=== PATIENT | male | born 1995 | race Two or more races ===

== ENCOUNTER 2019-09-25 21:40 | Emergency (ER) | payer OTHER ==
[~2019-09-25] VITALS: Ht 180.3 cm; Wt 70.3 kg
--- OUTSIDE RECORDS SUMMARY | ~2019-09-25 | XMS | Encounter Summary ---
Demographics + + + | Address | [address] | | | [place] [address] | + + + | Home Phone | | + + + | Preferred Language | Unknown | + + + | Marital Status | Single | + + + | Sikhism Affiliation | NRP | + + + | Race | Black or | + + + | Ethnic Group | Not or | + + + Author + + + | Organization | Unknown | + + + | Address | Unknown | + + + | Phone | Unavailable | + + + Support + + +---------+ + | Name | Relationship | Address | Phone | + + +---------+ + | Shyam Mcdonald | ECON | Unknown | | + + +---------+ + Care Team Providers + +------+ + | Care Reading Coach Name | Role | Phone | + +------+ + | No Pcp Per Patient | PCP | Unavailable | + +------+ + Encounter Details +--------+--------+ + + + | Date | Type | Department | Care Team | Description | +--------+--------+ + + + | 02/21/ | Travel | | | | | 2019 | | | | | +--------+--------+ + + + Social History + +-------+ +--------+------+ | Tobacco Use | Types | Packs/Day | Years | Date | | | | | Used | | + +-------+ +--------+------+ | Never Smoker | | | | | + +-------+ +--------+------+ + +------+---+---+ | Smokeless Tobacco: | Chew | | | | Never Used | | | | + +------+---+---+ + + + | Sex Assigned at | Date Recorded | | | | + + + | Not on file | | + + + + + + + | Job Start Date | Occupation | Industry | + + + + | Not on file | Not on file | Not on file | + + + + + + + + | Travel History | Travel Start | Travel End | + + + + + + | No recent travel history available. | + + documented as of this encounter Plan of Treatment Not on filedocumented as of this encounter Visit Diagnoses Not on filedocumented in this encounter"
--- OUTSIDE RECORDS SUMMARY | ~2019-09-25 | XMS | Clinical Summary ---
Demographics + + + | Address | [address] | | | [place] [address] | + + + | Home Phone | | + + + | Preferred Language | Unknown | + + + | Marital Status | Single | + + + | Taoist Affiliation | NRP | + + + | Race | Black or | + + + | Ethnic Group | Not or | + + + Author + + + | Author | NON REVENUE LOCATIONS | + + + | Organization | NON REVENUE LOCATIONS | + + + | Address | Unknown | + + + | Phone | Unavailable | + + + Support + + +---------+ + | Name | Relationship | Address | Phone | + + +---------+ + | Shyam Mcdonald | ECON | Unknown | | + + +---------+ + Care Team Providers + +------+ + | Care Property Accountant Name | Role | Phone | + +------+ + | No Pcp Per Patient | PCP | Unavailable | + +------+ + Source Comments JT is fully live on both [facility] Allergies No Known Allergies Medications + + + +---------+------+------+-------+ | Medication | Sig | Dispensed | Refills | Star | End | Statu | | | | | | t | Date | s | | | | | | Date | | | + + + +---------+------+------+-------+ | rivaroxaban 20 mg | Take 1 tablet by | 69 | 0 | 11/ | | Activ | | oral tablet | mouth once daily | tablet | | 09/09 | | e | | | with breakfast. To | | | 19 | | | | | be started once done | | | | | | | | with 15 mg dose | | | | | | | | 2x/day | | | | | | + + + +---------+------+------+-------+ Active Problems Not on file Encounters +--------+ + + + + | Date | Type | Specialty | Care Team | Description | +--------+ + + + + | 08/27/ | Telephone-S | Physical Therapy | Monae Goel, | | | 2020 | cheduled | | PT | | +--------+ + + + + | 08/27/ | MyChart | Physical Therapy | Monae Goel, | Plan | | 2020 | Encounter | | PT | | +--------+ + + + + | 03/18/ | MyChart | Physical Therapy | Monae Goel, | Coronavirus | | 2019 | Encounter | | PT | | +--------+ + + + + | 08/01/ | Office | Physical Therapy | Monae Goel, | Rupture of anterior | | 2019 | Visit | | PT | cruciate ligament of | | | | | | right knee, | | | | | | subsequent encounter | | | | | | (Primary Dx) | +--------+ + + + + | 08/01/ | Travel | | | | | 2020 | | | | | +--------+ + + + + | 07/17/ | Office | Physical Therapy | Monae Goel, | Rupture of anterior | | 2019 | Visit | | PT | cruciate ligament of | | | | | | right knee, | | | | | | subsequent encounter | | | | | | (Primary Dx) | +--------+ + + + + | 07/17/ | Travel | | | | | 2020 | | | | | +--------+ + + + + from Last 3 Months Social History + +-------+ +--------+------+ | Tobacco Use | Types | Packs/Day | Years | Date | | | | | Used | | + +-------+ +--------+------+ | Never Smoker | | | | | + +-------+ +--------+------+ + +------+---+---+ | Smokeless Tobacco: | Chew | | | | Never Used | | | | + +------+---+---+ + + +---------+ + | Alcohol Use | Drinks/Week | oz/Week | Comments | + + +---------+ + | Yes | | | Rare | + + +---------+ + + + + | Sex Assigned at [...] recent travel history available. | + + Last Filed Vital Signs + + + + + | Vital Sign | Reading | Time Taken | Comments | + + + + + | Blood Pressure | 136/78 | 05/28/2019 2:12 PM | | | | | PST | | + + + + + | Pulse | 54 | 05/28/2019 2:12 PM | | | | | PST | | + + + + + | Temperature | 37.1 C (98.7 F) | 05/28/2019 2:12 PM | | | | | PST | | + + + + + | Respiratory Rate | 18 | 05/28/2019 2:12 PM | | | | | PST | | + + + + + | Oxygen Saturation | 98% | 05/28/2019 2:12 PM | | | | | PST | | + + + + + | Inhaled Oxygen | - | - | | | Concentration | | | | + + + + + | Weight | 68.9 kg (152 lb) | 05/28/2019 2:12 PM | | | | | PST | | + + + + + | Height | 180.3 cm (5' 11") | 03/21/2019 2:12 PM | | | | | PDT | | + + + + + | Body Mass Index | 21.2 | 03/21/2019 2:12 PM | | | | | PDT | | + + + + + Plan of Treatment + + + + + | Health Maintenance | Due Date | Last Done | Comments | + + + + + | Influenza (Flu) | | 06/26/2017, 01/08/2013, | | | vaccination (#1) | 9 | 2010 | | + + + + + | Pneumococcal | Aged Out | | No longer eligible | | vaccination | | | based on patient's | | | | | age to complete this | | | | | topic | + + + + + Implants + +------+--------+ +--------+--------+--------+ | Implanted | Type | Area | Manufacture | Device | Shelf | Model | | | | | r | | Expira | / | | | | | | Identi | tion | Serial | | | | | | fier | Date | / Lot | + +------+--------+ +--------+--------+--------+ | Screw Interference Titanium | | Right: | ARTHREX | | 11/19/ | AR-137 | | 20mm 7mm Acl Pcl Cannulated | | Knee | | | 2023 | 0E / | | Sheath Sterile Accepts 2mm | | | | | | /[id number] | | Nitinol Guidepin - | | | | | | 587 | | [id number]: Qty: 1 on | | | | | | | | 03/06/2019 by Carlitos | | | | | | | | Miroslava Chaudhary MD at [facility] | | | | | | | | INPATIENT REV LOC | | | | | | | + +------+--------+ +--------+--------+--------+ | Screw, Cannulated | | Right: | ARTHREX | | 10/20/ | AR-139 | | Interference Full Thread 9 X | | Knee | | | 2023 | 0T / | | 20mmImplanted: Qty: 1 on | | | | | | /[id number] | | 03/06/2019 by Carlitos, | | | | | | 195 | | Miroslava Chaudhary MD at [facility] | | | | | | | | INPATIENT REV LOC | | | | | | | + +------+--------+ +--------+--------+--------+ Procedures + +--------+ + + + | Procedure Name | Priori | Date/Time | Associated Diagnosis | Comments | | | ty | | | | + +--------+ + + + | [place] THERAPEUTIC | Routin | 08/03/2019 | Rupture of | | | EXERCISES | e | 7:13 AM | anterior cruciate | | | | | PDT | ligament of right | | | | | | knee, subsequent | | | | | | encounter | | + +--------+ + + + | [place] THERAPEUTIC | Routin | 07/17/2019 | Rupture of | | | EXERCISES | e | 7:01 PM | anterior cruciate | | | | | PST | ligament of right | | | | | | knee, subsequent | | | | | | encounter | | + +--------+ + + + from Last 3 Months Results Not on filefrom Last 3 Months Insurance + +--------+ +--------+ + +------+ | Payer | Benefi | Subscriber | Effect | Phone | Address | Type | | | t Plan | ID | ortiz | | | | | | / | | Dates | | | | | | Group | | | | | | + +--------+ +--------+ + +------+ | PACIFICSOURCE | PACIFI | [phone] | 05/23/19 | [phone] | [address] | PPO | | | [facility] | | 19-Pre | [address] | [phone] | | | | E | | sent | | [place] | | | | | | | | , [place] | | | | | | | | [phone] | | + +--------+ +--------+ + +------+ | COVENTRY FIRST | COVENT | [phone] | 12/22/19 | | | HMO | | HEALTH | RY | x | 18-Pre | | | | | | FIRST | | sent | | | | | | HEALTH | | | | | | + +--------+ +--------+ + +------+ | PROV PREF DIRECT | PROV | [id number] | | | | PPO | | | PREF | | 019-Pr | | | | | | DIRECT | | esent | | | | + +--------+ +--------+ + +------+ + +--------+ +--------+ + + | Guarantor Name | Accoun | Relation to | Date | Phone | Billing Address | | | t Type | Patient | of | | | | | | | | | | + +--------+ +--------+ + + | Arnie Mcdonald E | Person | Self [birth year] | [address] | | | al/Fam | | 1994 | [phone] | [place] | | | elfego | | | 0 (Home) | [phone] | + +--------+ +--------+ + + | Arnie Mcdonald E | Specia | Self | [birth year] | [address] | | | l | | 1994 | | [place] | | | [place] | | | 0 (Home) | [phone] | | | g | | | | | + +--------+ +--------+ + + Advance Directives + + + + + | Code Status | Date | Date | Comments | | | Activated | Inactivated | | + + + + + | Full Code | 03/06/2019 | 03/06/2019 | | | | 7:50 AM | 11:44 PM | | + + + + +
--- OUTSIDE RECORDS SUMMARY | ~2019-09-25 | XMS | Encounter Summary ---
Demographics + + + | Address | [address] | | | [place] [address] | + + + | Home Phone | | + + + | Preferred Language | Unknown | + + + | Marital Status | Single | + + + | Congregation Affiliation | NRP | + + + | Race | Black or | + + + | Ethnic Group | Not or | + + + Author + + + | Author | [facility] [employer] [facility] | + + + | Organization | [facility] | + + + | Address | Unknown | + + + | Phone | Unavailable | + + + Support + + +---------+ + | Name | Relationship | Address | Phone | + + +---------+ + | Shyam Mcdonald | ECON | Unknown | | + + +---------+ + Care Team Providers + +------+ + | Care Cigarette Making Machine Catcher Name | Role | Phone | + +------+ + | No Pcp Per Patient | PCP | Unavailable | + +------+ + Reason for Visit + + + | Reason | Comments | + + + | Knee pain | | + + + Physical Therapy (Routine) + +--------+ + + + + | Status | Reason | Specialty | Diagnoses / | Referred By | Referred To | | | | | Procedures | Contact | Contact | + +--------+ + + + + | Authorized | | Physical | Diagnoses | Carlitos, | [facility] | | | | Therapy | Rupture of | Bobby | [address] | | | | | anterior | [address] | | | | | cruciate | [address] | Mailcode: | | | | | ligament of | [place], [place] | [address] | | | | | right knee, | [address] | for Health | | | | | initial | Phone: | and Healing, | | | | | encounter | [phone] | Building [address], | | | | | Procedures | Fax: | [address] | | | | | PHYSICAL | [phone] | [place], [place] | | | | | THERAPY | | [address] | | | | | REFERRAL | | Phone: | | | | | | | [phone] | | | | | | | Fax: | | | | | | | [phone] | + +--------+ + + + + Encounter Details +--------+---------+ + + + | Date | Type | Department | Care Team | Description | +--------+---------+ + + + | 05/29/ | Office | [facility] Physical | Monae Ureña, | Rupture of anterior | | 2019 | Visit | Therapy Services at | PT [address] [facility] | cruciate ligament of | | | | [facility] | [facility] | right knee, | | | | [address] | [facility] [place] [place] | subsequent encounter | | | | Mailcode: CH3P | [address] | (Primary Dx) | | | | [facility] | | | | | | and Healing, | | | | | | [address] | | | | | | Floor [place], [place] | | | | | | [address] | | | | | | [phone] | | | +--------+---------+ + + + Social History + +-------+ [...] + + documented as of this encounter Progress Notes CkgabrielMonae, PT - 05/29/2019 1:30 PM PSTFormatting of this note might be different fr om the original. 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 SUBJECTIVE: 12 weeks s/p procedure Is eager to progress Has been working OBJECTIVE: Therapeutic Exercise/Home program DL knee extension DL up, SL down knee extension SL hamstring curls SL leg press Lunges in places with weight SL air squat SL balance, slight knee bend, reach and tap in directions Review of hip strengthening: side steps, side plank, plank Discussion on biodex Cleared to progress weight with backsquat slowly ASSESSMENT: Arnie is post-op R ACL repair with patellar tendon autograft 03/06/19, post-op course compl icated by DVT Progressing strength but Biodex not performed today as he is only now cleared for knee exte nsion Appropriate fatigue in clinic today with progression of exercises Is eager to return to sport; needed significant time discussinbg the importance of avoiding quick progression and timeline SHORT-TERM GOALS, discussed with patient, due in 8 weeks: SLR no lag Full pain free knee ROM Good patella mobility Ambulate community distances with normal gait LONG-TERM GOALS, discussed with patient, due in 36 weeks: Independent with HEP Able to demonstrate proper form with squat Pass functional knee sport test Return to hobbies without limitations PLAN: ROM per protocol Quad faciliation Patella mobs Stationary cycle as appropriate Modalities as needed This note is to serve as the discharge summary if the patient fails to attend further PT ap pointments or contact the therapist regarding any change in their status. MONAE UREÑA PT [facility] PHYSICAL THERAPY SERVICES AT [address] [place] Mailcode: [place] [address] Scheduled Appointment time: 1:30 PM The patient was seen for a total of 43 minutes of treatment time. 43 minutes was in direct contact care as described above. This includes flowsheets and patient instructions as utiliz ed. Treatment Interventions duration in minutes: Procedure:Therapeutic Exercise 43 min Frequency: 2x/wk x 4 weeks, then 1x/wk x 20 weeks Duration: 8 months (must exceed or match Medicare service period request) Service period from: 03/14/2019 to: 02/22/20 (Medicare must match duration or be no greater than 90 days if proposed duration is greater than 3 months) Start of care: 03/14/2019 Referral information Authorizing Provider: BOBBY REYNA [[id number]] Onset/Referral Date: 02/21/19 Primary/Referral Diagnosis: S83.511D Rupture of anterior cruciate ligament of right knee, subsequent encounter Next progress report 05/13/2019 Insurance: Payor: [employer]point / Plan: [employer] / Product Type: PPO / Number visits authorized: - Number visits used: 7 Outcome Measure 03/14/2019 Lower Extremity Functional Scale Score: 19 Percent of Functional Level: 23.75 % Percent of Disability/Impairment (MCID decrease of 11%): 76.25 % documented in this e ncounter Plan of Treatment Not on filedocumented as of this encounter Procedures + +--------+ + + + | Procedure Name | Priori | Date/Time | Associated Diagnosis | Comments | | | ty | | | | + +--------+ + + + | [place] THERAPEUTIC | Routin | 05/29/2019 | Rupture of | | | EXERCISES | e | 3:43 PM | anterior cruciate | | | | | PST | ligament of right | | | | | | knee, subsequent | | | | | | encounter | | + +--------+ + + + documented in this encounter Visit Diagnoses + + | Diagnosis | + + | Rupture of anterior cruciate ligament of right knee, subsequent encounter - Primary | + + documented in this encounter"
--- OUTSIDE RECORDS SUMMARY | ~2019-09-25 | XMS | Encounter Summary ---
Demographics + + + | Address | [address] | | | [place] [address] | + + + | Home Phone | | + + + | Preferred Language | Unknown | + + + | Marital Status | Single | + + + | Orthodoxy Affiliation | NRP | + + + | Race | Black or | + + + | Ethnic Group | Not or | + + + Author + + + | Author | [facility] [employer] [facility] | + + + | Organization | [facility] [employer] [facility] | + + + | Address | Unknown | + + + | Phone | Unavailable | + + + Support + + +---------+ + | Name | Relationship | Address | Phone | + + +---------+ + | Shyam Mcdonald | ECON | Unknown | | + + +---------+ + Care Team Providers + +------+ + | Care Adapted Physical Education Specialist Name | Role | Phone | + +------+ + | No Pcp Per Patient | PCP | Unavailable | + +------+ + Encounter Details +--------+ + + + + | Date | Type | Department | Care Team | Description | +--------+ + + + + | 03/14/ | Hospital | Diagnostic Imaging | Miroslava Urbina | | | 2019 | Encounter | Services at [facility] | MD Jet [address] | | | | | [address] | [place] [facility] [place] | | | | | Mailcode: [place] | [address] | | | | | [facility] and | [phone] | | | | | [facility] [address] | | | | | | [facility] [place] | | | | | | [address] | | | | | | [phone] | | | +--------+ + + + + Social History + +-------+ [...] + + documented as of this encounter Medications at Time of Discharge + + + +---------+ + + | Medication | Sig | Dispensed | Refills | Start | End Date | | | | | | Date | | + + + +---------+ + + | rivaroxaban 20 mg | Take 1 tablet by | 69 | 0 | 04/05/20 | | | oral tablet | mouth once daily | tablet | | 19 | | | | with breakfast. To | | | | | | | be started once done | | | | | | | with 15 mg dose | | | | | | | 2x/day | | | | | + + + +---------+ + + | rivaroxaban 15 mg | Take 1 tablet by | 42 | 0 | 03/14/20 | | | oral tablet | mouth two times | tablet | | 19 | 9 | | | daily for 21 days. | | | | | + + + +---------+ + + documented as of this encounter Plan of Treatment Not on filedocumented as of this encounter Procedures + +--------+ + + + | Procedure Name | Priori | Date/Time | Associated Diagnosis | Comments | | | ty | | | | + +--------+ + + + | VASC LAB VENOUS | Urgent | 03/14/2019 | Right calf pain | Results for this | | DUPLEX LOWER | | 2:12 PM | | procedure are in the | | EXTREMITY RT | | PDT | | results section. | + +--------+ + + + documented in this encounter Results VASC LAB VENOUS DUPLEX LOWER EXTREMITY RT (03/14/2019 2:12 PM PDT) + + | Specimen | + + | | + + + + + | Narrative | Performed At | + + + | Right: The duplex scanner was used to examine the deep and | [facility] | | superficial veins of the right lower extremity. There is occlusive | [facility] | | thrombus in the right posterior tibial and peroneal veins. All | [place] | | other veins of the right lower extremity are patent with normal flow | | | and responses to augmentation and compression maneuvers and no other | | | thrombus is noted. The left leg common femoral vein was examined and | | | is patent with normal flow. Conclusions: There is deep vein | | | thrombosis in the right axial veins of the calf. No other venous | | | thrombosis detected. The left lower extremity was not examined. | | | I have personally reviewed the images and, if necessary, | | | edited the report. I agree with the report as now presented. | | + + + + + | Procedure Note | + + | Service Account, Traackr Res In Interface - 03/14/2019 2:27 PM PDT Right: The duplex | | scanner was used to examine the deep and superficial veins of the right lower | | extremity. There is occlusive thrombus in the right posterior tibial and peroneal | | veins. All other veins of the right lower extremity are patent with normal flow and | | responses to augmentation and compression maneuvers and no other thrombus is noted. The | | left leg common femoral vein was examined and is patent with normal flow.Conclusions: | | There is deep vein thrombosis in the right axial veins of the calf. No other venous | | thrombosis detected.The left lower extremity was not examined.I have personally reviewed | | the images and, if necessary, edited the report. I agree with the report as now | | presented. | | | |I have personally reviewed the images and, if necessary, edited the report. I agree with t he report as now presented. | + + + +---------+ + + | Performing | Address | City/State/Zipcode | Phone Number | | Organization | | | | + +---------+ + + | [facility] | | | | | [facility] | | | | + +---------+ + + documented in this encounter Visit Diagnoses + + | Diagnosis | + + | Right calf pain | + + documented in this encounter"
--- OUTSIDE RECORDS SUMMARY | ~2019-09-25 | XMS | Encounter Summary ---
Demographics + + + | Address | [address] | | | [place] [address] | + + + | Home Phone | | + + + | Preferred Language | Unknown | + + + | Marital Status | Single | + + + | Jainism Affiliation | NRP | + + + | Race | Black or | + + + | Ethnic Group | Not or | + + + Author + + + | Author | [facility] [facility] | + + + | Organization | [facility] | + + + | Address | Unknown | + + + | Phone | Unavailable | + + + Support + + +---------+ + | Name | Relationship | Address | Phone | + + +---------+ + | Shyam Mcdonald | ECON | Unknown | | + + +---------+ + Care Team Providers + +------+ + | Care Glass Finisher Name | Role | Phone | + +------+ + | No Pcp Per Patient | PCP | Unavailable | + +------+ + Encounter Details +--------+ + + + + | Date | Type | Department | Care Team | Description | +--------+ + + + + | 03/14/ | Telephone | Orthopaedics | Brian Butt MD | | | 2019 | | [facility] | [address] | | | | | for Health and | Frances Castillo [place], | | | | | Healing [address] | [place] [address] | | | | | [address] Mailcode: | [phone] | | | | | [facility] | | | | | | Health and Healing, | | | | | | | | | | | | [place], [place] | | | | | | [address] | | | | | | [phone] | | | +--------+ + + + [...]
--- OUTSIDE RECORDS SUMMARY | ~2019-09-25 | XMS | Encounter Summary ---
Demographics + + + | Address | [address] | | | [place] [address] | + + + | Home Phone | | + + + | Preferred Language | Unknown | + + + | Marital Status | Single | + + + | Samaritan Affiliation | NRP | + + + | Race | Black or | + + + | Ethnic Group | Not or | + + + Author + + + | Author | [facility] | + + + | Organization | [facility] | + + + | Address | Unknown | + + + | Phone | Unavailable | + + + Support + + +---------+ + | Name | Relationship | Address | Phone | + + +---------+ + | Shyam Mcdonald | ECON | Unknown | | + + +---------+ + Care Team Providers + +------+ + | Care Loaders Name | Role | Phone | + [...] | | | | ligament of | [place], [place] | [address] | | | | | right knee, | [address] | for Health | | | | | initial | Phone: | and Healing, | | | | | encounter | [phone] | [address], | | | | | Procedures | Fax: | [address] | | | | | PHYSICAL | [phone] | [place], [place] | | | | | THERAPY | | [address] | | | | | REFERRAL | | Phone: | | | | | | | [phone] | | | | | | | Fax: | | | | | | | [phone] | + +--------+ + + + + Encounter Details +--------+---------+ + + + | Date | Type | Department | Care Team | Description | +--------+---------+ + + + | 07/17/ | Office | [facility] | Monae Ureña, | Rupture of anterior | | 2019 | Visit | Therapy Services at | PT [address] [facility] | cruciate ligament of | | | | [facility] | [facility] | right knee, | | | | [address] | [facility] | subsequent encounter | | | | Mailcode: CH3P | [id number] | (Primary Dx) | | | | [facility] | | | | | | and Healing, | | | | | | [address] | | | | | | Floor [place], [place] | | | | | | [address] | | | | | | [phone] | | | +--------+---------+ + + + [...] documented as of this encounter Progress Notes Amando Monae, PT - 07/17/2019 12:00 PM PSTFormatting of this note might be different fr om the original. 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 SUBJECTIVE: 18 weeks s/p procedure + weeks When he ran 10 mins straight it hurt yesterday Having lots of pain in the knee OBJECTIVE: SL squat/step down: poor control, pain TREATMENT: TherEx: Discussion on stopping running/plyometrics SL step down 3x10 SL squat with yoga ball 3x10 Lunge static 3x10 SL knee extension 3x10 SL balance reaches 3x10 Review of hip strengthening Therapeutic Exercise/Home program Access Code: [email or web address] URL: [email or web address] Date: 07/17/2019 Prepared by: Monae Ureña Exercises Static Lunge - 10 reps - 3 sets - 1x daily - 7x weekly Forward Step Downs - 10 reps - 3 sets - 1x daily - 7x weekly Single Leg Quarter Squat with [place] Islander Ball at Wall - 10 reps - 3 sets - 1x daily - 7x weekly Single Leg Balance with Four Way Reach and Rotation - 10 reps - 3 sets - 1x daily - 7x week ly Single Leg Knee Extension with Weight Machine - 10 reps - 3 sets - 1x daily - 7x weekly Single Leg Hamstring Curl with Weight Machine - 10 reps - 3 sets - 1x daily - 7x weekly Single Leg Press - 10 reps - 3 sets - 1x daily - 7x weekly Prone Quadriceps Stretch with Strap - 1 reps - 3 sets - 60 hold - 1x daily - 7x weekly Side Stepping with Resistance at Thighs and Feet - 10 reps - 3 sets - 1x daily - 7x weekly ASSESSMENT: Arnie is post-op R ACL repair with patellar tendon autograft 03/06/19, post-op course compl icated by DVT Patient has had a lot of life stressors leading him to focus on running vs strengthening. H as now developed PFPS. Decreased activity levels to stop plyometrics/running. Re-initiated s trengthening with focus on knee motor control. Will progress back to jogging when able. SHORT-TERM GOALS, discussed with patient, due in [...] regarding any change in their status. MONAE UREÑA, PT [facility] PHYSICAL THERAPY SERVICES AT [address] Mailcode: [address] [address] Scheduled Appointment time: 12:00 PM The patient was seen for a total of 45 minutes of treatment time. 45 minutes was in direct contact care as described above. This includes flowsheets and patient instructions as utiliz ed. Treatment Interventions duration in minutes: Procedure:Therapeutic Exercise 45 min Frequency: 2x/wk x 4 weeks, then [...] encounter Next progress report 05/13/2019 Insurance: Payor: JOSE / Plan: JOSE / Product Type: PPO / Number visits authorized: - Number visits used: 9 Outcome Measure 03/14/2019 Lower Extremity Functional Scale [...] | + +--------+ + + + | CT THERAPEUTIC | Routin | 07/17/2019 | Rupture [...]
--- OUTSIDE RECORDS SUMMARY | ~2019-09-25 | XMS | Encounter Summary ---
Demographics + + + | Address | [address] | | | [place] [address] | + + + | Home Phone | | + + + | Preferred Language | Unknown | + + + | Marital Status | Single | + + + | Catholic Affiliation | NRP | + + + | Race | Black or | + + + | Ethnic Group | Not or | + + + Author + + + | Author | [facility] | + + + | Organization | [facility] | + + + | Address | Unknown | + + + | Phone | Unavailable | + + + Support + + +---------+ + | Name | Relationship | Address | Phone | + + +---------+ + | Shyam Mcdonald | ECON | Unknown | | + + +---------+ + Care Team Providers + +------+ + | Care Fur Dry Cleaner Hand Name | Role | Phone | + +------+ + | No Pcp Per Patient | PCP | Unavailable | + +------+ + Reason for Referral Diagnostic Testing (Urgent) +--------+--------+ + + + + | Status | Reason | Specialty | Diagnoses / | Referred By | Referred To | | | | | Procedures | Contact | Contact | +--------+--------+ + + + + | Closed | | Radiology | Diagnoses | [place], | [facility] | | | | | Rupture of | David C, | [address] | | | | | anterior | MD [address] | [facility]real [facility] | | | | | cruciate | [address] | | | | | ligament of | Frances Castillo | Research | | | | | right knee, | [place], [place] | [place] | | | | | initial | [address] | [place], [place] | | | | | encounter | Phone: | [phone] | | | | | Procedures | [phone] | Phone: | | | | | MRI KNEE | Fax: | [phone] | | | | | RIGHT WO | [phone] | Fax: | | | | | CONTRAST CA | | [phone] | | | | | MRI LOWER | | | | | | | EXTREM JT, | | | | | | | W/O CONTRAST | | | +--------+--------+ + + + + Encounter Details +--------+ + + + + | Date | Type | Department | Care Team | Description | +--------+ + + + + | 02/05/ | Documentati | [facility] Primary Care | David Louie, | | | 2019 | on | at [place] [facility] | [address] [facility] | | | | | [address] [facility] | Isreal Daniels | | | | | [facility] | [place], [place] | | | | | [place], [place] | [address] | | | | | [address] | [phone] | | | | | [phone] | | | +--------+ + + + + Social History + +-------+ +--------+------+ | Tobacco Use | Types | Packs/Day | Years | Date | | | | | Used | | + +-------+ +--------+------+ | Never Assessed | | | | | + +-------+ +--------+------+ + + + | Sex Assigned at [...] Not on filedocumented as of this encounter Results MRI KNEE RIGHT WO CONTRAST (02/17/2019 5:55 PM PDT) + + | Specimen | + + | | + + + + + | Narrative | Performed At | + + + | EXAM: MRI KNEE RIGHT WO CONTRAST HISTORY: Suspected ACL tear, | [facility] | | also positive 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 | | | FINDINGS: CRUCIATE LIGAMENTS: Anterior cruciate ligament is | | | completely torn. The posterior cruciate ligament is intact. | | | COLLATERAL LIGAMENTS: The medial collateral ligament and components of | | | the lateral collateral ligamentous complex (including the iliotibial | | | band, fibular collateral ligament, biceps femoris tendon, and | | | popliteus tendon) are intact. MEDIAL COMPARTMENT: There is linear | | | intermediate signal within the posterior horn of the medial meniscus | | | which extends down to but does not definitively traverse the | | | underlying tibial surface and may reflect early mucoid degeneration | | | versus a small nondisplaced horizontal tear (image 8 sagittal T2 | | | series). The articular cartilage is normal. Alignment is normal. | | | LATERAL COMPARTMENT: The lateral meniscus is intact. The articular | | | cartilage is normal. Alignment is normal. EXTENSOR | | | MECHANISM/PATELLOFEMORAL COMPARTMENT: The quadriceps and patellar | | | tendons are intact. Patellofemoral alignment is normal. The medial | | | and lateral retinacular complexes are intact. The patellar and | | | femoral trochlear articular cartilage is preserved. BONE: Bone | | | contusions involving the posterior lateral tibial plateau and outer | | | lateral femoral condyle. No fracture line evident. MISCELLANEOUS: | | | There is no joint effusion. No bursitis or popliteal cyst is seen. | | | The muscles are normal in bulk and signal intensity. IMPRESSION: | | | Completely torn ACL. Possible tiny undersurface tear versus | | | myxoid degeneration involving the posterior horn medial meniscus. | | | I have personally reviewed the images and, if necessary, | | | edited the report. I agree with the report as now presented. | | | Final signature: Adelia Guerra MD 02/19/2019 4:21 PM | | | Preliminary: Martin Hall MD 02/19/2019 9:44 AM Dictation | | | initiated: Martin Hall MD 02/19/2019 7:58 AM | | + + + + + | Procedure Note | + + | Service Account, Radiant Res In Interface - 02/19/2019 4:22 PM PDT EXAM: MRI KNEE | | RIGHT WO CONTRAST HISTORY: Suspected ACL tear, also positive Jonatan. [employer] athlete | | COMPARISON: Right knee radiographs 02/05/2019 TECHNIQUE: Multiplanar, multisequence | | imaging of the knee was performed without contrast agent. FINDINGS: CRUCIATE LIGAMENTS: | | Anterior cruciate ligament is completely torn. The posterior cruciate ligament is | | intact. COLLATERAL LIGAMENTS: The medial collateral ligament and components of the | | lateral collateral ligamentous complex (including the iliotibial band, fibular | | collateral ligament, biceps femoris tendon, and popliteus tendon) are intact. MEDIAL | | COMPARTMENT: There is linear intermediate signal within the posterior horn of the medial | | meniscus which extends down to but does not definitively traverse the underlying tibial | | surface and may reflect early mucoid degeneration versus a small nondisplaced | | horizontal tear (image 8 sagittal T2 series). The articular cartilage is normal. | | Alignment is normal. LATERAL COMPARTMENT: The lateral meniscus is intact. The articular | | cartilage is normal. Alignment is normal. EXTENSOR MECHANISM/PATELLOFEMORAL | | COMPARTMENT: The quadriceps and patellar tendons are intact. Patellofemoral alignment | | is normal. The medial and lateral retinacular complexes are intact. The patellar and | | femoral trochlear articular cartilage is preserved. BONE: Bone contusions involving the | | posterior lateral tibial plateau and outer lateral femoral condyle. No fracture line | | evident. MISCELLANEOUS: There is no joint effusion. No bursitis or popliteal cyst is | | seen. The muscles are normal in bulk and signal intensity. IMPRESSION: Completely torn | | ACL. Possible tiny undersurface tear versus myxoid degeneration involving the posterior | | horn medial meniscus. I have personally reviewed the images and, if necessary, | | edited the report. I agree with the report as now presented. Final signature: Adelia Chowdhury | | MD Charlie 02/19/2019 4:21 PM Preliminary: Martin Hall MD 02/19/2019 9:44 AM | | Dictation initiated: Martin Hall MD 02/19/2019 7:58 AM | | | |IMPRESSION: | | | |Completely torn ACL. | | | |Possible tiny undersurface tear versus myxoid degeneration involving the posterior horn med ial meniscus. | | | | | | | | | | | |I have personally reviewed the images and, if necessary, edited the report. I agree with th e report as now presented. | | | |Final signature: Adelia Guerra MD 02/19/2019 4:21 PM | |Preliminary: Martin Hall MD 02/19/2019 9:44 AM | |Dictation initiated: Martin Hall MD 02/19/2019 7:58 AM | + + + +---------+ + + | Performing | Address | City/State/Zipcode | Phone Number | | Organization | | | | + +---------+ + + | [facility] | | | | | VOICE RECOGNITION 2 | | | | + +---------+ + + documented in this encounter Visit Diagnoses + + | Diagnosis | + + | Rupture of anterior cruciate ligament of right knee, initial encounter - Primary | + + documented in this encounter"
--- OUTSIDE RECORDS SUMMARY | ~2019-09-25 | XMS | Encounter Summary ---
Demographics + + + | Address | [address] | | | [place] [address] | + + + | Home Phone [...] Author + + + | Author | [facility] | + + + | Organization | [facility] | + + + | Address | Unknown | + + + | Phone | Unavailable | + + + Support + + +---------+ + | Name | Relationship | Address | Phone | + + +---------+ + | Shyam Mcdonald | ECON | Unknown | | + + +---------+ + Care Team Providers + +------+ + | Care Corporate Real Estate Manager Name | Role | Phone | + [...] | | | | ligament of | [place], [place] | [address] | | | | | right knee, | [address] | for Health | | | | | initial | Phone: | and Healing, | | | | | encounter | [phone] | [address], | | | | | Procedures | Fax: | [address] | | | | | PHYSICAL | [phone] | [place], [place] | | | | | THERAPY | | [address] | | | | | REFERRAL | | Phone: | | | | | | | [phone] | | | | | | | Fax: | | | | | | | [phone] | + +--------+ + + + + Encounter Details +--------+---------+ + + + | Date | Type | Department | Care Team | Description | +--------+---------+ + + + | 04/05/ | Office | [facility] | Monae Ureña, | Rupture of anterior | | 2019 | Visit | Therapy Services at | PT [address] [facility] | cruciate ligament of | | | | [facility] | [facility] | right knee, | | | | [address] | [facility] [place] [place] | subsequent encounter | | | | Mailcode: CH3P | [phone] | (Primary Dx) | | | | [facility] | | | | | | and Healing, | | | | | | [address] | | | | | | Floor [place], [place] | | | | | | [address] | | | | | | [phone] | | | +--------+---------+ + + + [...] + + documented as of this encounter Patient Instructions Patient Instructions Monae Ureña, PT - 04/05/2019 10:30 AM PSTBanded hip work sidelying hip lifts Straight leg raise with cuff weight Lateral step down-hold until pain settles Balance on foam or BOSU BOSU mini squats Side steps with band around tops of knees Plank series Squats Shuttle Wall slides: not full 90 degrees, slow movement documented in this encounter Progress Notes Monae Ureña, PT - 04/05/2019 10:30 AM PSTFormatting of this note might be different fr om the original. Insurance: Payor: [employer] / Plan: [employer] / Product Type: PPO / Non-Medicare Procedure: Right knee arthroscopy with ACL reconstruction using patellar tendon autograft 03/06/19 Plan: WBAT locked in extension until return of quad function. ROM as tolerated: emphasis on full extension within first 2 weeks. Patellar mobilizations, straight leg raise in brace, side leg raise. 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 SUBJECTIVE 04/05/2019 Doing well Bothered his medial knee when getting into a low car Since then it has been achy with some of the exercises OBJECTIVE: Posture/alignment/observation: wearing drop down knee brace unlocked Well healed incision, some puckering at incision Pt instructed on self scar mobs Mild peripatellar swelling but patient reports this has been consistent Gait: lacking TKE functionally; improved with verbal cueing Knee ROM: 0-0-115 Patella Mobility: good, not painful Therapeutic Exercise SLR sitting with 5 lbs 2x10 Discussion on SAQ- painful so held temporarily Foam stance SL 1 min- easy BOSU SL stance 2 min BOSU mini squats Wall slides to <80 deg biasing injured (to replace lateral step down since it is currently painful) Band walks with blue band above knees 3x10 Current home exercise program: sidelying hip lifts with weight Straight leg raise with cuff weight Lateral step down-hold until pain settles Balance on foam or BOSU BOSU mini squats Side steps with band around tops of knees Plank series Shuttle Wall slides: not full 90 degrees, slow movement Edema management: legs on wall dailly ASSESSMENT: Arnie is post-op R ACL repair with patellar tendon autograft 03/06/19, post-op course compl icated by DVT Small setback after bothering knee getting into car; temporarily held painful exercises of SAQ/lateral step down and provided alternatives Lacking TKE with gait due to habit (has full ROM); this improved with verbal cueing Overall, progressing great for timeline SHORT-TERM GOALS, discussed with patient, due [...] change in their status. MONAE UREÑA, PT [facility] PHYSICAL THERAPY SERVICES AT [address] Mailcode: [place] [address] Scheduled Appointment time: 10:30 AM The patient was seen for a total of 42 minutes of treatment time. 42 minutes was in direct contact care as described above. This includes flowsheets and patient instructions as utiliz ed. Treatment Interventions duration in minutes: Procedure:Therapeutic Exercise 42 min Frequency: 2x/wk x 4 weeks, then [...] encounter Next progress report 05/13/2019 Insurance: Payor: [employer] / Plan: [employer] / Product Type: PPO / Number visits authorized: - Number visits used: 4 Outcome Measure 03/14/2019 Lower Extremity Functional Scale Score: 19 Percent of Functional Level: 23.75 % Percent of Disability/Impairment (MCID decrease of 11%): 76.25 % . documented in this e ncounter Plan of Treatment Not on filedocumented as of this encounter Procedures + +--------+ + + + | Procedure Name | Priori | Date/Time | Associated Diagnosis | Comments | | | ty | | | | + +--------+ + + + | AL THERAPEUTIC | Routin | 04/05/2019 | Rupture of | | | EXERCISES | e | 12:23 PM | anterior cruciate | | | [...]
--- OUTSIDE RECORDS SUMMARY | ~2019-09-25 | XMS | Encounter Summary ---
Demographics + + + | Address | [address] | | | [place] [address] | + + + | Home Phone | | + + + | Preferred Language | Unknown | + + + | Marital Status | Single | + + + | Anabaptist Affiliation | NRP | + + + | Race | Black or | + + + | Ethnic Group | Not or | + + + Author + + + | Author | [facility] | + + + | Organization | [facility] | + + + | Address | Unknown | + + + | Phone | Unavailable | + + + Support + + +---------+ + | Name | Relationship | Address | Phone | + + +---------+ + | Shyam Mcdonald | ECON | Unknown | | + + +---------+ + Care Team Providers + +------+ + | Care Clinical Liaison Name | Role | Phone | + +------+ + | No Pcp Per Patient | PCP | Unavailable | + +------+ + Reason for Visit AUTH/CERT +--------+--------+ + + + + | Status | Reason | Specialty | Diagnoses / | Referred By | Referred To | | | | | Procedures | Contact | Contact | +--------+--------+ + + + + | | | | | | | +--------+--------+ + + + + Encounter Details +--------+---------+ + + + | Date | Type | Department | Care Team | Description | +--------+---------+ + + + | 03/06/ | Surgery | [facility] | Miroslava Urbina | RIGHT KNEE | | 2019 | | [place] [facility] | MD Jet [address] | ARTHROSCOPY WITH | | | | and Healing Surgery | [place] | ANTERIOR CRUCIATE | | | | Center Admitting | [address] | LIGAMENT | | | | Desk Located on the | [phone] | RECONSTRUCTION USING | | | | 4th floor [address] | [address]ENDON | | | | [address] [place], | | [place]OG[place]FT; | | | | [place] [address] | | | +--------+---------+ + + + [...] + + documented as of this encounter Last Filed Vital Signs + + + + + | Vital Sign | Reading | Time Taken | Comments | + + + + + | Blood Pressure | 133/81 | 03/06/2019 5:18 PM | | | | | PDT | | + + + + + | Pulse | 82 | 03/06/2019 5:18 PM | | | | | PDT | | + + + + + | Temperature | 36.6 C (97.9 F) | 03/06/2019 3:00 PM | | | | | PDT | | + + + + + | Respiratory Rate | 16 | 03/06/2019 5:18 PM | | | | | PDT | | + + + + + | Oxygen Saturation | 100% | 03/06/2019 5:15 PM | | | | | PDT | | + + + + + | Inhaled Oxygen | - | - | | | Concentration | | | | + + + + + | Weight | 70.3 kg (155 lb) | 03/06/2019 8:00 AM | | | | | PDT | | + + + + + | Height | 180.3 cm (5' 11") | 03/06/2019 8:00 AM | | | | | PDT | | + + + + + | Body Mass Index | 21.62 | 03/06/2019 8:00 AM | | | | | PDT | | + + + + + documented in this encounter Discharge Instructions Discharge - Day Procedure Instructions Tenzin Laureano MD - 03/06/2019 1:35 PM PD TPrincipal Diagnosis: Right knee ACL rupture Principal Procedure: Right ACL reconstruction with patellar tendon autograft. Right knee ar throscopy Reason for Admission: Surgery Condition on Discharge: Stable Disposition: Home Follow up care: As scheduled Activity Restrictions: HKB locked in extension until nerve block wears off. Then follow po stoperative protocol. Diet: Resume usual diet Call [phone] and ask for the orthopedic resident rehabilitation therapist for difficulty breathing or u nusual shortness of breath , excessive bleeding, drainage at the operative site, fevers, chi lls, increased pain that is not relieved by pain medications, persistent nausea or vomiting. WOUND CARE INSTRUCTIONS - Please leave surgical dressing on for 3 days, keep area clean and dry - You may remove the dressing after 3 days and shower. Allow the water to run over the inc ision, but do not scrub the incision. LEAVE ZIPLINE IN PLACE UNTIL OUTPATIENT FOLLOW-UP. - If the incision is still draining, then you should apply a new dressing. - If the incision is not draining, then it does not need to be covered. - Do not soak or submerge the incision in bath or hot tub for 3-4 weeks Signed by: TENZIN LAUREANO MD Additional Instructions Jessie Marcelo RN - 03/06/2019General Discharge Instructions for Same-Day Procedure Patients: ? Remember that you are under the influence of medications. Do not stay alone. A responsible person should be with you. Do not drive, drink alcohol or make important personal or business decisions for 24 hour s. ? Resume normal activity and return to work when advised by your Doctor. Pain Management: Your last oral pain medication was given at: ? Please follow your Doctor s instructions on the medication bottle. ? Do not take pain medication on an empty stomach, as this may cause nausea and vomiting. ? Do not drive or drink alcohol while on narcotic pain medication. ? If pain is not relieved or increases despite following these instructions, please call yo Doctor. Diet and Medications You may return to your normal diet and take your normal medications unless otherwise instru cted by your physician. ? If you do not experience nausea or vomiting resume your regular diet. Eat lightly and av oid large, high fat or highly spiced meals for 24-48 hours. ? Constipation can be a side effect of narcotic pain medication. Take stool softeners, inc rease dietary fiber and drink plenty of water to prevent this. IV Site Care Instructions: ? Monitor IV site for pain, redness, swelling and/or drainage. If present, call your Docto r immediately. ? Minor redness and/or tenderness may be treated with warm, moist compresses for 24-48 hour s. If the area is still red and/or tender after this, notify your Doctor. Call your Doctor if you experience: ? Persistent nausea or vomiting. ? Fever ?101F or chills. ? Increased or uncontrolled pain despite taking pain medications. Call 911 if you experience difficulty breathing, unusual shortness of breath or chest pain. How to Reach Your Doctor After hours, weekends and holidays, call the [facility] at [phone] and asked to have the doctor who is oncall for your doctor to be paged to your phone number. documented in this encounter Plan of Treatment + +---------+--------+ + + | Name | Type | Priori | Associated Diagnoses | Order Schedule | | | | ty | | | + +---------+--------+ + + | INTRAPROCEDURE | Imaging | Routin | | One Time for 1 | | IMAGING | | e | | Occurrences starting | | | | | | 03/06/2019 until | | | | | | 03/06/2019, 1 | | | | | | completed | + +---------+--------+ + + documented as of this encounter Procedures + +--------+ + + + | Procedure Name | Priori | Date/Time | Associated Diagnosis | Comments | | | ty | | | | + +--------+ + + + | PROCEDURE NOTE | Routin | 03/06/2019 | | Results for this | | | e | 5:38 PM | | procedure are in the | | | | PDT | | results section. | + +--------+ + + + | X-RAY KNEE 2 VIEWS | Urgent | 03/06/2019 | | Results for this | | RIGHT | | 2:01 PM | | procedure are in the | | | | PDT | | results section. | + +--------+ + + + | ARTHROSCOPIC MEDIAL | Thomasi | 03/06/2019 | S83.511A, S83.241A | | | MENISCAL REPAIR | ve | 10:52 AM | | | | | Surgic | PDT | | | | | al | | | | + +--------+ + + + | KNEE ARTHROSCOPY ACL | Electi | 03/06/2019 | S83.511A, S83.241A | | | W/BONE PATELLA | ve | 10:52 AM | | | | TENDON AUTOGRAFT | Surgic | PDT | | | | | al | | | | + +--------+ + + + | INTRAPROCEDURE | Routin | 03/06/2019 | | Results for this | | IMAGING | e | 7:50 AM | | procedure are in the | | | | PDT | | results section. | + +--------+ + + + | CARDIOLOGY | | 03/06/2019 | | Results for this | | | | 12:00 AM | | procedure are in the | | | | PDT | | results section. | + +--------+ + + + documented in this encounter Results PROCEDURE NOTE (03/06/2019 5:38 PM PDT)X-RAY KNEE 2 VIEWS RIGHT (03/06/2019 2:01 PM PDT) + + | Specimen | + + | | + + + + + | Narrative | Performed At | + + + | EXAM: KNEE 2 VIEWS RIGHT HISTORY: Postop COMPARISON: | [facility] | | 02/21/2019 FINDINGS: Interval postsurgical changes of an ACL | RADIOLOGY VOICE | | reconstruction. The hardware is intact and situated in near-anatomic | RECOGNITION 2 | | alignment. There is no acute fracture. There are expected | | | postoperative changes within the soft tissues overlying the knee. | | | IMPRESSION: No immediate postoperative complication status post | | | ACL reconstruction. I have personally reviewed the images and, if | | | necessary, edited the report. I agree with the report as now | | | presented. Final signature: Glenroy Wagoner MD 03/06/2019 | | | 2:04 PM Preliminary: Glenroy Wagoner MD Dictation | | | initiated: Glenroy Wagoner MD 03/06/2019 2:04 PM | | + + + + + | Procedure Note | + + | Service Account, Radiant Res In Interface - 03/06/2019 2:05 PM PDT EXAM: KNEE 2 | | VIEWS RIGHT HISTORY: Postop COMPARISON: 02/21/2019 FINDINGS: Interval postsurgical | | changes of an ACL reconstruction. The hardware is intact and situated in near-anatomic | | alignment. There is no acute fracture. There are expected postoperative changes within | | the soft tissues overlying the knee. IMPRESSION: No immediate postoperative | | complication status post ACL reconstruction. I have personally reviewed the images and, | | if necessary, edited the report. I agree with the report as now presented. Final | | signature: Glenroy Wagoner MD 03/06/2019 2:04 PM Preliminary: Glenroy Wagoner MD | | Dictation initiated: Glenroy Wagoner MD 03/06/2019 2:04 PM | | | |There are expected postoperative changes within the soft tissues overlying the knee. | | | |IMPRESSION: | | | |No immediate postoperative complication status post ACL reconstruction. | | | |I have personally reviewed the images and, if necessary, edited the report. I agree with e report as now presented. | | | |Final signature: Glenroy Wagoner MD 03/06/2019 2:04 PM | |Preliminary: Glenroy Wagoner MD | |Dictation initiated: Glenroy Wagoner MD 03/06/2019 2:04 PM | + + + +---------+ + + | Performing | Address | City/State/Zipcode | Phone Number | | Organization | | | | + +---------+ + + | [facility] | | | | | VOICE RECOGNITION 2 | | | | + +---------+ + + INTRAPROCEDURE IMAGING (03/06/2019 7:50 AM PDT) + + | Specimen | + + | | + + + + + | Narrative | Performed At | + + + | See admission or procedure notes for details of any intraprocedure | [facility] | | images obtained. | [facility] | + + + + +---------+ + + | Performing | Address | City/State/Zipcode | Phone Number | | Organization | | | | + +---------+ + + | [facility] | | | | + +---------+ + + CARDIOLOGY (03/06/2019 12:00 AM PDT) + + + | Narrative | Performed At | + + + | | | + + + documented in this encounter Visit Diagnoses Not on filedocumented in this encounter Administered Medications + +--------+ + +------+------+ | Medication Order | MAR | Action | Dose | Rate | Site | | | Action | Date | | | | + +--------+ + +------+------+ | acetaminophen (TYLENOL) tablet | Given | 03/06/20 | 1,000 mg | | | | 1,000 mg 1,000 mg, oral, | | 19 8:10 | | | | | PREPROCEDURE ONCE, 1 dose, | | AM PDT | | | | | Starting 03/06/19 at 0749, | | | | | | | Until Tue03/06/19 at 0810 | | | | | | + +--------+ + +------+------+ + +---+ | | | + +---+ | acetaminophen (TYLENOL) tablet | | | 1 dose, Starting Tue03/06/19 at | | | 0751, Until Tue03/06/19 at 0810 | | + +---+ | | | + +---+ + +-------+ +--------+---+---+ | celecoxib (CELEBREX) capsule | Given | 03/06/20 | 400 mg | | | | 400 mg 400 mg, oral, | | 19 8:10 | | | | | PREPROCEDURE ONCE, 1 dose, | | AM PDT | | | | | Starting Tue03/06/19 at 0749, | | | | | | | Until Tue03/06/19 at 0810 | | | | | | + +-------+ +--------+---+---+ + +---+ | | | + +---+ | celecoxib (CELEBREX) capsule 1 | | | dose, Starting Tue03/06/19 at | | | 0751, Until Tue03/06/19 at 0810 | | + +---+ | | | + +---+ + +-------+ + +---+ + | EPI 1:1000-LR injection | Given | 03/06/20 | 5,001 mL | | Surgical | | INTRAPROCEDURE PRN, Starting Tue | | 19 12:59 | | | Site | | 03/06/19 at 1150, Until Tue | | PM PDT | | | | | 03/06/19 at 1330 | | | | | | + +-------+ + +---+ + +-------+ +---------+---+ + | Given | 03/06/20 | 10,001 | | Surgical | | | 19 11:50 | mL | | Site | | | AM PDT | | | | +-------+ +---------+---+ + + +---+ | | | + +---+ | fentaNYL (SUBLIMAZE) injection | | | 25-50 mcg 25-50 mcg, | | | intravenous, POSTPROCEDURE PRN, 8 | | | doses, Starting 03/06/19 at | | | 1309, Until 03/06/19 at 2339, | | | severe pain while in Phase I | | | Recovery | | + +---+ | | | + +---+ | HYDROmorphone (DILAUDID) | | | injection 0.2-0.5 mg 0.2-0.5 mg, | | | intravenous, POSTPROCEDURE PRN, | | | Starting 03/06/19 at 1309, | | | Until e 03/06/19 at 2339, | | | moderate pain while in Phase I | | | Recovery | | + +---+ | | | + +---+ + + + +-------+-------+---+ | lactated ringers IV 10 mL/hr, | Rate/Dos | 03/06/20 | 999 | 999 | | | intravenous, PROCEDURE | e Change | 19 4:15 | mL/hr | mL/hr | | | CONTINUOUS, Starting 03/06/19 | | PM PDT | | | | | at 0800, Until 03/06/19 at | | | | | | | 2339 | | | | | | + + + +-------+-------+---+ + + +---+---+---+ | given by anesthesiology | 03/06/20 | | | | | | 19 1:19 | | | | | | PM PDT | | | | + + +---+---+---+ | given by anesthesiology | 03/06/20 | | | | | | 19 1:08 | | | | | | PM PDT | | | | + + +---+---+---+ + +---+ | | | + +---+ | lactated ringers IV 500 mL, | | | intravenous, POSTPROCEDURE PRN, 1 | | | dose, Starting 03/06/19 at | | | 1309, Until 03/06/19 at 2339, | | | nausea/vomiting due to | | | dehydration | | + +---+ | | | + +---+ | lactated ringers IV 500 mL, | | | intravenous, POSTPROCEDURE PRN, 1 | | | dose, Starting 03/06/19 at | | | 1309, Until 03/06/19 at 2339, | | | systolic blood pressure less | | | than 80 mmHg. 1st line | | + +---+ | | | + +---+ | lidocaine (XYLOCAINE) 10 mg/mL | | | (1 %) injection subcutaneous, | | | PREPROCEDURE PRN, Starting Tue | | | 03/06/19 at 0749, Until Tue | | | 03/06/19 at 2339, IV start | | + +---+ | | | + +---+ | naloxone (NARCAN) injection | | | intravenous, POSTPROCEDURE PRN, | | | Starting 03/06/19 at 1309, | | | Until 03/06/19 at 2339, | | | hypopnea | | + +---+ | | | + +---+ | ondansetron (ZOFRAN) injection | | | 4 mg 4 mg, intravenous, | | | POSTPROCEDURE PRN, 1 dose, | | | Starting 03/06/19 at 1309, | | | Until 03/06/19 at 2339, | | | nausea/vomiting (greater than 6 | | | hours post-operatively) | | + +---+ | | | + +---+ | ondansetron (ZOFRAN) injection | | | 4 mg 4 mg, intravenous, | | | POSTPROCEDURE PRN, 1 dose, | | | Starting 03/06/19 at 1309, | | | Until 03/06/19 at 2339, | | | nausea/vomiting, 2nd line | | + +---+ | | | + +---+ | promethazine (PHENERGAN) | | | injection 6.25-12.5 mg 6.25-12.5 | | | mg, intravenous, POSTPROCEDURE | | | PRN, 1 dose, Starting Tue | | | 03/06/19 at 1309, Until Tue | | | 03/06/19 at 2339, | | | nausea/vomiting, 1st line | | + +---+ | | | + +---+ documented in this encounter
--- OUTSIDE RECORDS SUMMARY | ~2019-09-25 | XMS | Encounter Summary ---
Demographics + + + | Address | [address] | | | [place] [address] | + + + | Home Phone | | + + + | Preferred Language | Unknown | + + + | Marital Status | Single | + + + | Yazidism Affiliation | NRP | + + + | Race | Black or | + + + | Ethnic Group | Not or | + + + Author + + + | Author | [facility] | + + + | Organization | [facility] | + + + | Address | Unknown | + + + | Phone | Unavailable | + + + Support + + +---------+ + | Name | Relationship | Address | Phone | + + +---------+ + | Shyam Mcdonald | ECON | Unknown | | + + +---------+ + Care Team Providers + +------+ + | Care Printed Forms Proofreader Name | Role | Phone | + +------+ + | No Pcp Per Patient | PCP | Unavailable | + +------+ + Encounter Details +--------+ + + + + | Date | Type | Department | Care Team | Description | +--------+ + + + + | 02/05/ | Procedure | Diagnostic Imaging | | | | 2018 | Pass | Services at [facility] | | | | | | [address] | | | | | | [address] | | | | | | [facility] | | | | | | [place], [place] | | | | | | [address] | | | | | | [phone] | | | +--------+ + + + [...]
--- OUTSIDE RECORDS SUMMARY | ~2019-09-25 | XMS | Encounter Summary ---
Demographics + + + | Address | [address] | | | [place] [address] | + + + | Home Phone | | + + + | Preferred Language | Unknown | + + + | Marital Status | Single | + + + | Oriental Orthodox Affiliation | NRP | + + + [...] Team Providers + +------+ + | Care Medical Radiation Therapist Name | Role | Phone | + +------+ + | No Pcp Per Patient | PCP | Unavailable | + +------+ + Encounter Details +--------+--------+ + + + | Date | Type | Department | Care Team | Description | +--------+--------+ + + + | 08/01/ | Travel | | | | | 2020 | | | | | +--------+--------+ + [...] recent travel history available. | + + + + + + | COVID-19 Exposure | Response | Date Recorded | + + + + | In the last month, have you been in contact | No / Unsure | 08/02/2019 5:45 PM | | with someone who was confirmed or | | PDT | | suspected to have Coronavirus / COVID-19? | | | + + + + documented as of this encounter Plan of Treatment Not on filedocumented as of this encounter Visit Diagnoses Not on filedocumented in this encounter"
--- OUTSIDE RECORDS SUMMARY | ~2019-09-25 | XMS | Encounter Summary ---
Demographics + + + | Address | [address] | | | [place] [address] | + + + | Home Phone | | + + + | Preferred Language | Unknown | + + + | Marital Status | Single | + + + | Religion Affiliation | NRP | + + + [...] Team Providers + +------+ + | Care Elevator Repairer Name | Role | Phone | + +------+ + | No Pcp Per Patient | PCP | Unavailable | + +------+ + Encounter Details +--------+--------+ + + + | Date | Type | Department | Care Team | Description | +--------+--------+ + + + | 03/28/ | Travel | | | | | [...]
--- OUTSIDE RECORDS SUMMARY | ~2019-09-25 | XMS | Encounter Summary ---
Demographics + + + | Address | [address] | | | [place] [address] | + + + | Home Phone | | + + + | Preferred Language | Unknown | + + + | Marital Status | Single | + + + | Druze Affiliation | NRP | + + + [...] Team Providers + +------+ + | Care Publication Distributor Name | Role | Phone | + +------+ + | No Pcp Per Patient | PCP | Unavailable | + +------+ + Encounter Details +--------+--------+ + + + | Date | Type | Department | Care Team | Description | +--------+--------+ + + + | 04/16/ | Travel | | | | | [...]
--- OUTSIDE RECORDS SUMMARY | ~2019-09-25 | XMS | Encounter Summary ---
Demographics + + + | Address | [address] | | | [place] [address] | + + + | Home Phone | | + + + | Preferred Language | Unknown | + + + | Marital Status | Single | + + + | Jehovah'S Witness Affiliation | NRP | + + + | Race | Black or | + + + | Ethnic Group | Not or | + + + Author + + + | Author | [facility] | + + + | Organization | [facility] | + + + | Address | Unknown | + + + | Phone | Unavailable | + + + Support + + +---------+ + | Name | Relationship | Address | Phone | + + +---------+ + | Shyam Mcdonald | ECON | Unknown | | + + +---------+ + Care Team Providers + +------+ + | Care Activities Concierge Name | Role | Phone | + [...] | | | | anterior | MD [address] | [address] | | | | | cruciate | [address] | | | | | ligament of | [address] | Research | | | | | right knee, | [place], [place] | [place] | | | | | initial | [address] | [place], [place] | | | | | encounter | Phone: | [phone] | | | | | Procedures | [phone] | Phone: | | | | | MRI KNEE | Fax: | [phone] | | | | | RIGHT WO | [phone] | Fax: | | | | | CONTRAST MO | | [phone] | | | | | MRI LOWER | | | | | | | EXTREM JT, | | | | | | | W/O CONTRAST | | | +--------+--------+ + + + + Reason for Visit Diagnostic Testing (Urgent) +--------+--------+ + + + + | Status | Reason | Specialty | Diagnoses / | Referred By | Referred To | | | | | Procedures | Contact | Contact | +--------+--------+ + + + + | Closed | | Radiology | Diagnoses | [place], | [facility] | | | | | Rupture of | David [place]iz, | [address] | | | | | anterior | MD [address] | [address] | | | | | cruciate | [address] [place] | | | | | ligament of | [address] | Research | | | | | right knee, | [facility] | | | | | initial | [address] | [place], [place] | | | | | encounter | Phone: | [phone] | | | | | Procedures | [phone] | Phone: | | | | | MRI KNEE | Fax: | [phone] | | | | | RIGHT WO | [phone] | Fax: | | | | | CONTRAST [place] | | [phone] | | | | | MRI LOWER | | | | | | | EXTREM JT, | | | | | | | W/O CONTRAST | | | +--------+--------+ + + + + Encounter Details +--------+ + + + + | Date | Type | Department | Care Team | Description | +--------+ + + + + | 02/17/ | Hospital | Diagnostic Imaging | David Louie, | | | 2019 | Encounter | Services at [facility] | [address] | | | | | [address] | [address] | | | | | [place] [address] | [place], [place] | | | | | [facility] | [address] | | | | | [place], [place] | [phone] | | | | | [address] | | | | | | [phone] | | | +--------+ + + + [...] + + + | Blood Pressure | - | - | | + + + + + | Pulse | - | - | | + + + + + | Temperature | - | - | | + + + + + | Respiratory Rate | - | - | | + + + + + | Oxygen Saturation | - | - | | + + + + + | Inhaled Oxygen | - | - | | | Concentration | | | | + + + + + | Weight | 72.6 kg (160 lb) | 02/17/2019 5:25 PM | | | | | PDT | | + + + + + | Height | - | - | | + + + + + | Body Mass Index | - | - | | + + + + + documented in this encounter Plan of Treatment Not on filedocumented as of this encounter Procedures + +--------+ + + + | Procedure Name | Priori | Date/Time | Associated Diagnosis | Comments | | | ty | | | | + +--------+ + + + | MRI KNEE RIGHT WO | Urgent | 02/17/2019 | Rupture of | Results for this | | CONTRAST | | 5:55 PM | anterior cruciate | procedure are in the | | | | PDT | ligament of right | results section. | | | | | knee, initial | | | | | | encounter | | + +--------+ + + + documented in this encounter Results MRI KNEE RIGHT WO [...] Note | + + | Service Account, [employer] Limited Res In Interface - 02/19/2019 4:22 PM PDT EXAM: MRI KNEE | | RIGHT WO CONTRAST HISTORY: Suspected ACL tear, also positive [place]. [employer] athlete | | COMPARISON: Right knee [...] cruciate ligament of right knee, initial encounter | + + documented in this encounter"
--- OUTSIDE RECORDS SUMMARY | ~2019-09-25 | XMS | Encounter Summary ---
Demographics + + + | Address | [address] | | | [place] [address] | + + + | Home Phone | | + + + | Preferred Language | Unknown | + + + | Marital Status | Single | + + + | Scientology Affiliation | NRP | + + + | Race | Black or | + + + | Ethnic Group | Not or | + + + Author + + + | Author | [facility] | + + + | Organization | [facility] | + + + | Address | Unknown | + + + | Phone | Unavailable | + + + Support + + +---------+ + | Name | Relationship | Address | Phone | + + +---------+ + | Shyam Mcdonald | ECON | Unknown | | + + +---------+ + Care Team Providers + +------+ + | Care Verifier Name | Role | Phone | + +------+ + | No Pcp Per Patient | PCP | Unavailable | + +------+ + Reason for Referral Physical Therapy (Routine) + +--------+ + + + + | Status | Reason | Specialty | Diagnoses / | Referred By | Referred To | | | | | Procedures | Contact | Contact | + +--------+ + + + + | Authorized | | Physical | Diagnoses | Carlitos, | [facility] | | | | Therapy | Rupture of | Miroslava | [address] | | | | | anterior | MD Jet [address] | | | | | cruciate | [address] | Mailcode: | | | | | ligament of | [place], [place] | [facility] | | | | | right knee, | [address] | for Health | | | | | initial | Phone: | and Healing, | | | | | encounter | [phone] | Building 1, | | | | | Procedures | Fax: | [address] Floor | | | | | PHYSICAL | [phone] | [facility] [place] | | | | | THERAPY | | [address] | | | | | REFERRAL | | Phone: | | | | | | | [phone] | | | | | | | Fax: | | | | | | | [phone] | + +--------+ + + + + PROC - Outpatient Surgery (Routine) +--------+--------+ + + + + | Status | Reason | Specialty | Diagnoses / | Referred By | Referred To | | | | | Procedures | Contact | Contact | +--------+--------+ + + + + | Closed | | Orthopedics | Diagnoses | [facility] | Carlitos, | | | | | Rupture of | Epic Dept | Miroslava M, | | | | | anterior | | MD [address] | | | | | cruciate | | [address] | | | | | ligament of | | [place], [place] | | | | | right knee, | | [address] | | | | | initial | | Phone: | | | | | encounter | | [phone] | | | | | Other tear | | Fax: | | | | | of medial | | [phone] | | | | | meniscus, | | | | | | | current | | | | | | | injury, | | | | | | | right knee, | | | | | | | initial | | | | | | | encounter | | | | | | | Procedures | | | | | | | REQUEST TO | | | | | | | SURGERY | | | | | | | CRATE OPENER | | | | | | | [place] KNEE | | | | | | | SCOPE,AID | | | | | | | ANT CRUCIATE | | | | | | | REPAIR [place] | | | | | | | REMV TENDON | | | | | | | FOR GRAFT | | | | | | | [place] KNEE | | | | | | | SCOPE,MED [place] | | | | | | | LAT MENIS | | | | | | | REPAIR [place] | | | | | | | ARTHROTOMY,O | | | | | | | PEN REPAIR | | | | | | | MENISCUS | | | +--------+--------+ + + + + Reason for Visit + + + | Reason | Comments | + + + | Pre-Admission | | + + + Encounter Details +--------+ + + + + | Date | Type | Department | Care Team | Description | +--------+ + + + + | 02/21/ | PreAdmit | Orthopaedics | Miroslava Urbina | Pre-Admission | | 2019 | Orders | [facility] at [place] | MD Jet [address] | | | | | for Health and | Ave [place], [place] | | | | | Healing [address] | [address] | | | | | Ave Mailcode: | [phone] | | | | | [facility] | | | | | | Health and Healing, | | | | | | [facility] | | | | | | Floor [place], [place] | | | | | | [address] | | | | | | [phone] | | | +--------+ + + + [...] filedocumented as of this encounter Visit Diagnoses + + | Diagnosis | + + | Rupture of anterior cruciate ligament of right knee, initial encounter - Primary | + + documented in this encounter"
--- OUTSIDE RECORDS SUMMARY | ~2019-09-25 | XMS | Encounter Summary ---
Demographics + + + | Address | [address] | | | [place] [address] | + + + | Home Phone | | + + + | Preferred Language | Unknown | + + + | Marital Status | Single | + + + | Orthodox Affiliation | NRP | + + [...] Team Providers + +------+ + | Care Brazer Crawler Torch Name | Role | Phone | + +------+ + | No Pcp Per Patient | PCP | Unavailable | + +------+ + Encounter Details +--------+--------+ + + + | Date | Type | Department | Care Team | Description | +--------+--------+ + + + | 02/05/ | Travel | | | | | [...]
--- OUTSIDE RECORDS SUMMARY | ~2019-09-25 | XMS | Encounter Summary ---
Demographics + + + | Address | [address] | | | [place] [address] | + + + | Home Phone | | + + + | Preferred Language | Unknown | + + + | Marital Status | Single | + + + | Lutheran Affiliation | NRP | + + + | Race | Black or | + + + | Ethnic Group | Not or | + + + Author + + + | Author | [facility] [employer] [facility] | + + + | Organization | [facility] | + + + | Address | Unknown | + + + | Phone | Unavailable | + + + Support + + +---------+ + | Name | Relationship | Address | Phone | + + +---------+ + | Shyam Mcdonald | ECON | Unknown | | + + +---------+ + Care Team Providers + +------+ + | Care Dentist Attendant Name | Role | Phone | + +------+ + | No Pcp Per Patient | PCP | Unavailable | + +------+ + Encounter Details +--------+ + + + + | Date | Type | Department | Care Team | Description | +--------+ + + + + | 06/07/ | Documentati | [facility] | David Louie, | | | 2020 | on | Medicine at [facility] [address] | [address] | | | | | [place] | [address] | | | | | [place], [place] | [place], [place] | | | | | [address] | [address] | | | | | [phone] | [phone] | | | | | | | | +--------+ + [...] + | Diagnosis | + + | Sleep initiation dysfunction - Primary Insomnia, unspecified | + + documented in this encounter"
--- OUTSIDE RECORDS SUMMARY | ~2019-09-25 | XMS | Encounter Summary ---
Demographics + + + | Address | [address] | | | [place] [address] | + + + | Home Phone | | + + + | Preferred Language | Unknown | + + + | Marital Status | Single | + + + | Temple Affiliation | NRP | + + + | Race | Black or | + + + | Ethnic Group | Not or | + + + Author + + + | Author | [facility] [employer] [facility] | + + + | Organization | [facility] [facility] | + + + | Address | Unknown | + + + | Phone | Unavailable | + + + Support + + +---------+ + | Name | Relationship | Address | Phone | + + +---------+ + | Shyam Mcdonald | ECON | Unknown | | + + +---------+ + Care Team Providers + +------+ + | Care Import Manager Name | Role | Phone | [...] | | | | right knee, | [address] | for Health | | | | | initial | Phone: | and Healing, | | | | | encounter | [phone] | Building 1, | | | | | Procedures | Fax: | [address] Floor | | | | | PHYSICAL | [phone] | [facility] [place] | | | | | THERAPY | | [address] | | | | | REFERRAL | | Phone: | | | | | | | [phone] | | | | | | | Fax: | | | | | | | [phone] | + +--------+ + + + + [...] | | | ligament of | | [place], [place] | | | | | right knee, | | [address] | | | | | initial | | Phone: | | | | | encounter | | [phone] | | | | | Other tear | | Fax: | | | | | of medial | | [phone] | | | | | meniscus, | [...] | | | | | | | NATIONAL INVESTIGATIVE PRODUCER | | | | | | | [place] KNEE | | | | | | | SCOPE,AID | | | | | | | ANT CRUCIATE | | | | | | | REPAIR [place] | | | | | | | REMV TENDON | | | | | | | FOR GRAFT | | | | | | | [place] KNEE | | | | | | | SCOPE,MED [place] | | | | | | | LAT MENIS | | | | | | | REPAIR [place] | | | | | | | [...] | 2019 | Orders | [facility] at [place] | MD Jet [address] | | | | | for Health and | Ave [place], [place] | | | | | Healing [address] | [address] | | | | | Ave Mailcode: | [phone] | | | | | [facility] | | | | | | Health and Healing, | | | | | | [facility] | | | | | | Floor [place], [place] | | | | | | [address] | | | | | | [phone] | | | +--------+ + + + [...]
--- OUTSIDE RECORDS SUMMARY | ~2019-09-25 | XMS | Encounter Summary ---
Demographics + + + | Address | [address] | | | [place] [address] | + + + | Home Phone | | + + + | Preferred Language | Unknown | + + + | Marital Status | Single | + + + | Roman Catholic Affiliation | NRP | + + [...] Team Providers + +------+ + | Care Presiding Steward Name | Role | Phone | + +------+ + | No Pcp Per Patient | PCP | Unavailable | + +------+ + Encounter Details +--------+--------+ + + + | Date | Type | Department | Care Team | Description | +--------+--------+ + + + | 04/11/ | Travel | | | | | [...]
--- OUTSIDE RECORDS SUMMARY | ~2019-09-25 | XMS | Encounter Summary ---
Demographics + + + | Address | [address] | | | [place] [address] | + + + | Home Phone | | + + + | Preferred Language | Unknown | + + + | Marital Status | Single | + + + | Alevism Affiliation | NRP | + + + | Race | Black or | + + + | Ethnic Group | Not or | + + + Author + + + | Author | [facility] [employer] [facility] | + + + | Organization | [facility] [facility] | + + + | Address | Unknown | + + + | Phone | Unavailable | + + + Support + + +---------+ + | Name | Relationship | Address | Phone | + + +---------+ + | Shyam Mcdonald | ECON | Unknown | | + + +---------+ + Care Team Providers + +------+ + | Care Tractor Crane Operator Name | Role | Phone | + +------+ + | No Pcp Per Patient | PCP | Unavailable | + +------+ + Encounter Details +--------+ + + + + | Date | Type | Department | Care Team | Description | +--------+ + + + + | 03/06/ | Procedure | [facility] | | | | 2019 | Pass | [place] [facility] | | | | | | and Healing Surgery | | | | | | Center Admitting | | | | | | Desk Located on the | | | | | | 4th floor [address] | | | | | | [address] [place], | | | | | | [place] [address] | | | +--------+ + + + [...]
--- OUTSIDE RECORDS SUMMARY | ~2019-09-25 | XMS | Encounter Summary ---
Demographics + + + | Address | [address] | | | [place] [address] | + + + | Home Phone | | + + + | Preferred Language | Unknown | + + + | Marital Status | Single | + + + | Restorationism Affiliation | NRP | + + + | Race | Black or | + + + | Ethnic Group | Not or | + + + Author + + + | Author | [facility] | + + + | Organization | [facility] | + + + | Address | Unknown | + + + | Phone | Unavailable | + + + Support + + +---------+ + | Name | Relationship | Address | Phone | + + +---------+ + | Shyam Mcdonald | ECON | Unknown | | + + +---------+ + Care Team Providers + +------+ + | Care Pull Out Operator Name | Role | Phone | + +------+ + | No Pcp Per Patient | PCP | Unavailable | + +------+ + Reason for Visit Physical Therapy (Routine) + +--------+ + + [...] | | | | right knee, | [address] | for Health | | | | | initial | Phone: | and Healing, | | | | | encounter | [phone] | Building 1, | | | | | Procedures | Fax: | [address] Floor | | | | | PHYSICAL | [phone] | [facility] [place] | | | | | THERAPY | | [address] | | | | | REFERRAL | | Phone: | | | | | | | [phone] | | | | | | | Fax: | | | | | | | [phone] | + +--------+ + + + + Encounter Details +--------+---------+ + + + | Date | Type | Department | Care Team | Description | +--------+---------+ + + + | 03/14/ | Office | [facility] | Jhon Roach, | Rupture of anterior | | 2019 | Visit | Therapy Services at | PT [address] | cruciate ligament of | | | | [facility] | [place] [address] | right knee, | | | | [address] | [phone] | subsequent encounter | | | | Mailcode: [facility] | | (Primary Dx) | | | | [place] [facility] | | | | | | and Healing, | | | | | | Building [address], [address] | | | | | | Floor [place], [place] | | | | | | [address] | | | | | | [phone] | | | +--------+---------+ + + + [...] documented as of this encounter Progress Notes DocGiacomojaye Buchanan, PT - 03/14/2019 12:15 PM PDTFormatting of this note might be different fr om the original. Insurance: Payor: [facility] / Plan: [facility] / Product Type: PPO / Non-Medicare [facility] PHYSICAL THERAPY EVALUATION No past medical history on file. No past surgical history on file. Current Outpatient Medications: acetaminophen 500 mg oral tablet, Take 2 tablets by mouth t hree times daily as needed (mild to moderate pain). Do not take with alcohol., Disp: 100 tab let, Rfl: 0 ondansetron ODT 8 mg oral tablet,disintegrating, Dissolve 1 tablet on tongue and swallow ev yury eight hours as needed (nausea)., Disp: 10 tablet, Rfl: 0 oxyCODONE (immediate release) 5 mg oral tablet, Take 1 tablet by mouth every three hours as needed for moderate pain or severe pain., Disp: 40 tablet, Rfl: 0 senna 8.6 mg oral tablet, Take 1 tablet by mouth once daily. Take while taking oxycodone to prevent constipation., Disp: 20 tablet, Rfl: 0 Previous physical therapy treatment or alternative treatments for this condition includes: none. Results of previous treatment: N/A. Concurrent medical treatment: AT in [facility] . POST-OP KNEE SUBJECTIVE: History of Presenting Problem: Arnie Mcdonald is a 24 y.o. male who is post-op Post Op Dx: Right knee ACL tear; small undersurface crack of posterior horn medial meniscus, left in pl jhon Procedure: Right knee arthroscopy with ACL reconstruction using patellar tendon autograft 03/06/19 Plan: WBAT locked in extension until return of quad function. ROM as tolerated: emphasis on full extension within first 2 weeks. Patellar mobilizations, straight leg raise in brace, side leg raise. Dressing change in 3 days; ok to shower at that time. Do not soak or scrub wound. Daily ASA 81 mg x 3 weeks starting POD #1. Oxycodone and Zofran prn. Return to clinic in 2 weeks for wound check. Pt reports calf pain, has contact physician who ordered US for today. Pt also reports that biological father had a PE within the last 3 months. Pt has been icing and game ready Has been participating in rehab intermittently Prior/concurrent treatment: rehab in training room. Med Hx: Arnie has no past medical history on file. Surgical Hx: Arnie has no past surgical history on file. Meds: Current Outpatient Medications: acetaminophen 500 mg oral tablet, Take 2 tablets by m outh three times daily as needed (mild to moderate pain). Do not take with alcohol., Disp: 1 00 tablet, Rfl: 0 ondansetron ODT 8 mg oral tablet,disintegrating, Dissolve 1 tablet on tongue and swallow ev yury eight hours as needed (nausea)., Disp: 10 tablet, Rfl: 0 oxyCODONE (immediate release) 5 mg oral tablet, Take 1 tablet by mouth every three hours as needed for moderate pain or severe pain., Disp: 40 tablet, Rfl: 0 senna 8.6 mg oral tablet, Take 1 tablet by mouth once daily. 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 Equipment at home: Crutches. Arnie's Goals: return to [employer] [facility] athletetics OBJECTIVE: Posture/alignment/observation: wearing drop down knee brace locked in extension zipline in place, well healing incision without signs of infection Gait: wearing KI, decreased gait velocity, guarded, using 1 crutch Knee ROM: 0-0-82 in supine Able to achieve 115 deg in sitting EOB Patella Mobility: good, not painful Quad set: poor SLR: significant lag ~30 deg Neuro Screen: see following details: pt reports calf pain and off sensation in the R foot which he attributes to swelling . Circumferential measureements performed 10 cm distal to tib tubercle right lower extremity 33 cm left lower extremity 34 cm TREATMENT TODAY: PT: Evaluation therapeutic exercises, gait training. Review of post-op precautions. Review of post-op objectives: swelling control, good quad set, full knee extension and knee flexion. Reviewed acute post-op exercises: Ankle Pumps to control swelling Patella Mobilizations (medial<> lateral and superior<>inferior) to avoid scaring Calf and Hamstring stretch with strap to avoid stiffnes (4f15-80 sec; 3x/day) Quad set for muscle activation SLR only if no extensor lag Heel Prop to aide with extension ROM (3-5 min 3x/day) Prone Hang to aide with extension ROM (1-2 min 3x/day) Heel Slides to assist with knee flexion ROM Supine wall slides to assist with knee flexion ROM Added: NMES for quad x 10 min, 10 sec on, 10 sec off with coordinated quad set Gait training for quad control and TKE in stance phase, knee flexion in swing, no brace, CG A and bilateral crutches ASSESSMENT: Arnie is post-op R ACL repair with patellar tendon autograft 03/06/19. Pt with calf pain, has doppler scheduled for today. Pt with family history of blood clots/PE and meets Well's clinical prediction rule. Patient's pain is well controlled and is following his post-op precautions. Arnie is participating in his post-op exercise program. Arnie require s services that can be safely and effectively performed only by a qualified therapist to add ress the following problems and achieve the following goals: Problems: Increased swelling Decreased knee ROM Decreased quadraceps activation Abnormal gait pattern Pain Rehab Potential: Excellent. SHORT-TERM GOALS, discussed with patient, due in [...] Stationary cycle as appropriate Modalities as needed See topics above to identify problem areas and goals Personal factors/Comorbidities: Musculoskeletal , ROM, Neuromuscular, Balance, Gait/Locomo tion, Transfers/Transitions and Integumentary Communication: No noted deficits, Psychosocial : Physically demanding profession/recreation, High 3+ Body structures & functions, Activity limitations, participation restrictions: Musculoskele jaycob , Posture, ROM, Neuromuscular, Balance, Gait/Locomotion, Transfers/Transitions and Integ umentary Work/school, Community, Social, Recreational sport and Transportation limitations H igh - 4 or more elements Stability of condition: Signs and symptoms progressing in atypical course, High - Unstable Clinical decision making: High level of skill needed to determine plan of care and implemen t changes accordingly High - Unpredictable clinical presentation Complexity: High - 14462 The patient requires services that can be safely and effectively performed only by a qualif ied therapist to address the aforementioned and highlighted problems and goals. Goals discussed and agreed upon with patient and/or family. Individual cultural and social needs addressed. Rehab Potential: Good, if Arnie carries through with home exercise program. This note is to serve as the discharge summary if the patient fails to attend further Physi bina Therapy appointments or contact the therapist regarding any change in their status. JHON ROACH PT [facility] AT [facility] Scheduled Appointment time: 12:15 PM The patient was seen for a total of 45 minutes of treatment time. 45 minutes was in direct contact care as described above and on completed flow sheets. Treatment Interventions duration in minutes: Procedure:Physical Therapy Evaluation, Therape utic Exercise 15 min and Gait Training 5 min Authorization information for first visit and progress reports Procedure Codes: Re-evaluation 96716, Therapeutic Exercise 08666, Manual Therapy 50853, Th erapeutic Activities 56386, Neuromuscular Reeducation 67745 and Gait Training 40058 Minutes per session: 45 Total number of visits: 24 Frequency: 2x/wk x 4 weeks, then 1x/wk x 20 weeks Duration: 8 months (must exceed or match Medicare service period request) Service period from: 03/14/2019 to: 02/22/20 (Medicare must match duration or be no greater than 90 days if proposed duration is greater than 3 months) Start of care: 03/14/2019 Referral information Authorizing Provider: MIROSLAVA REYNA [[id number]] Onset/Referral Date: 02/21/19 Primary/Referral Diagnosis: S83.511D Rupture of anterior cruciate ligament of right knee, subsequent encounter Next progress report 05/13/2019 Insurance: Payor: [employer] / Plan: [employer] / Product Type: PPO / Number visits authorized: - Number visits used: 1 Outcome Measure 03/14/2019 Lower Extremity Functional Scale [...] | + +--------+ + + + | [place] [facility] | Routin | 03/14/2019 | Rupture of | | | EXERCISES | e | 1:00 PM | anterior cruciate | | | [...]
--- OUTSIDE RECORDS SUMMARY | ~2019-09-25 | XMS | Encounter Summary ---
Demographics + + + | Address | [address] | | | [place] [address] | + + + | Home Phone [...] Author | [facility] [employer] [facility] | + + + | Organization | [facility] [employer] [facility] | + + + | Address | Unknown | + + + | Phone | Unavailable | + + + Support + + +---------+ + | Name | Relationship | Address | Phone | + + +---------+ + | Shyam Mcdonald | ECON | Unknown | | + + +---------+ + Care Team Providers + +------+ + | Care Data Processing Specialist Name | Role | Phone | [...] | | | | right knee, | [address] | for Health | | | | | initial | Phone: | and Healing, | | | | | encounter | [phone] | Building 1, | | | | | Procedures | Fax: | [address] Floor | | | | | PHYSICAL | [phone] | [facility] [place] | | | | | THERAPY | | [address] | | | | | REFERRAL | | Phone: | | | | | | | [phone] | | | | | | | Fax: | | | | | | | [phone] | + +--------+ + + + + Encounter Details +--------+---------+ + + + | Date | Type | Department | Care Team | Description | +--------+---------+ + + + | 04/11/ | Office | [facility] | [place], | Rupture of anterior | | 2019 | Visit | Therapy Services at | Kyle, PT [address] | cruciate ligament of | | | | [facility] | [address] | right knee, | | | | [address] | [place], [place] | subsequent encounter | | | | Mailcode: [id number] | [phone] | (Primary Dx) | | | | [facility] | | | | | | and Healing, | | | | | | [address], [address] | | | | | | Floor [facility] [place] | | | | | | [address] | | | | | | [phone] | | | +--------+---------+ + + + [...] documented as of this encounter Progress Notes Tom Kyle, PT - 04/11/2019 11:00 AM PST Insurance: Payor: [facility] / Plan: [employer]isan [employer] / Product Type: PPO / Non-Medicare Procedure: [...] 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 Extension during short arc quad is still bothersom e. Otherwise feeling good and performing exercises regularly OBJECTIVE: Knee ROM: Decreased passive knee flexion Therapeutic Exercise Squat - 45 deg - cuing for hip drop and even weight shift Wall ball squat - 90 deg depth - green band for resisted TKE - 2x10 Lateral step down - 2x10 - cuing o avoid hip drop Resisted side stepping - purple at ankles - 2x20' Single limb balance - bosu - 2x20 sec - cuing for tripod foot short arc quad - double leg - 20# - 2x fatigue Single leg - 10# - 1x fatigue Current home exercise program: sidelying hip lifts with weight Straight leg raise with cuff weight Lateral step down Balance on foam or BOSU BOSU mini squats Side steps with band around tops of knees Plank series Shuttle Wall slides - ball optional Squats - 60 deg depth due to weight shift short arc quad - light weight unilateral or double leg Edema management: legs on wall dailly ASSESSMENT: Arnie is post-op R ACL repair with patellar tendon autograft 03/06/19, post-op course compl icated by DVT Good tolerance for functional quad activation and isolated quad activation today without pa tellofemoral pain Minimal hip drop noted with lateral step down and significant weight shift with deeper squa t Appropriate for return to lateral step down and increasing depth of squatting without weigh t SHORT-TERM GOALS, discussed with patient, due in [...] therapist regarding any change in their status. KYLE RAINES PT [facility] PHYSICAL THERAPY SERVICES AT [address] Mailcode: [address] [address] Scheduled Appointment time: 12:15 PM The patient [...] encounter Next progress report 05/13/2019 Insurance: Payor: [employer]elscanYanet / Plan: JENNYLILLIAN / Product Type: PPO / Number visits authorized: - Number visits used: 5 Outcome Measure 03/14/2019 Lower Extremity Functional Scale Score: 19 Percent of Functional Level: 23.75 % Percent of Disability/Impairment (MCID decrease of 11%): 76.25 % . documented in this encounter Plan of Treatment Not on filedocumented as of this encounter Procedures + +--------+ + + + | Procedure Name | Priori | Date/Time | Associated Diagnosis | Comments | | | ty | | | | + +--------+ + + + | AL THERAPEUTIC | Routin | 04/11/2019 | Rupture of | | | EXERCISES | e | 2:12 PM | anterior cruciate | | | [...]
--- OUTSIDE RECORDS SUMMARY | ~2019-09-25 | XMS | Encounter Summary ---
Demographics + + + | Address | [address] | | | [place] [address] | + + + | Home Phone | | + + + | Preferred Language | Unknown | + + + | Marital Status | Single | + + + | Mu-Ism Affiliation | NRP | + + + | Race | Black or | + + + | Ethnic Group | Not or | + + + Author + + + | Author | [facility] | + + + | Organization | [facility] | + + + | Address | Unknown | + + + | Phone | Unavailable | + + + Support + + +---------+ + | Name | Relationship | Address | Phone | + + +---------+ + | Shyam Mcdonald | ECON | Unknown | | + + +---------+ + Care Team Providers + +------+ + | Care Building Maintenance Repairer Name | Role | Phone | [...] | | | | right knee, | [address] | for Health | | | | | initial | Phone: | and Healing, | | | | | encounter | [phone] | Building 1, | | | | | Procedures | Fax: | [address] Floor | | | | | PHYSICAL | [phone] | [facility] [place] | | | | | THERAPY | | [address] | | | | | REFERRAL | | Phone: | | | | | | | [phone] | | | | | | | Fax: | | | | | | | [phone] | + +--------+ + + + + Encounter Details +--------+---------+ + + + | Date | Type | Department | Care Team | Description | +--------+---------+ + + + | 03/21/ | Office | [facility] | Jhon Roach, | Rupture of anterior | | 2019 | Visit | Therapy Services at | PT [address] | cruciate ligament of | | | | [facility] | [place] [address] | right knee, | | | | [address] | [phone] | subsequent encounter | | | | Mailcode: [id number] | | (Primary Dx) | | | | [place] [facility] | | | | | | and Healing, | | | | | | [address], [address] | | | | | | Floor [place], [place] | | | | | | [address] | | | | | | [phone] | | | +--------+---------+ + + + [...] documented as of this encounter Progress Notes Jhon Roach Chanel, PT - 03/21/2019 12:15 PM PDTFormatting of this note might be different fr om the original. Insurance: Payor: [employer] [employer] / Plan: HackMyPic / Product Type: PPO / Non-Medicare Procedure: [...] Goals: return to Div 1 athletetics SUBJECTIVE 03/21/2019 Calf is feeling better Knee pain is well managed In TR: bike, NMES, gait, leg lifts OBJECTIVE: Posture/alignment/observation: wearing drop down knee brace unlocked zipline in place, well healing incision without signs of infection Mod edema Gait: wearing KI, decreased gait velocity, guarded, no AD Knee ROM: 1-0-98 in supine Able to achieve 110 deg in sitting EOB Patella Mobility: good, not painful Quad set: fair+ SLR: minimal lag with fatigue/distraction Therapeutic Exercise Stand TKE with green TB x 10 sec hold x 10 reps Hip ABD with green TB x 15 reps bilateral Hip flexion with green TB x 15 reps Retro walking for TKE Plank x 60 sec Inch worms x green line Shuttle 80-0 with 2 bands x 20 reps Mini squats small range x 20 reps SAQ 30-0 deg with focus on TKE x 20 reps Game Ready Intermittent pneumatic compression with elevation x15 min Current home exercise program: Ankle Pumps to control swelling Patella Mobilizations (medial<> lateral and superior<>inferior) to avoid scaring Calf and Hamstring stretch with strap to avoid stiffnes (6h49-09 sec; 3x/day) Quad set for muscle activation SLR only if no extensor lag Heel Prop to aide with extension ROM (3-5 min 3x/day) Prone Hang to aide with extension ROM (1-2 min 3x/day) Heel Slides to assist with knee flexion ROM Supine wall slides to assist with knee flexion ROM ASSESSMENT: Arnie is post-op R ACL repair with patellar tendon autograft 03/06/19, post-op course compl icated by DVT Improvements in strength, gait and ROM since last tx Focus of today's tx on achieving TKE and quad control Pt presenting with small extensor lag with fatigue or distraction, better with cueing SHORT-TERM GOALS, discussed with patient, due in [...] regarding any change in their status. JHON ROACH, PT [facility] PHYSICAL THERAPY SERVICES AT [address] Mailcode: [address] [address] Scheduled Appointment time: 12:15 PM The patient was seen for a total of 60 minutes of treatment time. 45 minutes was [...] encounter Next progress report 05/13/2019 Insurance: Payor: JENNYESTmobYanet / Plan: [facility] / Product Type: PPO / Number visits authorized: - Number visits used: 2 Outcome Measure 03/14/2019 Lower Extremity Functional Scale [...] | + +--------+ + + + | MA THERAPEUTIC | Routin | 03/21/2019 | Rupture of | | | EXERCISES | e | 1:09 PM | anterior cruciate | | | [...]
--- OUTSIDE RECORDS SUMMARY | ~2019-09-25 | XMS | Encounter Summary ---
Demographics + + + | Address | [address] | | | [place] [address] | + + + | Home Phone [...] Author + + + | Author | [facility] | + + + | Organization | [facility] [employer] [facility] | + + + | Address | Unknown | + + + | Phone | Unavailable | + + + Support + + +---------+ + | Name | Relationship | Address | Phone | + + +---------+ + | Shyam Mcdonald | ECON | Unknown | | + + +---------+ + Care Team Providers + +------+ + | Care Press Feeder Broomcorn Name | Role | Phone | + [...] | | 2019 | | [facility] | [address] | | | | | for Health and | Frances Castillo [place], | | | | | Healing [address] | [place] [address] | | | | | [address] Mailcode: | [phone] | | | | | [address] [facility] | | | | | | Health and Healing, | | | | | | | | | | | | [place], [place] | | | | | | [address] | | | | | | [phone] | | | +--------+ + + + [...]
--- OUTSIDE RECORDS SUMMARY | ~2019-09-25 | XMS | Encounter Summary ---
Demographics + + + | Address | [address] | | | [place] [address] | + + + | Home Phone [...] + + | Author | [facility] | + + + | Organization | [facility] | + + + | Address | Unknown | + + + | Phone | Unavailable | + + + Support + + +---------+ + | Name | Relationship | Address | Phone | + + +---------+ + | Shyam Mcdonald | ECON | Unknown | | + + +---------+ + Care Team Providers + +------+ + | Care Model Dresser Name | Role | Phone | + +------+ + | No Pcp Per Patient | PCP | Unavailable | + +------+ + Encounter Details +--------+ + + + + | Date | Type | Department | Care Team | Description | +--------+ + + + + | 03/06/ | Procedure | [facility] | | | | 2019 | Pass | [facility] | | | | | | and Healing Surgery | | | | | | Center Admitting | | | | | | Desk Located on the | | | | | | 4th floor [address] | | | | | | [place], | | | | | | [place] [address] | | | +--------+ + + + [...]
--- OUTSIDE RECORDS SUMMARY | ~2019-09-25 | XMS | Encounter Summary ---
Demographics + + + | Address | [address] | | | [place] [address] | + + + | Home Phone [...] | Author | [facility] [email or web address] [facility] | + + + | Organization | [facility] | + + + | Address | Unknown | + + + | Phone | Unavailable | + + + Support + + +---------+ + | Name | Relationship | Address | Phone | + + +---------+ + | Shyam Mcdonald | ECON | Unknown | | + + +---------+ + Care Team Providers + +------+ + | Care Operation Specialist Name | Role | Phone | + +------+ + | No Pcp Per Patient | PCP | Unavailable | + +------+ + Encounter Details +--------+ + + + + | Date | Type | Department | Care Team | Description | +--------+ + + + + | 08/07/ | MyChart | [facility] | Monae Goel, | Coronavirus | | 2020 | Encounter | Therapy Services at | PT [address] | | | | | [facility] | [facility] [address] [facility] [address] | | | | | [address] | [facility] [place] | | | | | Mailcode: CH3P | [phone] | | | | | [facility] | | | | | | and Healing, | | | | | | [address] | | | | | | Floor [facility] [place] | | | | | | [address] | | | | | | [phone] | | | +--------+ + + + [...]
--- OUTSIDE RECORDS SUMMARY | ~2019-09-25 | XMS | Encounter Summary ---
Demographics + + + | Address | [address] | | | [place] [address] | + + + | Home Phone | | + + + | Preferred Language | Unknown | + + + | Marital Status | Single | + + + | Evangelical Affiliation | NRP | + + + | Race | Black or | + + + | Ethnic Group | Not or | + + + Author + + + | Author | [facility] [employer] [facility] | + + + | Organization | [facility] | + + + | Address | Unknown | + + + | Phone | Unavailable | + + + Support + + +---------+ + | Name | Relationship | Address | Phone | + + +---------+ + | Shyam Mcdonald | ECON | Unknown | | + + +---------+ + Care Team Providers + +------+ + | Care Swimming Pool Installer Name | Role | Phone | + [...] | | | | right knee, | [address] | for Health | | | | | initial | Phone: | and Healing, | | | | | encounter | [phone] | Building 1, | | | | | Procedures | Fax: | [address] Floor | | | | | PHYSICAL | [phone] | [facility] [place] | | | | | THERAPY | | [address] | | | | | REFERRAL | | Phone: | | | | | | | [phone] | | | | | | | Fax: | | | | | | | [phone] | + +--------+ + + + + [...] cruciate ligament of | | | | [facility] | [address] | right knee, | | | | [address] | [place], [place] | subsequent encounter | | | | Mailcode: CH3P | [phone] | (Primary Dx) | | | | [facility] | | | | | | and Healing, | | | | | | [address], [address] | | | | | | Floor [facility] [place] | | | | | | [address] | | | | | | [phone] | | | +--------+---------+ + + + [...] - 04/11/2019 11:00 AM PST Insurance: Pay[facility] / Plan: GraffitiE / Product Type: PPO / Non-Medicare Procedure: [...] change in their status. KYLE RAINES PT [facility] PHYSICAL THERAPY SERVICES AT [address] Mailcode: [address] [address] Scheduled Appointment time: 12:15 PM [...] encounter Next progress report 05/13/2019 Insurance: Payor: JENNYZanAquaYanet / Plan: JENNYLILLIAN / Product Type: PPO [...] | + +--------+ + + + | [place] [facility] | Routin | 04/11/2019 | Rupture [...]
--- OUTSIDE RECORDS SUMMARY | ~2019-09-25 | XMS | Encounter Summary ---
Demographics + + + | Address | [address] | | | [place] [address] | + + + | Home Phone | | + + + | Preferred Language | Unknown | + + + | Marital Status | Single | + + + | Caodaism Affiliation | NRP | + + + | Race | Black or | + + + | Ethnic Group | Not or | + + + Author + + + | Author | [facility] [employer] [facility] | + + + | Organization | [facility] [employer] [facility] | + + + | Address | Unknown | + + + | Phone | Unavailable | + + + Support + + +---------+ + | Name | Relationship | Address | Phone | + + +---------+ + | Shyam Mcdonald | ECON | Unknown | | + + +---------+ + Care Team Providers + +------+ + | Care Baby Stroller Rental Clerk Name | Role | Phone | + [...] | | | | ligament of | [place], [place] | [address] | | | | | right knee, | [address] | for Health | | | | | initial | Phone: | and Healing, | | | | | encounter | [phone] | Building 1, | | | | | Procedures | Fax: | [address] Floor | | | | | PHYSICAL | [phone] | [place], [place] | | | | | THERAPY | | [address] | | | | | REFERRAL | | Phone: | | | | | | | [phone] | | | | | | | Fax: | | | | | | | [phone] | + +--------+ + + + + Encounter Details +--------+---------+ + + + | Date | Type | Department | Care Team | Description | +--------+---------+ + + + | 06/14/ | Office | [facility] Physical | Monae Ureña, | Rupture of anterior | | 2019 | Visit | Therapy Services at | PT [address] [facility] | cruciate ligament of | | | | [facility] | [facility] | right knee, | | | | [address] | [facility] [place] [place] | subsequent encounter | | | | Mailcode: CH3P | [phone] | (Primary Dx) | | | | [facility] | | | | | | and Healing, | | | | | | [address], [address] | | | | | | Floor [place], [place] | | | | | | [address] | | | | | | [phone] | | | +--------+---------+ + + + [...] documented as of this encounter Progress Notes AmandoMonae, PT - 06/14/2019 6:30 PM PSTFormatting of this note might be different fr om the original. 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 SUBJECTIVE: 14 weeks s/p procedure + weeks Doing very well Feels good overall OBJECTIVE: Biodex Isokinetic Testin06/14/2019 Involved side: Right Biodex Testing: (Goal: No > 5% difference) Extension at 60 deg/sec Flexion at 60 deg/sec Extension at 180 deg/sec Flexion at 180 deg/sec Extension at 300 deg/sec Flexion at 300 deg/sec Left Right Deficit Left Right Deficit Left Right Deficit Left Right Deficit Left Right Deficit Left Right Deficit Total Work 745 535 -27 353 493 +39 973 740 -23.9 356 626 +75 979 758 -22.5 260 561.0 +115 (Goal: No > 5% from standard deviation) Pk Torq/Body Wt Extension at 60 deg/sec Flexion at 60 deg/sec Extension at 180 deg/sec Flexion at 180 deg/sec Extension at 300 deg/sec Flexion at 300 deg/sec Within standard deviation goal? Yes/No NO -- YES -- NO -- NO -- NO -- YES -- TREATMENT: TherEx: Biodex Walk jo min fast walk, 1 min jog for 4 sets; 4x a week then progressing to 3 min fast walk, 2 mi n jog 4 sets, 4x a week and progressing Therapeutic Exercise/Home program DL knee extension DL [...] 03/06/19, post-op course compl icated by DVT Abnormal testing in hamstring across the board. Discussed this in-depth with Arnie, as it a s likely setup error by lamonte. However, quadriceps strength across all three parameters acc eptable for initiating gentle walk/jog. He is slightly behind in 60 deg/second, but his unin volved leg is near the top of standard deviation for his weight-matched norms. So at this ti me, it seems appropriate for gentle jogging. Initiated program and discussed not ramping too fast. He is not cleared for sprinting, cutting, change of direction, or any sport activity. Is eager to return to sport; needed [...] change in their status. MONAE UREÑA, PT [facility] PHYSICAL THERAPY SERVICES AT [address] Mailcode: [address] [address] Scheduled Appointment time: 6:30 PM The patient was seen for a total of 30 minutes of treatment time. 30 minutes was in direct contact care as described above. This includes flowsheets and patient instructions as utiliz ed. Treatment Interventions duration in minutes: Procedure:Therapeutic Exercise 30 min Frequency: 2x/wk x 4 weeks, then [...] encounter Next progress report 05/13/2019 Insurance: Payor: PrivateCore / Plan: PrivateCore / Product Type: PPO / Number visits authorized: - Number visits used: 8 Outcome Measure 03/14/2019 Lower Extremity Functional Scale [...] | + +--------+ + + + | [place] THERAPEUTIC | Routin | 06/19/2019 | Rupture of | | | EXERCISES | e | 7:44 AM | anterior cruciate | | | [...]
--- OUTSIDE RECORDS SUMMARY | ~2019-09-25 | XMS | Encounter Summary ---
Demographics + + + | Address | [address] | | | [place] [address] | + + + | Home Phone | | + + + | Preferred Language | Unknown | + + + | Marital Status | Single | + + + | Pentecostal Affiliation | NRP | + + + [...] Team Providers + +------+ + | Care Sack Sorter Name | Role | Phone | + +------+ + | No Pcp Per Patient | PCP | Unavailable | + +------+ + Encounter Details +--------+--------+ + + + | Date | Type | Department | Care Team | Description | +--------+--------+ + + + | 03/14/ | Travel | | | | | [...]
--- OUTSIDE RECORDS SUMMARY | ~2019-09-25 | XMS | Encounter Summary ---
Demographics + + + | Address | [address] | | | [place] [address] | + + + | Home Phone | | + + + | Preferred Language | Unknown | + + + | Marital Status | Single | + + + | Taoism Affiliation | NRP | + + + | Race | Black or | + + + | Ethnic Group | Not or | + + + Author + + + | Author | [facility] | + + + | Organization | [facility] | [...] Team Providers + +------+ + | Care Military Lawyer Name | Role | Phone | + [...] + + + + | 03/06/ | Anesthesia | [facility] | Yeny Elias | | | 2019 | Event | [facility] | MD [place] [address] | | | | | and Healing Surgery | [address] | | | | | Center Admitting | [place], [place] | | | | | Desk Located on the | [address] | | | | | 4th floor [address] | [phone] | | | | | [place], | | | | | | [place] [address] | Chris Schaefer MD | | | | | | [address] | | | | | | [place] Cast[place], | | | | | | [place] [address] | | | | | | [phone] | | | | | | | | +--------+ + + + + Anesthesia Record + + + + + | Procedure Name | Responsible | Anesthesia Start | Anesthesia Stop Time | | | Anesthesiologist | Time | | + + + + + | RIGHT KNEE | Yeny Elias, | 03/06/19 1012 | 03/06/19 1335 | | ARTHROSCOPY WITH | MD | | | | ANTERIOR CRUCIATE | | | | | LIGAMENT | | | | | RECONSTRUCTION USING | | | | | PATELLAR TENDON | | | | | AUTOGRAFT; (Right | | | | | Knee) | | | | + + + + + +----+---+ + + | Da | T | Event | Comment | | te | i | | | | | m | | | | | e | | | +----+---+ + + | 10 | 1 | Pt. Check | Prior to anesthesia start, pt. Identified, examined, chart | | /1 | 0 | | reviewed, PARQ held, anesthetic plan made or approved by | | 5/ | 1 | | attending anesthesiologist. NPO status confirmed as appropriate | | 20 | 2 | | for procedure Preoperative evaluation: unchanged | | 19 | | | | +----+---+ + + | | 1 | An Start | | | | 0 | | | | | 1 | | | | | 2 | | | +----+---+ + + | | 1 | Block Pause | | | | 0 | | | | | 1 | | | | | 3 | | | +----+---+ + + | | 1 | Preprocedur | Pt ID confirmed, informed consent obtained, insertion site | | | 0 | e Checklist | marked, equipment available | | | 1 | | | | | 4 | | | +----+---+ + + | | 1 | Start PNB | | | | 0 | SS | | | | 1 | | | | | 7 | | | +----+---+ + + | | 1 | PNB SS Stop | | | | 0 | | | | | 2 | | | | | 0 | | | +----+---+ + + | | 1 | Eq Check | Anesthesia machine checked Equipment verified | | | 0 | | | | | 3 | | | | | 4 | | | +----+---+ + + | | 1 | An Start | | | | 0 | Data | | | | 5 | | | | | 3 | | | +----+---+ + + | | 1 | Vitals | Monitors applied Vital signs checked Patient ready for anesthesia | | | 0 | Checked | | | | 5 | | | | | 5 | | | +----+---+ + + | | 1 | SGA | | | | 1 | | | | | 0 | | | | | 1 | | | +----+---+ + + | | 1 | Ready | | | | 1 | | | | | 0 | | | | | 1 | | | +----+---+ + + | | 1 | Abx | | | | 1 | Administere | | | | 1 | d | | | | 2 | | | +----+---+ + + | | 1 | Timeout | | | | 1 | | | | | 1 | | | | | 8 | | | +----+---+ + + | | 1 | Incision | | | | 1 | | | | | 2 | | | | | 0 | | | +----+---+ + + | | 1 | SGA Removed | | | | 3 | | | | | 2 | | | | | 2 | | | +----+---+ + + | | 1 | Surgery end | | | | 3 | | | | | 2 | | | | | 6 | | | +----+---+ + + | | 1 | an stop | | | | 3 | data | | | | 2 | | | | | 9 | | | +----+---+ + + | | 1 | PACU Rpt | | | | 3 | Given | | | | 3 | | | | | 5 | | | +----+---+ + + | | 1 | Anesthesia | | | | 3 | End | | | | 3 | | | | | 5 | | | +----+---+ + + | | 1 | Post-Op | | | | 5 | Page | | | | 0 | | | | | 0 | | | +----+---+ + + +------+ | Meds | +------+ + + + | Name | Total | + + + | midazolam | 2 mg | + + + | fentaNYL | 100 mcg | + + + | bupivacaine 0.5% | 20 mL | + + + | lidocaine 2% | 70 mg | + + + | propofol (DIPRIVAN) 200 mg | 220 mg | + + + | dexamethasone | 4 mg | + + + | ondansetron | 4 mg | + + + | PHENYLEPHrine | 1,200 mcg | + + + | ceFAZolin (ANCEF) injection 2 g | 2 g | + + + | ePHEDrine | 10 mg | + + + | glycopyrrolate | 0.4 mg | + + + | dexMEDEtomidine (PRECEDEX) 400 | 15.11 mcg | | mcg in NaCl 0.9 % (NS) 100 mL (4 | | | mcg/mL) IV infusion | | + + + | PHENYLEPHrine INF (25mg/250mL) | 2,165.24 mcg | + + + | lactated ringers IV | 1,400 mL | + + + + + | Name | + + | O2 FR Avance (Total Liters) | + + | Air FR Avance (l/min) | + + | Insp Sevo | + + | Et Sevo | + + | Insp N2O % | + + | O2 Flow Rate (Total Liters) | + + + + | No blood administrations on file. | + + +--------+ + + + | Type | Details | Placement | Removal | +--------+ + + + | Incisi | 03/06/19; MD Carlitos; Right; | 03/06/19 0000 by | | | on | Midline; knee | Alicia Griffiths, | | | | | RN | | +--------+ + + + | Periph | 03/06/19; 0807; Left; Hand; 20 g; | 03/06/19 0807 by | 03/06/19 1600 by | | eral | Lidocaine; Positive; 03/06/19; | Kapil Small, | Jessie Marcelo, | | IV | 1600 | RN | RN | +--------+ + + + documented in this encounter Social History + +-------+ +--------+------+ | Tobacco [...] | + +--------+ + + + | ANE LMA | Routin | 03/06/2019 | | Results for this | | | e | 11:17 AM | | procedure are in the | | | | PDT | | results section. | + +--------+ + + + | ANE PNB SS | Routin | 03/06/2019 | | Results for this | | | e | 10:30 AM | | procedure are in the | | | | PDT | | results section. | + +--------+ + + + documented in this encounter Results SGA (03/06/2019 11:17 AM PDT) + + + | Narrative | Performed At | + + + | Clementine Eckert MD 03/06/2019 11:17 AM AIRWAY MANAGEMENT - | | | SGA Time of Placement: 03/06/2019 11:01 AM Positioning: Supine | | | Location Performed:OR OXYGENATION Patient was preoxygenated | | | Grade: Grade 0 - Ventilation by mask not attempted LMA DETAILS | | | LMA Type: Air-Q LMA Size: 4.5 - 4.5 CONFIRMATION Number of | | | Attempts: 1 Atraumatic placement Positive for EtCO2:Waveform | | | capnography Breath Sounds: Bilateral and equal NARRATIVE | | | Attending was physically present for the critical portions of the | | | procedure as described in the procedure note Attending/Authorizing | | | Provider: Yeny Elias MD Performing Provider: Clementine Leiva | | MD Babar | | + + + PNB Single Shot (03/06/2019 10:30 AM PDT) + + + | Narrative | Performed At | + + + | Chidi Xavier MD 03/06/2019 10:32 AM PNB Single Shot | | | Placement Start Time: 03/06/2019 10:17 AM Placement End Time: | | | 03/06/2019 10:20 AM Block Method: Single-Shot Block Reason: combined | | | surgical anesthesia and postop pain management Location Performed: | | | Preop The patient was identified, site verified and marked, full PARQ | | | done PROCEDURE Number of Attempts: 1 Block Type: adductor | | | canal Side: right Patient Position: Supine Monitors: EKG, | | | NIBP and SpO2 Skin Prep: Chloraprep Team Pause: Performed per policy | | | Protective Barrier: Cap, Mask, Sterile Gloves and Hand scrub | | | Patient Status: Sedated but participating Supplemental O2 given | | | TECHNOLOGY USED Technology used: Ultrasound guided | | | Ultrasound Image: Printed and placed in patients chart Needle | | | Visualization: Needle tip confirmed by hydrolocalization | | | Hydrodissection: Hydrodissection with saline/D5W Ultrasound Spread | | | Characteristics: Full spread around nerve/plexus PLACEMENT Needle | | | Type: Pajunk Son[employer]Plex Needle Size: 21 G Needle Length (cm): 9 cm | | | Paresthesia: No Blood Return on Aspiration: no blood return on | | | aspiration Medication injected in 5mL aliquots. Negative aspiration | | | confirmed before and after each aliquot. ASSESSMENT Sesory | | | Assessment: Decreased in area of block Motor Assessment: Intact | | | Complications: No apparent complications Technical Difficulty: | | | Easy Intended Analgesia: Deferred Procedure Abandoned?: No | | | NARRATIVE Attending was physically present for the critical portions | | | of the procedure as described in the procedure note | | | Attending/Authorizing Provider: Yeny Elias MD Performing | | | Provider: Chidi Xavier MD Procedure Comments: Patient was | | | awake and alert, and conversant throughout procedure. Tolerated | | | procedure well, no problems or complaints. No apparent | | | complications. | | + + + documented in this encounter Visit Diagnoses Not on filedocumented in this encounter Administered Medications + +--------+ +-------+------+------+ | Medication Order | MAR | Action | Dose | Rate | Site | | | Action | Date | | | | + +--------+ +-------+------+------+ | bupivacaine (PF) | Given | 03/06/20 | 20 mL | | | | (MARCAINE,SENSORCAINE-MPF) 0.5 % | | 19 10:20 | | | | | (5 mg/mL) injection | | AM PDT | | | | | INTRAPROCEDURE PRN, Starting Tue | | | | | | | 03/06/19 at 1020, Until Tue | | | | | | | 03/06/19 at 1329 | | | | | | + +--------+ +-------+------+------+ +---+---+ | | | +---+---+ + +-------+ +-----+---+---+ | ceFAZolin (ANCEF) injection 2 g | Given | 03/06/20 | 2 g | | | | 2 g, intravenous, PREPROCEDURE | | 19 11:12 | | | | | ONCE, 1 dose, Starting Tue | | AM PDT | | | | | 03/06/19 at 0749, Until Tue | | | | | | | 03/06/19 at 1112 | | | | | | + +-------+ +-----+---+---+ +---+---+ | | | +---+---+ + +-------+ +------+---+---+ | dexamethasone (DECADRON) | Given | 03/06/20 | 4 mg | | | | injection intravenous, | | 19 11:02 | | | | | INTRAPROCEDURE PRN, Starting Tue | | AM PDT | | | | | 03/06/19 at 1102, Until Tue | | | | | | | 03/06/19 at 1329 | | | | | | + +-------+ +------+---+---+ +---+---+ | | | +---+---+ + + + + +-------+---+ | dexMEDEtomidine (PRECEDEX) 400 | Rate/Dos | 03/06/20 | 0.2 | 3.52 | | | mcg in NaCl 0.9 % (NS) 100 mL (4 | e Change | 19 12:55 | mcg/kg/h | mL/hr | | | mcg/mL) IV infusion | | PM PDT | r | | | | INTRAPROCEDURE CONTINUOUS PRN, | | | | | | | Starting 03/06/19 at 1131, | | | | | | | Until 03/06/19 at 1329 | | | | | | + + + + +-------+---+ + + + +-------+---+ | Rate/Dose Change | 03/06/20 | 0.4 | 7.03 | | | | 19 12:46 | mcg/kg/h | mL/hr | | | | PM PDT | r | | | + + + +-------+---+ | Restarted | 03/06/20 | 0.2 | 3.52 | | | | 19 12:40 | mcg/kg/h | mL/hr | | | | PM PDT | r | | | + + + +-------+---+ +---+---+ | | | +---+---+ + +-------+ +------+---+---+ | ePHEDrine injection | Given | 03/06/20 | 5 mg | | | | INTRAPROCEDURE PRN, Starting Tue | | 19 11:25 | | | | | 03/06/19 at 1121, Until Tue | | AM PDT | | | | | 03/06/19 at 1329 | | | | | | + +-------+ +------+---+---+ +-------+ +------+---+---+ | Given | 03/06/20 | 5 mg | | | | | 19 11:21 | | | | | | AM PDT | | | | +-------+ +------+---+---+ +---+---+ | | | +---+---+ + +-------+ +--------+---+---+ | fentaNYL (SUBLIMAZE) injection | Given | 03/06/20 | 25 mcg | | | | INTRAPROCEDURE PRN, Starting Tue | | 19 12:23 | | | | | 03/06/19 at 1012, Until Tue | | PM PDT | | | | | 03/06/19 at 1329 | | | | | | + +-------+ +--------+---+---+ +-------+ +--------+---+---+ | Given | 03/06/20 | 25 mcg | | | | | 19 12:02 | | | | | | PM PDT | | | | +-------+ +--------+---+---+ | Given | 03/06/20 | 25 mcg | | | | | 19 11:31 | | | | | | AM PDT | | | | +-------+ +--------+---+---+ +---+---+ | | | +---+---+ + +-------+ +--------+---+---+ | glycopyrrolate (PF) (SHARATH) | Given | 03/06/20 | 0.4 mg | | | | injection soln INTRAPROCEDURE | | 19 11:25 | | | | | PRN, Starting Tue03/06/19 at | | AM PDT | | | | | 1125, Until Tue03/06/19 at 1329 | | | | | | + +-------+ +--------+---+---+ +---+---+ | | | +---+---+ + + + +-------+-------+---+ | lactated ringers [...] | | | | + + +---+---+---+ +---+---+ | | | +---+---+ + +-------+ +-------+---+---+ | lidocaine PF (XYLOCAINE MPF) 20 | Given | 03/06/20 | 70 mg | | | | mg/mL (2 %) injection | | 19 11:01 | | | | | INTRAPROCEDURE PRN, Starting Tue | | AM PDT | | | | | 03/06/19 at 1101, Until Tue | | | | | | | 03/06/19 at 1329 | | | | | | + +-------+ +-------+---+---+ +---+---+ | | | +---+---+ + +-------+ +------+---+---+ | midazolam (PF) (VERSED) | Given | 03/06/20 | 2 mg | | | | injection INTRAPROCEDURE PRN, | | 19 10:12 | | | | | Starting 03/06/19 at 1012, | | AM PDT | | | | | Until 03/06/19 at 1329 | | | | | | + +-------+ +------+---+---+ +---+---+ | | | +---+---+ + +-------+ +------+---+---+ | ondansetron (ZOFRAN) injection | Given | 03/06/20 | 4 mg | | | | intravenous, INTRAPROCEDURE PRN, | | 19 1:09 | | | | | Starting Tue03/06/19 at 1309, | | PM PDT | | | | | Until Tue03/06/19 at 1329 | | | | | | + +-------+ +------+---+---+ +---+---+ | | | +---+---+ + +-------+ +---------+---+---+ | PHENYLEPHrine 100 mcg/mL IV | Given | 03/06/20 | 100 mcg | | | | syringe INTRAPROCEDURE PRN, | | 19 1:10 | | | | | Starting Tue03/06/19 at 1110, | | PM PDT | | | | | Until Tue03/06/19 at 1329 | | | | | | + +-------+ +---------+---+---+ +-------+ +---------+---+---+ | Given | 03/06/20 | 100 mcg | | | | | 19 12:59 | | | | | | PM PDT | | | | +-------+ +---------+---+---+ | Given | 03/06/20 | 100 mcg | | | | | 19 12:37 | | | | | | PM PDT | | | | +-------+ +---------+---+---+ +---+---+ | | | +---+---+ + + + + +--------+---+ | PHENYLEPHrine 25 mg/250 mL (0.1 | Rate/Dos | 03/06/20 | 0.3 | 12.65 | | | mg/mL) IV infusion (ADC) | e Change | 19 1:12 | mcg/kg/m | mL/hr | | | intravenous, INTRAPROCEDURE | | PM PDT | in | | | | CONTINUOUS PRN, Starting Tue | | | | | | | 03/06/19 at 1136, Until Tue | | | | | | | 03/06/19 at 1329 | | | | | | + + + + +--------+---+ + + + +-------+---+ | Restarted | 03/06/20 | 0.2 | 8.44 | | | | 19 12:55 | mcg/kg/m | mL/hr | | | | PM PDT | in | | | + + + +-------+---+ | Rate/Dose Change | 03/06/20 | 0.2 | 8.44 | | | | 19 12:40 | mcg/kg/m | mL/hr | | | | PM PDT | in | | | + + + +-------+---+ +---+---+ | | | +---+---+ + +-------+ +-------+---+---+ | propofol (DIPRIVAN) 200 mg | Bolus | 03/06/20 | 20 mg | | | | intravenous, INTRAPROCEDURE | | 19 11:31 | | | | | CONTINUOUS PRN, Starting Tue | | AM PDT | | | | | 03/06/19 at 1101, Until Tue | | | | | | | 03/06/19 at 1329 | | | | | | + +-------+ +-------+---+---+ +---------+ +--------+---+---+ | New Bag | 03/06/20 | 200 mg | | | | | 19 11:01 | | | | | | AM PDT | | | | +---------+ +--------+---+---+ +---+---+ | | | +---+---+ documented in this encounter"
--- OUTSIDE RECORDS SUMMARY | ~2019-09-25 | XMS | Encounter Summary ---
Demographics + + + | Address | [address] | | | [place] [address] | + + + | Home Phone [...] Team Providers + +------+ + | Care Poultry Picker Name | Role | Phone | + +------+ + | No Pcp Per Patient | PCP | Unavailable | + +------+ + Encounter Details +--------+--------+ + + + | Date | Type | Department | Care Team | Description | +--------+--------+ + + + | 05/28/ | Travel | | | | | [...]
--- OUTSIDE RECORDS SUMMARY | ~2019-09-25 | XMS | Encounter Summary ---
Demographics + + + | Address | [address] | | | [place] [address] | + + + | Home Phone | | + + + | Preferred Language | Unknown | + + + | Marital Status | Single | + + + | Jain Affiliation | NRP | + + + | Race | Black or | + + + | Ethnic Group | Not or | + + + Author + + + | Author | [facility] [employer] [facility] | + + + | Organization | [facility] [employer] [facility] | + + + | Address | Unknown | + + + | Phone | Unavailable | + + + Support + + +---------+ + | Name | Relationship | Address | Phone | + + +---------+ + | Shyam Mcdonald | ECON | Unknown | | + + +---------+ + Care Team Providers + +------+ + | Care Store Grocery Merchandiser Name | Role | Phone | + +------+ + | No Pcp Per Patient | PCP | Unavailable | + +------+ + Encounter Details +--------+ + + + + | Date | Type | Department | Care Team | Description | +--------+ + + + + | 05/28/ | Hospital | Radiology/Imaging | Miroslava Urbina | | | 2020 | Encounter | Lab at [facility] [address] | [address] | | | | | Jaxson Jason Mailcode: | [place], [place] | | | | | [facility] | [address] | | | | | [facility], | [phone] | | | | | | | | | | | Floor [place], [place] | | | | | | [address] | | | | | | [phone] | | | +--------+ + + + [...] +--------+ + + + | X-RAY KNEE 4 VIEWS | Routin | 05/28/2019 | Right knee pain, | Results for this | | RIGHT 3 VIEWS LEFT | e | 8:08 AM | unspecified | procedure are in the | | ORTHO COMBO | | PST | chronicity | results section. | + +--------+ + + + documented in this encounter Results X-RAY KNEE 4 VIEWS RIGHT 3 VIEWS LEFT ORTHO COMBO (05/28/2019 8:08 AM PST) + + | Specimen | + + | | + + + + + | Narrative | Performed At | + + + | EXAM: KNEE 4 VWS RIGHT 3 VWS LEFT ORTHO COMBO HISTORY: pain | [facility] | | COMPARISON: Right knee radiographs 03/06/2019 FINDINGS: Right | RADIOLOGY VOICE | | ACL patellar tendon graft reconstruction is again noted without | RECOGNITION 2 | | evidence of complication. Resolving postsurgical changes. No acute | | | fracture, malalignment or osseous destruction about the right knee. | | | The joint spaces are maintained. No significant joint effusion. No | | | acute fracture, malalignment or osseous destruction about the left | | | knee. The joint spaces are maintained. The soft tissues are normal. | | | IMPRESSION: Intact right ACL reconstruction without evidence of | | | interval complication. Unremarkable left knee radiographs. I | | | have personally reviewed the images and, if necessary, edited the | | | report. I agree with the report as now presented. Final | | | signature: Glenroy Wagoner MD 05/28/2019 9:03 AM Preliminary: | | | Martin Hall MD Dictation initiated: Martin Hall MD | | | 05/28/2019 8:27 AM | | + + + + + | Procedure Note | + + | Service Account, [employer] Res In Interface - 05/28/2019 9:04 AM PST EXAM: KNEE 4 VWS | | RIGHT 3 VWS LEFT ORTHO COMBO HISTORY: pain COMPARISON: Right knee radiographs 03/06/2019 | | FINDINGS: Right ACL patellar tendon graft reconstruction is again noted without | | evidence of complication. Resolving postsurgical changes. No acute fracture, | | malalignment or osseous destruction about the right knee. The joint spaces are | | maintained. No significant joint effusion. No acute fracture, malalignment or osseous | | destruction about the left knee. The joint spaces are maintained. The soft tissues are | | normal. IMPRESSION: Intact right ACL reconstruction without evidence of interval | | complication. Unremarkable left knee radiographs. I have personally reviewed the images | | and, if necessary, edited the report. I agree with the report as now presented. Final | | signature: Glenroy Wagoner MD 05/28/2019 9:03 AM Preliminary: Martin Hall MD | | Dictation initiated: Martin Hall MD 05/28/2019 8:27 AM | | | |IMPRESSION: | | | |Intact right ACL reconstruction without evidence of interval complication. | | | |Unremarkable left knee radiographs. | | | |I have personally reviewed the images and, if necessary, edited the report. I agree with th e report as now presented. | | | |Final signature: Glenroy Wagoner MD 05/28/2019 9:03 AM | |Preliminary: Martin Hall MD | |Dictation initiated: Martin Hall MD 05/28/2019 8:27 AM | + + + +---------+ + + | Performing | Address | City/State/Zipcode | Phone Number | | Organization | | | | + +---------+ + + | [facility] | | | | | VOICE RECOGNITION 2 | | | | + +---------+ + + documented in this encounter Visit Diagnoses + + | Diagnosis | + + | Right knee pain, unspecified chronicity | + + documented in this encounter"
--- OUTSIDE RECORDS SUMMARY | ~2019-09-25 | XMS | Encounter Summary ---
Demographics + + + | Address | [address] | | | [place] [address] | + + + | Home Phone | | + + + | Preferred Language | Unknown | + + + | Marital Status | Single | + + + | Church Affiliation | NRP | + + + [...] Team Providers + +------+ + | Care Spreader Operator Name | Role | Phone | + +------+ + | No Pcp Per Patient | PCP | Unavailable | + +------+ + Encounter Details +--------+--------+ + + + | Date | Type | Department | Care Team | Description | +--------+--------+ + + + | 04/25/ | Travel | | | | | [...]
--- OUTSIDE RECORDS SUMMARY | ~2019-09-25 | XMS | Encounter Summary ---
Demographics + + + | Address | [address] | | | [place] [address] | + + + | Home Phone [...] Team Providers + +------+ + | Care Masonry Instructor Name | Role | Phone | + +------+ + | No Pcp Per Patient | PCP | Unavailable | + +------+ + Encounter Details +--------+--------+ + + + | Date | Type | Department | Care Team | Description | +--------+--------+ + + + | 07/17/ | Travel [...]
--- OUTSIDE RECORDS SUMMARY | ~2019-09-25 | XMS | Encounter Summary ---
Demographics + + + | Address | [address] | | | [place] [address] | + + + | Home Phone | | + + + | Preferred Language | Unknown | + + + | Marital Status | Single | + + + | Nondenominational Affiliation | NRP | + + + | Race | Black or | + + + | Ethnic Group | Not or | + + + Author + + + | Author | [facility] | + + + | Organization | [facility] | + + + | Address | Unknown | + + + | Phone | Unavailable | + + + Support + + +---------+ + | Name | Relationship | Address | Phone | + + +---------+ + | Shyam Mcdonald | ECON | Unknown | | + + +---------+ + Care Team Providers + +------+ + | Care Director Script Name | Role | Phone | + [...] | | | | ligament of | [place], [place] | [address] | | | | | right knee, | [address] | for Health | | | | | initial | Phone: | and Healing, | | | | | encounter | [phone] | Building [address], | | | | | Procedures | Fax: | [address] | | | | | PHYSICAL | [phone] | [place], [place] | | | | | THERAPY | | [address] | | | | | REFERRAL | | Phone: | | | | | | | [phone] | | | | | | | Fax: | | | | | | | [phone] | + +--------+ + + + + Encounter Details +--------+---------+ + + + | Date | Type | Department | Care Team | Description | +--------+---------+ + + + | 04/16/ | Office | [facility] Physical | Monae Ureña, | Rupture of anterior | | 2019 | Visit | Therapy Services at | PT [address] [facility] | cruciate ligament of | | | | [facility] | [facility] | right knee, | | | | [address] | [facility] [place] | subsequent encounter | | | | Mailcode: [id number] | [phone] | (Primary Dx) | | | | [facility] | | | | | | and Healing, | | | | | | [address] | | | | | | Floor [place], [place] | | | | | | [address] | | | | | | [phone] | | | +--------+---------+ + + + [...] Instructions Patient Instructions Monae Ureña, PT - 04/16/2019 9:45 AM PSTMini lunge in place 3x10 (focus on pushing through front heel) Sit to stand biasing R leg (left leg is on tip toe) 3x10 No plopping, don't let knee come in, no pain (if pain go higher surface) Sideways step down on stair 3x10 Short arc quad (short kick outs with ankle weight) 3x10 Sit up vs using a smaller foam roller Side steps with band 3x10 Balance on BOSU 3 x1 min If you have time... -Shuttle leg press -Hip kicks (banded diagonal kick backs, and straight kick backs) documented in this encounter Progress Notes Monae Ureña, PT - 04/16/2019 9:45 AM PSTFormatting of this note might be different fr om the original. Insurance: Payor: [facility] / Plan: [facility] / Product Type: O / Non-Medicare Procedure: Right knee arthroscopy with [...] Goals: return to Div 1 athletetics SUBJECTIVE: Saw Dr. Urbina and reports its going well VERY overwhelmed with 20 credits, track, rehab, and student government OBJECTIVE: DL squat: shift at about 60 deg Therapeutic Exercise SAQ with less of a bolster and ankel weight 3x10 Sit to stand biasing 1 leg at high box, slow lower Mini lunge in place 3x10 Current home exercise program: Lunges in place(modified range) 3x10 Sit to stand biasing R 3x10 Lateral step dwon 3x10 SAQ with weight 3x10 Band walks (monster, latearl) 3x10 Balance on BOSU 3x1 min If added time: Shuttle leg press 3x10 Hip abduction/extension with band 3x10 ASSESSMENT: Arnie is post-op R ACL repair with patellar tendon autograft 03/06/19, post-op course compl icated by DVT Progressing well with quad activation with focus today on biasing surgical leg to improve q uad fatigue Needs mod verbal cueing to prevent weight shift to uninvolved or valgus of knee Has lots of external stressors; focused on compacting home program focused on more efficien t fatigue Progress as able SHORT-TERM GOALS, discussed with patient, due in [...] change in their status. MONAE UREÑA, PT [facility] PHYSICAL THERAPY SERVICES AT [address] Mailcode: [address] [address] Scheduled Appointment time: 9:45 AM The patient was seen for a total of 30 minutes (patient 15 min late) of treatment time. 30 minutes was in direct contact care as described above. This includes flowsheets and patient instructions as utilized. Treatment Interventions duration in minutes: Procedure:Therapeutic Exercise [...] care: 03/14/2019 Referral information Authorizing Provider: BOBBY URBINA [[id number]] Onset/Referral Date: 02/21/19 Primary/Referral Diagnosis: S83.511D Rupture of anterior cruciate ligament of right knee, subsequent encounter Next progress report 05/13/2019 Insurance: Payor: [facility] [facility] / Plan: [employer] / Product Type: PPO / Number visits [...] | + +--------+ + + + | [facility] | Routin | 04/16/2019 | Rupture of | | | EXERCISES | e | 12:04 PM | anterior cruciate | | | [...]
--- OUTSIDE RECORDS SUMMARY | ~2019-09-25 | XMS | Encounter Summary ---
Demographics + + + | Address | [address] | | | [place] [address] | + + + | Home Phone [...] + + | Author | [facility] [facility] | + + + | Organization | [facility] | + + + | Address | Unknown | + + + | Phone | Unavailable | + + + Support + + +---------+ + | Name | Relationship | Address | Phone | + + +---------+ + | Shyam Mcdonald | ECON | Unknown | | + + +---------+ + Care Team Providers + +------+ + | Care Milking Worker Name | Role | Phone | + +------+ + | No Pcp Per Patient | PCP | Unavailable | + +------+ + Reason for Visit Consultation (Routine) + +---------+ + + + + | Status | Reason | Specialty | Diagnoses / | Referred By | Referred To | | | | | Procedures | Contact | Contact | + +---------+ + + + + | Authorized | Other | Hematology / | Diagnoses | Aaron, | Rylee, | | | | Hematology & | Right calf | Ana | MD Quirino | | | | Oncology | pain | JOVI Garcia | [address] | | | | | Procedures | [address] | | | | | CONSULT TO | [address] | [place], [place] | | | | | HEMATOLOGY / | [facility] | [address] | | | | | ONCOLOGY | [address] | Phone: | | | | | [place] NEW | Phone: | [phone] | | | | | PATIENT | [phone] | Fax: | | | | | LEVEL V SC | Fax: | [phone] | | | | | EST PATIENT | [phone] | | | | | | LEVEL V | | | + +---------+ + + + + Encounter Details +--------+---------+ + + + | Date | Type | Department | Care Team | Description | +--------+---------+ + + + | 05/28/ | Office | [facility] | Rylee, | Thrombosis (Primary | | 2020 | Visit | Clinics at S | MD Quirino [address] | Dx) | | | | [facility] | [place], | | | | | for Health and | [place] [address] | | | | | Healing [address] | [phone] | | | | | [place], [place] | | | | | | [address] | | | | | | [phone] | | | +--------+---------+ + + + [...] + + + documented in this encounter Progress Notes Quirino Bañuelos MD - 05/28/2019 2:00 PM PST Hematology Clinic Problem List Thrombosis Impression 1. Thrombosis - distal DVT s/p right ACL reconstruction. Discussed thrombotic episode was p rovoked and given this plus it being distal low rates of recurrence. He remains on rivaroxab an 20 mg once daily with good tolerance and is to complete his 3 month course of rivaroxaban in late May 2019. Guidelines from multiple societies (ACCP/BSH/KRISSY) recommend no throm bophilia testings as this will not help in guiding therapy 2. For future prophylaxis: - Surgeries: patient should have prophylaxis with intermittent compression stockings foll owed within 24 hours of surgery with prophylactic LMWH or new oral anticoagulants (unless bl eeding risk is still present) and stop when the patient is fully ambulatory or for major ort hopedic procedures 4-6 weeks. - Airplane flights: flights > 4-6 hours are associated with an increase risk of DVT and th ose > 10 are particular higher risk. For all long flights would recommend knee-high comp ression stockings 15-30 mmHg of compression at the ankle. RTC as needed. Subjective Arnie Mcdonald is a 24 year old male kindly referred by Ana Walker PA-C for e valuation of thrombosis. He underwent right knee arthroscopy with anterior cruciate ligamen t reconstruction using patellar tendon autograft on 03/06/19. Subsequently called in to repo rt symptoms of discomfort in his right calf on 03/14/19 - Venous duplex was obtained which s howed DVT in the right axial veins of the calf. Given these findings, he was started on william roxaban 15 mg BID x 21 days then xarelto 20 mg once daily with plan for a total of 90 days t reatment duration. Mr. Mcdonald presents to clinic today for initial consultation. He recalls he initially tore his ACL a few months ago playing basketball. He is almost 3 months s/p right ACL reconstruc tion surgery and remains on rivaroxaban 20 mg once daily with good tolerance - no hematochez ia, bruising, epistaxis, or hematuria. He expects to complete his 3 month course of rivaroxa ban in late May 2019. He notes some mild tingling in his RLE, but denies any pain, swell ing, or cramping. Patient reports a pain level of 0 | Pain Location: | Pain Educated? Yes | today. He had X-rays of his knees today which were reassuring - his right ACL reconstruction is in tact without evidence of interval complication and left knee is unremarkable. 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 Denies smoking or illicit substance use. Drink s alcohol infrequently. He reports family history of PE in biological father - which reporte dly developed after a long car ride. Please see scanned questionnaire for SH, FH, PMH, and ROS which I have reviewed in detail. I have reviewed the available radiology results which are notable for deep vein thrombosis in the right axial veins of the calf. No other venous thrombosis detected. The left lower ex tremity was not examined.(Venous duplex RLE 03/14/19). Current Outpatient Medications: rivaroxaban 20 mg oral tablet, Take 1 tablet by mouth once daily with breakfast. To be started once done with 15 mg dose 2x/day, Disp: 69 tablet, Rfl: 0 No Known Allergies Today's weight is 68.9 kg (152 lb). His oral temperature is 37.1 C (98.7 F). His blood pressure is 136/78 and his pulse is 54. His respiration is 18 and oxygen saturation is 98%. Gen: Appears non-toxic SHEENT: NC/AT No Scleral icterus TM clears Oral cavity clear Neck: No JVD No nodes Lungs: Good Resp movement. Clear to A&P Cor: RRR without R,G,M ABD; Soft w/o HSM, masses or tenderness EXT: No C/C/E Neuro: Intact Psy: Appropriate Imaging: VASC LAB VENOUS DUPLEX LOWER EXTREMITY RT Order: [id number] Status: Final result Visible to patient: Yes (MyChart) Dx: Right calf pain Details Reading Physician Reading Date Result Priority Jb Kemp MD 03/14/2019 Narrative & Impression Right: The duplex scanner was used to examine the deep and superficial veins of the right l ower extremity. There is occlusive thrombus in the right posterior tibial and peroneal veins. All other ve ins of the right lower extremity are patent with normal flow and responses to augmentation a nd compression maneuvers and no other thrombus is noted. The left leg common femoral vein w as examined and is patent with normal flow. Conclusions: There is deep vein thrombosis in the right axial veins of the calf. No other venous thrombosis detected. The left lower extremity was not examined. I have personally reviewed the images and, if necessary, edited the report. I agree with t he report as now presented. Specimen Collected: 03/14/19 13:47 Last Resulted: 03/14/19 14:24 X-RAY KNEE 4 VIEWS RIGHT 3 VIEWS LEFT ORTHO COMBO Order: [id number] Status: Final result Visible to patient: No (Not Released) Dx: Right knee pain, unsp ecified chronicity Details Reading Physician Reading Date Result Priority Glenroy Wagoner MD 05/28/2019 Martin Hall III, MD 05/28/2019 Narrative & Impression EXAM: KNEE 4 VWS RIGHT 3 VWS LEFT ORTHO COMBO HISTORY: pain COMPARISON: Right knee radiographs 03/06/2019 FINDINGS: Right ACL patellar tendon graft reconstruction is again noted without evidence of complicat ion. Resolving postsurgical changes. No acute fracture, malalignment or osseous destruction about the right knee. The joint spaces are maintained. No significant joint effusion. No acute fracture, malalignment or osseous destruction about the left knee. The joint space s are maintained. The soft tissues are normal. IMPRESSION: Intact right ACL reconstruction without evidence of interval complication. Unremarkable left knee radiographs. I have personally reviewed the images and, if necessary, edited the report. I agree with th johnathan report as now presented. Final signature: Glenroy Wagoner MD 05/28/2019 9:03 AM Preliminary: Martin Hall MD Dictation initiated: Martin Hall MD 05/28/2019 8:27 AM Specimen Collected: 05/28/19 08:27 Last Resulted: 05/28/19 09:03 I am Heike Rueda functioning as a scribe for Quirino Bañuelos MD at 11:36 AM on 05/28/2019 I have reviewed and verified the above scribed note of my visit with this patient as record ed by Heike Rueda. Quirino Bañuelos MD, [employer] [place] account executive sales representative, Pathology, and Pediatrics [facility] documented in this encounter Plan of Treatment Not on filedocumented as of this encounter Visit Diagnoses + + | Diagnosis | + + | Thrombosis - Primary Embolism and thrombosis of unspecified site | + + documented in this encounter"
--- OUTSIDE RECORDS SUMMARY | ~2019-09-25 | XMS | Encounter Summary ---
Demographics + + + | Address | [address] | | | [place] [address] | + + + | Home Phone | | + + + | Preferred Language | Unknown | + + + | Marital Status | Single | + + + | Hoahaoism Affiliation | NRP | + + + | Race | Black or | + + + | Ethnic Group | Not or | + + + Author + + + | Author | [facility] [employer] [facility] | + + + | Organization | [facility] [employer] [facility] | + + + | Address | Unknown | + + + | Phone | Unavailable | + + + Support + + +---------+ + | Name | Relationship | Address | Phone | + + +---------+ + | Shyam Mcdonald | ECON | Unknown | | + + +---------+ + Care Team Providers + +------+ + | Care Business Intelligence Manager Name | Role | Phone | + +------+ + | No Pcp Per Patient | PCP | Unavailable | + +------+ + Reason for Visit + + + | Reason | Comments | + + + | New patient | Right knee ACL rupture | | consultation | | + + + Benefits Check (Routine) + +--------+ + + + + | Status | Reason | Specialty | Diagnoses / | Referred By | Referred To | | | | | Procedures | Contact | Contact | + +--------+ + + + + | Authorized | | Orthopedics | Diagnoses | [facility] | [place], | | | | | right knee | Epic Dept | Miroslava Chaudhary, | | | | | ACL rupture | | [address] | | | | | | [address] | | | | | | | [place], [place] | | | | | | | [address] | | | | | | | Phone: | | | | | | | [phone] | | | | | | | Fax: | | | | | | | [phone] | + +--------+ + + + + Encounter Details +--------+---------+ + + + | Date | Type | Department | Care Team | Description | +--------+---------+ + + + | 02/21/ | Office | [facility] | Miroslava Urbina | Rupture of anterior | | 2019 | Visit | & Rehabilitation | MD Abdi Chaudh[address] | cruciate ligament of | | | | [address] | [address] [facility] [place] | right knee, initial | | | | [place] | [address] | encounter (Primary | | | | [address] | [phone] | Dx); Pain in both | | | | [phone] | | knees, unspecified | | | | | | chronicity | +--------+---------+ + + + Social History [...] Weight | 72.6 kg (160 lb) | 02/21/2019 11:10 AM | pt reported | | | | PDT | | + + + + + | Height | 180.3 cm (5' 11") | 02/21/2019 11:10 AM | | | | | PDT | | + + + + + | Body Mass Index | 22.32 | 02/21/2019 11:10 AM | | | | | PDT | | + + + + + documented in this encounter Progress Notes Miroslava Urbina MD - 02/21/2019 11:35 AM PDT Arnie Mcdonald is a 23 y.o. male who complains of right knee instability. Referred by [facility] for orthopaedic consultation and evaluation. History of Present Complaint: First noticed: last summer Result of: sudden onset while playing basketball: felt right foot slide in shoe, noted sign ificant swelling in the right knee thereafter. Has had several episodes of instability ther eafter, and intermittent swelling. I evaluated him with Dr. Louie in the [employer] training room, and we obtained an MRI and xrays to better evaluate the knee. He presents today to discuss results and options for treatment. The knee sometimes hurts when walking around, but he did a 40 minute stationary bike session yesterday and tolerated it well. Has not done much PT ye t. Location: medial and anterior right knee Pain: 5/10 on average, 5/10 during maximal activity Pain characterized as varying with activity Activity level: Intense activity (organized/competitive sporting, high-intensity gym workou ts such as competitive power lifting, elite athletics) Sport of choice: Track, cross country. Factors that alleviate pain include: physical therapy and rest. Factors that worsen pain include: walking. Symptoms include catching and giving way. Treatments for the knee joint and present condition have included: nothing specific PMH: History of bleeding or clotting disorders? No History of problems with anesthesia? No History of infection? No PSH: History reviewed. No pertinent past surgical history. FH: Reviewed and noncontributory History of bleeding or clotting disorders? No History of knee problems/arthritis? No SH: Arnie is single, student at [employer]. Lives with roommates. Tobacco: None. EtOH: Rare. Recreational drug use: None. Social History Socioeconomic History Marital status: Single Spouse name: Not on file Number of children: Not on file Years of education: Not on file Highest education level: Not on file Occupational History Not on file Social Needs Financial resource strain: Not on file Food insecurity: Worry: Not on file Inability: Not on file Transportation needs: Medical: Not on file Non-medical: Not on file Tobacco Use Smoking status: Never Smoker Smokeless tobacco: Never Used Substance and Sexual Activity Alcohol use: Not on file Drug use: Not on file Sexual activity: Not on file Lifestyle Physical activity: Days per week: Not on file Minutes per session: Not on file Stress: Not on file Relationships Social connections: Talks on phone: Not on file Gets together: Not on file Attends restoration service: Not on file Active member of club or organization: Not on file Attends meetings of clubs or organizations: Not on file Relationship status: Not on file Other Topics Concern Not on file Social History Narrative Not on file Meds: None Allergies: no known drug allergies ROS: Ten point review of systems completed, pertinent positives include: none PEx: Vital Signs: Body mass index is 22.32 kg/m. Height: Weight: Wt on (02/17/2019) 72.6 kg (160 lb) Mental Status: Alert, awake, oriented and cooperative. Respiratory: Breathing non-labored. Normal rate and socorro. Clear to auscultation with no rales, wheezes or rhonchi. Cardiovascular: Regular rate and rhythm, no murmurs, gallops or rubs. Gait: slight flexed knee on right Weightbearing:Full bilaterally Skin: clean and clear Standing Alignment: normal Feet: normal Ligamentous laxity: Thumb to forearm negative, MCP hyperextension negative, Elbow hyperex tension negative and Knee hyperextension negative Quadriceps Atrophy: none Effusion: none Motion: Right Left Passive 0 to 135 0 to 140 Palpation: Right Left Tenderness to palpation none none Jonatan No pain or click with provocative meniscal maneuvers No pain or click with provoca tive meniscal maneuvers Extensor Mechanism: Right Left Active SLR Intact, no lag Intact, no lag Crepitus negative negative J Sign negative negative Apprehension negative negative Patellar tilt (flexible?) Neutral Neutral Lateral patellar translation 2 quadrants and Solid endpoint 2 quadrants and Solid endpoint Med patellar translation 2 quadrants and Solid endpoint 2 quadrants and Solid endpoint Ligaments: Right Left Valgus 30 Symmetric with solid endpoint Symmetric with solid endpoint Varus 30 Symmetric with solid endpoint Symmetric with solid endpoint Gena 2 and B 1 and A Pivot shift not tested not tested Post Drawer Negative Negative Hip/Rotational Profile: Supine ER 60 60 Supine IR 30 30 Neurovascular/Lymph: Right Left Pulses 2+, DP and PT 2+, DP and PT Motor Motor intact to toe dorsiflexion, toe plantarflexion, ankle dorsiflexion, ankle plan tarflexion, knee extension, knee flexion, hip extension and hip flexion Motor intact to toe dorsiflexion, toe plantarflexion, ankle dorsiflexion, ankle plantarflexion, knee extension, knee flexion, hip extension and hip flexion Sensory Sensation intact to light touch throughout medial foot, 1st webspace, lateral foot , dorsal foot and grossly throughout leg and thigh Sensation intact to light touch throughou t medial foot, 1st webspace, lateral foot, dorsal foot and grossly throughout leg and thigh Edema None None Other: None Imaging: Xray (02/05/2019 and today): well-maintained joint spaces and no evidence of acute bony abno rmality MRI (02/17/2019): complete ACL rupture, lateral femoral condyle and posterolateral tibial pl ateau contusions consistent with instability event, posterior horn medial meniscus with myxo id degeneration and possible undersurface tear Assessment: All clinical information was reviewed with the patient, who expressed understa nding. All questions were answered today. Patient with complete right ACL rupture, instabi lity event, possible meniscus tear. History of "sports hernia", left side. Plan: Discussed right knee arthroscopy, ACL reconstruction using patellar tendon autograft, meniscus surgery as indicated. A PARQ session was held where I discussed the risks, benefits, and alternatives to this gabe fátima. The patient was informed that the risks include but are not limited to , infectio n, damage to nerves, vessels, bone, tendons, cartilage, muscle, post operative stiffness, th ere may be need for further surgery, and that no surgery has a guarantee. The patient had a n opportunity to get his questions answered to help understand the procedure and postoperati ve course. Consent for the surgical procedure was signed. Will plan to have athlete see Dr. Justin for sports hernia after ACL surgery. I am Micah Valiente functioning as a scribe for Miroslava Urbina MD at 11:47 AM on 9 I have reviewed and verified the above scribed note of my visit with this patient as record ed by Micah Valiente. Miroslava Urbina MD [facility] [place] Department of Orthopaedics and Rehabilitation Division of Sports Medicine documented in thi s encounter Plan of Treatment Not on filedocumented as of this encounter Results X-RAY KNEE 1 VIEWS BILATERAL (02/21/2019 11:14 AM PDT) + + | Specimen | + + | | + + + + + | Narrative | Performed At | + + + | EXAM: KNEE 1 VIEW BILATERAL HISTORY: knee pain COMPARISON: | [facility] | | February 05, 2019 FINDINGS: Limited, single [place] view | RADIOLOGY VOICE | | demonstrate no significant joint space narrowing, fracture or | RECOGNITION 2 | | malalignment. Soft tissues are normal. IMPRESSION: Limited | | | evaluation demonstrates normal knees. I have personally reviewed | | | the images and, if necessary, edited the report. I agree with the | | | report as now presented. Final signature: Anil Sommers MD | | | 02/21/2019 11:16 AM Preliminary: Anil Sommers MD Dictation | | | initiated: Anil Sommers MD 02/21/2019 11:16 AM | | + + + + + | Procedure Note | + + | Service Account, Radiant Res In Interface - 02/21/2019 11:17 AM PDT EXAM: KNEE 1 VIEW | | BILATERAL HISTORY: knee pain COMPARISON: February 05, 2019 FINDINGS: Limited, single | | [place] view demonstrate no significant joint space narrowing, fracture or | | malalignment. Soft tissues are normal. IMPRESSION: Limited evaluation demonstrates | | normal knees. I have personally reviewed the images and, if necessary, edited the | | report. I agree with the report as now presented. Final signature: Anil Sommers MD | | 02/21/2019 11:16 AM Preliminary: Anil Sommers MD Dictation initiated: Anil Sommers | | 02/21/2019 11:16 AM | |Limited, single [place] view demonstrate no significant joint space narrowing, fracture o r malalignment. Soft tissues are normal. | | | |IMPRESSION: | | | |Limited evaluation demonstrates normal knees. | | | |I have personally reviewed the images and, if necessary, edited the report. I agree with th e report as now presented. | | | |Final signature: Anil Sommers MD 02/21/2019 11:16 AM | |Preliminary: Anil Sommers MD | |Dictation initiated: Anil Sommers MD 02/21/2019 11:16 AM | + + + +---------+ + [...] initial encounter - Primary | + + | Pain in both knees, unspecified chronicity | + + documented in this encounter
--- OUTSIDE RECORDS SUMMARY | ~2019-09-25 | XMS | Encounter Summary ---
Demographics + + + | Address | [address] | | | [place] [address] | + + + | Home Phone | | + + + | Preferred Language | Unknown | + + + | Marital Status | Single | + + + | Mandaen Affiliation | NRP | + + + [...] Team Providers + +------+ + | Care Brush Material Preparer Name | Role | Phone | + [...]
--- OUTSIDE RECORDS SUMMARY | ~2019-09-25 | XMS | Encounter Summary ---
Demographics + + + | Address | [address] | | | [place] [address] | + + + | Home Phone [...] Team Providers + +------+ + | Care Marine Reporter Name | Role | Phone | + +------+ + | No Pcp Per Patient | PCP | Unavailable | + +------+ + Encounter Details +--------+--------+ + + + | Date | Type | Department | Care Team | Description | +--------+--------+ + + + | 03/06/ | Travel | | | | | [...]
--- OUTSIDE RECORDS SUMMARY | ~2019-09-25 | XMS | Encounter Summary ---
Demographics + + + | Address | [address] | | | [place] [address] | + + + | Home Phone [...] + + | Author | [facility] [employer] [facility] | + + + | Organization | [facility] [employer] [facility] | + + + | Address | Unknown | + + + | Phone | Unavailable | + + + Support + + +---------+ + | Name | Relationship | Address | Phone | + + +---------+ + | Shyam Mcdonald | ECON | Unknown | | + + +---------+ + Care Team Providers + +------+ + | Care Field Artillery Crewmember Name | Role | Phone | + [...] Authorized | | Physical | Diagnoses | [place], | [facility] | | | | Therapy | Rupture of | Bobby | [address] | | | | | anterior | [facility] [address] | | | | | cruciate | [address] | Mailcode: | | | | | ligament of | [place], [place] | [address] | | | | | right knee, | [address] | for Health | | | | | initial | Phone: | and Healing, | | | | | encounter | [phone] | Building [address], | | | | | Procedures | Fax: | [address] | | | | | PHYSICAL | [phone] | [place], [place] | | | | | THERAPY | | [address] | | | | | REFERRAL | | Phone: | | | | | | | [phone] | | | | | | | Fax: | | | | | | | [phone] | + +--------+ + + + + Encounter Details +--------+---------+ + + + | Date | Type | Department | Care Team | Description | +--------+---------+ + + + | 08/01/ | Office | [facility] Physical | Monae Ureña, | Rupture of anterior | | 2019 | Visit | Therapy Services at | PT [address] [facility] | cruciate ligament of | | | | [facility] | [facility] | right knee, | | | | [address] | [place] | subsequent encounter | | | | Mailcode: [id number] | [id number] | (Primary Dx) | | | | [facility] | | | | | | and Healing, | | | | | | [address] | | | | | | Floor [place], [place] | | | | | | [address] | | | | | | [phone] | | | +--------+---------+ + + + [...] Instructions Patient Instructions Monae Ureña, PT - 08/02/2019 5:45 PM PDTStrength 2x a week, prog ressing as much as able: Quad "closed chain" Back squats with weight Single leg squats with weight (air, box, sit to stand) Lunges with weight Single leg-leg press Quad "open chain" Kick out with machine SINGLE LEG Reps of 5 with heavy weight 1x week Reps of 10 with moderate weight 1x week Hip strengthening: Cable diagonal kicks Cable back kicks Side steps with band Single leg bridge Side plank Balance: Bent knee reaches (while bending R knee into mini squat, reach L leg forward (come back), s chetan (come back) behind body (come back) Hamstring: Curls? Single leg lift Hamstring 2x week plyometrics: Jump rope Squat jumps in place (no knees in) Forward squat jumps Easy=Double leg Medium= Double leg take off, Single leg landing Hard= Single leg Box jums up Easy = Double leg Medium=Double leg take off, single legl anding Hard= Single leg Box jumps down (same progression) Side to side jumps Easy=exaggerated steps Hard= side jumps Ladders? Side shuffling? NOT ALLOWED: Contact sports Sprinting Cutting Change of direction documented in this encounter Progress Notes Monae Ureña, PT - 08/02/2019 5:45 PM PDTFormatting of this note might be different fr om the original. 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 SUBJECTIVE: 20 weeks s/p procedure + weeks Doing well Feeling stronger May go home for spring term so needs to discuss self prpogression OBJECTIVE: SL squat: able to get to 50 deg but valgus with appropriate correction TREATMENT: TherEx: Shuttle DL jump Shuttle SL jump DL hops inplace DLhops R/L over line DL hops forwared/back over line DL jumsp forward DL jumps forward with band at knees DL jups forward, SL landing Review of how to progres SL forward DL box jumps up DL box jumps down Review of progression of box jumps Skier steps/jumps Ladders Slow shuffling Therapeutic Exercise/Home program Strength 2x a week, progressing as much as able: Quad "closed chain" Back squats with weight Single leg squats with weight (air, box, sit to stand) Lunges with weight Single leg-leg press Quad "open chain" Kick out with machine SINGLE LEG Reps of 5 with heavy weight 1x week Reps of 10 with moderate weight 1x week Hip strengthening: Cable diagonal kicks Cable back kicks Side steps with band Single leg bridge Side plank Balance: Bent knee reaches (while bending R knee into mini squat, reach L leg forward (come back), s chetan (come back) behind body (come back) Hamstring: Curls: Single leg lift Hamstring 2x week plyometrics: Jump rope Squat jumps in place (no knees in) Forward squat jumps Easy=Double leg Medium= Double leg take off, Single leg landing Hard= Single leg Box jums up Easy = Double leg Medium=Double leg take off, single legl anding Hard= Single leg Box jumps down (same progression) Side to side jumps Easy=exaggerated steps Hard= side jumps Ladders Side shuffling NOT ALLOWED: Contact sports Sprinting Cutting Change of direction Long runs Cardio Plan: Re-initiate walk jog starting at 3 min jog, 2 min walk ASSESSMENT: Arnie is post-op R ACL repair with patellar tendon autograft 03/06/19, post-op course compl icated by DVT Due to school closure with coronavirus, patient will be heading back to [facility] inde finitely. Today spent significant time re-introducing plyometrics since PFPS decreased. Stre ssed continued strengthening, progressed Plyometrics, proper mechanics (avoiding valgus), an d avoiding precautions (runs, sprinting, cutting, turning, sports). Patient demonstrates und erstanding and will return when able. SHORT-TERM GOALS, discussed with patient, due in 8 weeks: MET 08/01 SLR no lag Full pain free knee ROM Good patella mobility Ambulate community distances with normal gait LONG-TERM GOALS, discussed with patient, due in 36 weeks: updated 07/21 Independent with HOME EXERCISE PROGRAM-70% met; limited by life stressors Able to demonstrate proper form with squat-70% met; some valgus with SL Pass functional knee sport test-Not passed Return to hobbies without limitations- 20%; can jog short distances PLAN: ROM per protocol Quad faciliation Patella mobs Stationary cycle as appropriate Modalities as needed This note is to serve as the discharge summary if the patient fails to attend further PT ap pointments or contact the therapist regarding any change in their status. MONAE UREÑA PT [facility] PHYSICAL THERAPY SERVICES AT [address] [place] Mailcode: [place] [address] Scheduled Appointment time: 5:45 PM The patient was seen for a total of 46 minutes of treatment time. 46 minutes was in direct contact care as described above. This includes flowsheets and patient instructions as utiliz ed. Treatment Interventions duration in minutes: Procedure:Therapeutic Exercise 46 min Frequency: 2x/wk x 4 weeks, then [...] encounter Next progress report 05/13/2019 Insurance: Payor: [employer] / Plan: [employer] / Product Type: PPO / Number visits authorized: - Number visits used: 10 Outcome Measure 03/14/2019 Lower Extremity Functional Scale [...] | + +--------+ + + + | [facility] | Routin | 08/03/2019 | Rupture [...] Primary | + + documented in this encounter
--- OUTSIDE RECORDS SUMMARY | ~2019-09-25 | XMS | Encounter Summary ---
Demographics + + + | Address | [address] | | | [place] [address] | + + + | Home Phone | | + + + | Preferred Language | Unknown | + + + | Marital Status | Single | + + + | Faith Affiliation | NRP | + + + | Race | Black or | + + + | Ethnic Group | Not or | + + + Author + + + | Author | [facility] [facility] | + + + | Organization | [facility] [employer] [facility] | + + + | Address | Unknown | + + + | Phone | Unavailable | + + + Support + + +---------+ + | Name | Relationship | Address | Phone | + + +---------+ + | Shyam Mcdonald | ECON | Unknown | | + + +---------+ + Care Team Providers + +------+ + | Care Farrowing Worker Name | Role | Phone | [...] | | | 2019 | Event | [facility] | MD [place] [address] | | | | | and Healing Surgery | [address] | | | | | Center Admitting | [place], [place] | | | | | Desk Located on the | [address] | | | | | 4th floor [address] | [phone] | | | | | [address] [place], | | | | | | [place] [address] | Chris Schaefer MD | | | | | | [address] | | | | | | [place], | | | | | | [place] [address] | | | | | | [phone] | | | | | | | [...]
--- OUTSIDE RECORDS SUMMARY | ~2019-09-25 | XMS | Encounter Summary ---
Demographics + + + | Address | [address] | | | [place] [address] | + + + | Home Phone | | + + + | Preferred Language | Unknown | + + + | Marital Status | Single | + + + | Denominational Affiliation | NRP | + + + | Race | Black or | + + + | Ethnic Group | Not or | + + + Author + + + | Author | [facility] | + + + | Organization | [facility] | + + + | Address | Unknown | + + + | Phone | Unavailable | + + + Support + + +---------+ + | Name | Relationship | Address | Phone | + + +---------+ + | Shyam Mcdonald | ECON | Unknown | | + + +---------+ + Care Team Providers + +------+ + | Care Gusset Ripper Name | Role | Phone | + [...] [address] | | | | | [facility] | [facility] [address] | | | | | [address] | [facility] [place] | | | | | Mailcode: CH3P | [phone] | | | | | [facility] | | | | | | and Healing, | | | | | | [address] | | | | | | Floor [facility] [place] | | | | | | [address] | | | | | | [phone] | | | +--------+ + + + [...]
--- OUTSIDE RECORDS SUMMARY | ~2019-09-25 | XMS | Encounter Summary ---
Demographics + + + | Address | [address] | | | [place] [address] | + + + | Home Phone [...] Providers + +------+ + | Care Press Box Custodian Name | Role | Phone | + +------+ + | No Pcp Per Patient | PCP | Unavailable | + +------+ + Encounter Details +--------+--------+ + + + | Date | Type | Department | Care Team | Description | +--------+--------+ + + + | 04/05/ | Travel | | | | | [...]
--- OUTSIDE RECORDS SUMMARY | ~2019-09-25 | XMS | Encounter Summary ---
Demographics + + + | Address | [address] | | | [place] [address] | + + + | Home Phone [...] Team Providers + +------+ + | Care Starting Sheet Tank Operator Name | Role | Phone | [...]
--- OUTSIDE RECORDS SUMMARY | ~2019-09-25 | XMS | Encounter Summary ---
Demographics + + + | Address | [address] | | | [place] [address] | + + + | Home Phone | | + + + | Preferred Language | Unknown | + + + | Marital Status | Single | + + + | Baptist Affiliation | NRP | + + + | Race | Black or | + + + | Ethnic Group | Not or | + + + Author + + + | Author | [facility] | + + + | Organization | [facility] | + + + | Address | Unknown | + + + | Phone | Unavailable | + + + Support + + +---------+ + | Name | Relationship | Address | Phone | + + +---------+ + | Shyam Mcdonald | ECON | Unknown | | + + +---------+ + Care Team Providers + +------+ + | Care Web Applications Architect Name | Role | Phone | + [...] | | | | right knee, | [address] | for Health | | | | | initial | Phone: | and Healing, | | | | | encounter | [phone] | Building 1, | | | | | Procedures | Fax: | [address] Floor | | | | | PHYSICAL | [phone] | [facility] [place] | | | | | THERAPY | | [address] | | | | | REFERRAL | | Phone: | | | | | | | [phone] | | | | | | | Fax: | | | | | | | [phone] | + +--------+ + + + + Encounter Details +--------+---------+ + + + | Date | Type | Department | Care Team | Description | +--------+---------+ + + + | 04/25/ | Office | [facility] | Jhon Roach, | Rupture of anterior | | 2019 | Visit | Therapy Services at | PT [address] | cruciate ligament of | | | | [facility] | [place] [address] | right knee, | | | | [address] | [phone] | subsequent encounter | | | | Mailcode: CH3P | | (Primary Dx) | | | | [place] for [facility] | | | | | | and Healing, | | | | | | [address], [address] | | | | | | Floor [place], [place] | | | | | | [address] | | | | | | [phone] | | | +--------+---------+ + + + [...] of this encounter Patient Instructions Patient Instructions Jhon Roach, PT - 04/25/2019 12:15 PM PST Winter exercise plan: Cardio: unlimited Recommendations 30-60 min Apply interval training schedule to bike/elliptical/stair master/swim Strength traininx/wk () Goals: increase strength to pass isokinetic test (wk 12) Increased weights, decrease reps SINGLE LEG leg press or SINGLE LEG TRX squats Weighted lunges Back squat ERPLY Band walks (ministerio burks) Participate in team workouts per Noah Electronically signed by Jhon Roach PT at 08/2018 12:59 PM PST documented in this encounter Progress Notes Jhon Roach, PT - 04/25/2019 12:15 PM PSTFormatting of this note might be different fr om the original. 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) Feels that the knee sometimes wants to snap backwards due to quad weakness OBJECTIVE: Therapeutic Exercise [employer] INTELL[employer] INTERNATIONALcirilo Vigiglobe 22# Back squat bar only 3 sets Discussed winter strengthening program (will have gym access) Including team strength/core/mobility plan Cardio: Recommendations 30-60 min Apply interval training schedule to bike/elliptical/stair master/swim Strength traininx/wk (reps: ) Goals: increase strength to pass isokinetic test (wk 12) Increased weight, decrease reps SINGLE LEG leg press or SINGLE LEG TRX squats Weighted lunges Back squat Lawn Vigiglobe Band walks (ministerio burks) ASSESSMENT: Arnie is post-op R ACL repair with patellar tendon autograft 10/15/19, post-op course compl icated by DVT Fair squatting technique, mod cueing to correct lumbopelvic stability but fair knee control , better with visual cueing Compliant with home exercise program, appropriate for progression today SHORT-TERM GOALS, discussed with patient, due in [...] change in their status. JHON ROACH PT [facility] PHYSICAL THERAPY SERVICES AT [address] Mailcode: [address] [address] Scheduled Appointment time: 12:15 PM [...] encounter Next progress report 05/13/2019 Insurance: Payor: [employer] / Plan: [employer] / Product Type: PPO / Number visits authorized: - Number visits used: 6 Outcome Measure 03/14/2019 Lower Extremity Functional Scale [...] + | [place] THERAPEUTIC | Routin | 04/25/2019 | Rupture of | | | EXERCISES | e | 1:10 PM | anterior cruciate | | | [...]
--- OUTSIDE RECORDS SUMMARY | ~2019-09-25 | XMS | Encounter Summary ---
Demographics + + + | Address | [address] | | | [place] [address] | + + + | Home Phone [...] + + | Author | [facility] | + + + | Organization | [facility] | + + + | Address | Unknown | + + + | Phone | Unavailable | + + + Support + + +---------+ + | Name | Relationship | Address | Phone | + + +---------+ + | Shyam Mcdonald | ECON | Unknown | | + + +---------+ + Care Team Providers + +------+ + | Care Preservationist Name | Role | Phone | + [...] | | | | right knee, | [address] | for Health | | | | | initial | Phone: | and Healing, | | | | | encounter | [phone] | Building 1, | | | | | Procedures | Fax: | [address] Floor | | | | | PHYSICAL | [phone] | [facility] [place] | | | | | THERAPY | | [address] | | | | | REFERRAL | | Phone: | | | | | | | [phone] | | | | | | | Fax: | | | | | | | [phone] | + +--------+ + + + + [...] cruciate ligament of | | | | [facility] | [place] [address] | right knee, | | | | [address] | [phone] | subsequent encounter | | | | Mailcode: CH3P | | (Primary Dx) | | | | [place] for [facility] | | | | | | and Healing, | | | | | | [address] | | | | | | Floor [place], [place] | | | | | | [address] | | | | | | [phone] | | | +--------+---------+ + + + [...] different fr om the original. Insurance: Payor: [facility] / Plan: [facility] / Product Type: PPO / Non-Medicare [facility] PHYSICAL THERAPY EVALUATION No past medical history [...] Hamstring stretch with strap to avoid stiffnes (0x02-53 sec; 3x/day) Quad set for muscle activation [...] - Unpredictable clinical presentation Complexity: High - 13193 The patient requires services that can be [...] change in their status. JHON ROACH PT [facility] PHYSICAL TH[facility]APY [facility] AT [facility] Scheduled Appointment time: 12:15 PM The patient was seen for a total of 45 minutes of treatment time. 45 minutes was in direct contact care as described above and on completed flow sheets. Treatment Interventions duration in minutes: Procedure:Physical Therapy Evaluation, Therape utic Exercise 15 min and Gait Training 5 min Authorization information for first visit and progress reports Procedure Codes: Re-evaluation 51702, Therapeutic Exercise 32239, Manual Therapy 39364, Th erapeutic Activities 80751, Neuromuscular Reeducation 34320 and Gait Training 81060 Minutes per session: 45 Total number of [...] encounter Next progress report 05/13/2019 Insurance: Payor: [employer] / Plan: [employer] / Product Type: PPO / Number visits [...] | + +--------+ + + + | [place] THERAPEUTIC | Routin | 03/14/2019 | Rupture [...]
--- OUTSIDE RECORDS SUMMARY | ~2019-09-25 | XMS | Encounter Summary ---
Demographics + + + | Address | [address] | | | [place] [address] | + + + | Home Phone | | + + + | Preferred Language | Unknown | + + + | Marital Status | Single | + + + | Gnosticist Affiliation | NRP | + + + | Race | Black or | + + + | Ethnic Group | Not or | + + + Author + + + | Author | [facility] | + + + | Organization | [facility] | + + + | Address | Unknown | + + + | Phone | Unavailable | + + + Support + + +---------+ + | Name | Relationship | Address | Phone | + + +---------+ + | Shyam Mcdonald | ECON | Unknown | | + + +---------+ + Care Team Providers + +------+ + | Care High Rigger Name | Role | Phone | + +------+ + | No Pcp Per Patient | PCP | Unavailable | + +------+ + Encounter Details +--------+ + + + + | Date | Type | Department | Care Team | Description | +--------+ + + + + | 08/27/ | Telephone-S | [facility] | Monae Ureña, | | | 2020 | cheduled | Therapy Services at | PT [address] | | | | | [facility] | [address] | | | | | [address] | [place], [place] | | | | | Mailcode: CH3P | [phone] | | | | | [facility] | | | | | | and Healing, | | | | | | Building [address], [address] | | | | | | Floor [place], [place] | | | | | | [address] | | | | | | [phone] | | | +--------+ + + + [...] documented as of this encounter Progress Notes Monae Ureña, PT - 08/28/2019 2:13 PM PDTPatient agrees to a telephone encounter for linda garcia's visit. Time spent on the call: 19 min. The patients encounter was accomplished via a telephone call today due to COVID-19 precauti onary measures to limit the patient's unnecessary exposure. Telephone Virtual Physical Therapy Follow-up due to modified operations under COVID19 Noah col: Subjective: Doing well. Has been doing some strengthening and some runs. Limited by access to resources Treatment Today: Verbal review of HEP, addressed any questions or concerns and educated patient on appropria te progressions as indicated. Discussion on next progression: continued plyometrcis, focus on SL jumping control Continued strengthening Progression of running with focus on building base (10 min straight) before speed Discussion on progressing to slow acceleration and deceleration faster speed runs Assessment: Verbal review and update of HEP per above. Following treatment patient verbaliz ed good understanding of home program and precautions. No adverse effects were reported duri ng or after. Plan: follow-up 2x/month for virtual visit and use [employer] to address any questions or conc erns; following COVID19 protocol MONAE UREÑA PT [facility] PHYSICAL THERAPY SERVICES AT [address] Mailcode: [address] [address] documented in this e ncounter Plan of Treatment Not on filedocumented as of this encounter Visit Diagnoses Not on filedocumented in this encounter"
--- OUTSIDE RECORDS SUMMARY | ~2019-09-25 | XMS | Encounter Summary ---
Demographics + + + | Address | [address] | | | [place] [address] | + + + | Home Phone | | + + + | Preferred Language | Unknown | + + + | Marital Status | Single | + + + | Protestant Affiliation | NRP | + + + | Race | Black or | + + + | Ethnic Group | Not or | + + + Author + + + | Author | [facility] | + + + | Organization | [facility] | + + + | Address | Unknown | + + + | Phone | Unavailable | + + + Support + + +---------+ + | Name | Relationship | Address | Phone | + + +---------+ + | Shyam Mcdonald | ECON | Unknown | | + + +---------+ + Care Team Providers + +------+ + | Care Resin Painter Name | Role | Phone | + [...] + + + + | 03/06/ | Hospital | [facility] | Miroslava Urbina | | | 2019 | Encounter | ST[address] | MD Jet [address] | | | | | [place] Mailcode: [facility] | [place], [place] | | | | | [facility] | [address] | | | | | Health and Healing, | [phone] | | | | | [place] [address] | | | | | | [place], [place] | | | | | | [address] | | | | | | [phone] | | | +--------+ + + + [...] stoperative protocol. Diet: Resume usual diet Call [phone] and ask for the orthopedic resident station repairer for difficulty breathing or u nusual shortness [...] hours, weekends and holidays, call the Hospital Turf Sales Person at [phone] and asked to have the doctor who [...] + + + | ARTHROSCOPIC MEDIAL | Electi | 03/06/2019 | S83.511A, S83.241A [...] encounter | + + documented in this encounter Administered Medications + +--------+ [...] capsule 1 | | | dose, Starting Tue19 at | | | 0751, Until 03/06/19 at 0810 | | + +---+ | [...] Until 03/06/19 at 2339, | | | moderate [...] | | | | at 0800, Until e 03/06/19 at | | | | | [...] at 1309, Until Tue | | | 10/15/19 at 2339, | | | nausea/vomiting, 1st line | | + +---+ | | | + +---+ documented in this encounter
--- OUTSIDE RECORDS SUMMARY | ~2019-09-25 | XMS | Encounter Summary ---
Demographics + + + | Address | [address] | | | [place] [address] | + + + | Home Phone | | + + + | Preferred Language | Unknown | + + + | Marital Status | Single | + + + | Rastafari Affiliation | NRP | + + + | Race | Black or | + + + | Ethnic Group | Not or | + + + Author + + + | Author | [facility] | + + + | Organization | [facility] | + + + | Address | Unknown | + + + | Phone | Unavailable | + + + Support + + +---------+ + | Name | Relationship | Address | Phone | + + +---------+ + | Shyam Mcdonald | ECON | Unknown | | + + +---------+ + Care Team Providers + +------+ + | Care Refractory Tile Helper Name | Role | Phone | + +------+ + | No Pcp Per Patient | PCP | Unavailable | + +------+ + Encounter Details +--------+ + + + + | Date | Type | Department | Care Team | Description | +--------+ + + + + | 02/05/ | Hospital | Radiology/Imaging | David Louie, | | | 2019 | Encounter | Lab at [facility] [address] | [address] | | | | | [address] Mailcode: | [address] | | | | | [facility] | [place], [place] | | | | | Health and Healing, | [address] | | | | | [address] | [phone] | | | | | Floor [place], [place] | | | | | | [address] | | | | | | [phone] | | | +--------+ + + + [...] +--------+ + + + | X-RAY KNEE 3 VIEWS | Urgent | 02/05/2019 | Rupture of | Results for this | | RIGHT | | 5:33 PM | anterior cruciate | procedure are in the | | | | PDT | ligament of right | results section. | | | | | knee, initial | | | | | | encounter | | + +--------+ + + + documented in this encounter Results X-RAY KNEE 3 VIEWS RIGHT (02/05/2019 5:33 PM PDT) + + | Specimen | + + | | + + + + + | Narrative | Performed At | + + + | EXAM: KNEE 3 VIEWS RIGHT HISTORY: Right knee injury months ago, | [facility] | | recurrent swelling w/ poss ACL tear; [employer] athlete COMPARISON: None. | RADIOLOGY VOICE | | FINDINGS: No evidence of acute fracture or dislocation. No | RECOGNITION 2 | | knee joint effusion. No significant osteophytosis. IMPRESSION: | | | Normal nonweightbearing radiographic examination of the knee. I | | | have personally reviewed the images and, if necessary, edited the | | | report. I agree with the report as now presented. Final | | | signature: Glenroy Wagoner MD 02/06/2019 9:02 AM Preliminary: | | | Glenroy Wagoner MD Dictation initiated: Glenroy Wagoner MD | | | 02/06/2019 9:02 AM | | + + + + + | Procedure Note | + + | Service Account, Radiant Res In Interface - 02/06/2019 9:03 AM PDT EXAM: KNEE 3 | | VIEWS RIGHT HISTORY: Right knee injury months ago, recurrent swelling w/ poss ACL tear; | | [employer] athlete COMPARISON: None. FINDINGS: No evidence of acute fracture or dislocation. | | No knee joint effusion. No significant osteophytosis. IMPRESSION: Normal | | nonweightbearing radiographic examination of the knee. I have personally reviewed the | | images and, if necessary, edited the report. I agree with the report as now presented. | | Final signature: Glenroy Wagoner MD 02/06/2019 9:02 AM Preliminary: Glenroy Wagoner | | Dictation initiated: Glenroy Wagoner MD 02/06/2019 9:02 AM | |No evidence of acute fracture or dislocation. No knee joint effusion. No significant osteop hytosis. | | | |IMPRESSION: | | | |Normal nonweightbearing radiographic examination of the knee. | | | |I have personally reviewed the images and, if necessary, edited the report. I agree with th e report as now presented. | | | |Final signature: Glenroy Wagoner MD 02/06/2019 9:02 AM | |Preliminary: Glenroy Wagoner MD | |Dictation initiated: Glenroy Wagoner MD 02/06/2019 9:02 AM | + + + +---------+ + [...]
--- OUTSIDE RECORDS SUMMARY | ~2019-09-25 | XMS | Encounter Summary ---
Demographics + + + | Address | [address] | | | [place] [address] | + + + | Home Phone [...] + | Author | [facility] | + + + | Organization | [facility] | + + + | Address | Unknown | + + + | Phone | Unavailable | + + + Support + + +---------+ + | Name | Relationship | Address | Phone | + + +---------+ + | Shyam Mcdonald | ECON | Unknown | | + + +---------+ + Care Team Providers + +------+ + | Care Professor Of Criminal Justice Name | Role | Phone | + +------+ + | No Pcp Per Patient | PCP | Unavailable | + +------+ + Reason for Visit +---------+ + | Reason | Comments | +---------+ + | Post Op | knee | +---------+ + PROC - Outpatient Surgery (Routine) +--------+--------+ [...] Rupture of | Epic Dept | Miroslava Chaudhary, | | | | | anterior | | [address] | | | | | cruciate | [address] | | | | | ligament of | | [place], [place] | | | | | right knee, | | [address] | | | | | initial | | Phone: | | | | | encounter | | [phone] | | | | | Other tear | | Fax: | | | | | of medial | | [phone] | | | | | meniscus, | [...] | | | | | | | GROUP ROOMS COORDINATOR | | | | | | | [...] + + | 03/21/ | Office | Orthopaedics | Shreya Akins | Postop check | | 2019 | Visit | [facility] at [employer] | JOVI Chaudhary [address] | (Primary Dx) | | | | for Health and | [address] | | | | | Healing [address] | [place], [place] | | | | | Ave Mailcode: | [address] | | | | | [facility] for | [phone] | | | | | Health and Healing, | | | | | | [facility] | | | | | | Floor [place], [place] | | | | | | [address] | | | | | | [phone] | | | +--------+---------+ + + + [...] Weight | 70.3 kg (155 lb) | 03/21/2019 2:12 PM | | | | | PDT | | + + + + + | Height | 180.3 cm (5' 11") | 03/21/2019 2:12 PM | | | | | PDT | | + + + + + | Body Mass Index | 21.62 | 03/21/2019 2:12 PM | | | | | PDT | | + + + + + documented in this encounter Progress Notes Shreya Akins PA-C - 03/21/2019 2:20 PM PDTFormatting of this note might be differe nt from the original. Diagnosis: Right knee ACL tear; small undersurface crack of posterior horn medial meniscus, left in place Interventions to date: 03/06/19 Right knee arthroscopy with ACL reconstruction using patell ar tendon autograft Review of interval history and current physical exam indicates that each is essentially unc hanged with the notable exceptions as described above and below. Subjective: He was diagnosed with DVT last week, and now on Xarelto, tolerating this well. He's pleased with his knee progress. 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 He is walking with his brace unlocked EXAM: Gait: mildly antalgic in brace Skin and integument: clean and dry with no signs of infection. Range of motion: 0 to 120 Ligaments: Right Left Valgus 30 Symmetric with solid endpoint Symmetric with solid endpoint Varus 30 Symmetric with solid endpoint Symmetric with solid endpoint Gena 1 and A 1 and A Pivot shift not tested not tested Post Drawer Negative Negative Other: good quad set, minimal lag with SLR Assessment: Progressing well postop ACL, with postop DVT being treated with Xarelto Plan: continue PT per protocol, RCT with Dr Urbina in 4 weeks documented in t his encounter Plan of Treatment Not on filedocumented as of this encounter Visit Diagnoses + + | Diagnosis | + + | Postop check - Primary Follow-up examination, following unspecified surgery | + + documented in this encounter
--- OUTSIDE RECORDS SUMMARY | ~2019-09-25 | XMS | Encounter Summary ---
Demographics + + + | Address | [address] | | | [place] [address] | + + + | Home Phone [...] Team Providers + +------+ + | Care Tow Picker Name | Role | Phone | + +------+ + | No Pcp Per Patient | PCP | Unavailable | + +------+ + Encounter Details +--------+--------+ + + + | Date | Type | Department | Care Team | Description | +--------+--------+ + + + | 03/21/ | Travel | | | | | [...]
--- OUTSIDE RECORDS SUMMARY | ~2019-09-25 | XMS | Encounter Summary ---
Demographics + + + | Address | [address] | | | [place] [address] | + + + | Home Phone | | + + + | Preferred Language | Unknown | + + + | Marital Status | Single | + + + | Holiness Affiliation | NRP | + + + | Race | Black or | + + + | Ethnic Group | Not or | + + + Author + + + | Author | [facility] | + + + | Organization | [facility] [employer] | + + + | Address | Unknown | + + + | Phone | Unavailable | + + + Support + + +---------+ + | Name | Relationship | Address | Phone | + + +---------+ + | Shyam Mcdonald | ECON | Unknown | | + + +---------+ + Care Team Providers + +------+ + | Care Splitting Machine Tender Name | Role | Phone | + +------+ + | No Pcp Per Patient | PCP | Unavailable | + +------+ + Encounter Details +--------+ + + + + | Date | Type | Department | Care Team | Description | +--------+ + + + + | 02/05/ | Procedure | Diagnostic Imaging | | | | 2018 | Pass | Services at [facility] | | | | | | [address] | | | | | | [address] | | | | | | [facility] | | | | | | [place], [place] | | | | | | [address] | | | | | | [phone] | | | +--------+ + + + [...]
--- OUTSIDE RECORDS SUMMARY | ~2019-09-25 | XMS | Encounter Summary ---
Demographics + + + | Address | [address] | | | [place] [address] | + + + | Home Phone | | + + + | Preferred Language | Unknown | + + + | Marital Status | Single | + + + | Worship Affiliation | NRP | + + + | Race | Black or | + + + | Ethnic Group | Not or | + + + Author + + + | Author | [facility] | + + + | Organization | [facility] | + + + | Address | Unknown | + + + | Phone | Unavailable | + + + Support + + +---------+ + | Name | Relationship | Address | Phone | + + +---------+ + | Shyam Mcdonald | ECON | Unknown | | + + +---------+ + Care Team Providers + +------+ + | Care Editorial Specialist Name | Role | Phone | [...] [address] | | | | | [facility] | [facility] [address] | | | | | [address] | [place], [place] | | | | | Mailcode: CH3P | [phone] | | | | | [facility] | | | | | | and Healing, | | | | | | [address] | | | | | | Floor [place], [place] | | | | | | [address] | | | | | | [phone] | | | +--------+ + + + [...] follow-up 2x/month for virtual visit and use [employer] to address any questions or conc erns; following COVID19 protocol MONAE UREÑA PT [facility] PHYSICAL THERAPY SERVICES AT [address] Mailcode: [address] [address] documented in this e ncounter Plan of Treatment Not on filedocumented as of this encounter Visit Diagnoses Not on filedocumented in this encounter"
--- OUTSIDE RECORDS SUMMARY | ~2019-09-25 | XMS | Encounter Summary ---
Demographics + + + | Address | [address] | | | [place] [address] | + + + | Home Phone [...] Author + + + | Author | [facility] | + + + | Organization | [facility] | + + + | Address | Unknown | + + + | Phone | Unavailable | + + + Support + + +---------+ + | Name | Relationship | Address | Phone | + + +---------+ + | Shyam Mcdonald | ECON | Unknown | | + + +---------+ + Care Team Providers + +------+ + | Care Colon Therapist Name | Role | Phone | [...] + + | 03/06/ | Surgery | [facility] | Miroslava Urbina | RIGHT KNEE | | 2019 | | [place] for [facility] | MD Jet [address] | ARTHROSCOPY WITH | | | | and Healing Surgery | [place], [place] | ANTERIOR CRUCIATE | | | | Center Admitting | [address] | LIGAMENT | | | | Desk Located on the | [phone] | RECONSTRUCTION USING | | | | 4th floor [address] | | PATELLAR TENDON | | | | [address] [place], | | AUTOGRAFT; | | | | [place] [address] | | | +--------+---------+ + + + [...] stoperative protocol. Diet: Resume usual diet Call [phone] and ask for the orthopedic resident reconciliation analyst for difficulty breathing or u nusual shortness [...] hours, weekends and holidays, call the Hospital Varnish Filterer at [phone] and asked to have the doctor who [...]
--- OUTSIDE RECORDS SUMMARY | ~2019-09-25 | XMS | Encounter Summary ---
Demographics + + + | Address | [address] | | | [place] [address] | + + + | Home Phone | | + + + | Preferred Language | Unknown | + + + | Marital Status | Single | + + + | Tenriism Affiliation | NRP | + + + | Race | Black or | + + + | Ethnic Group | Not or | + + + Author + + + | Author | [facility] | + + + | Organization | [facility] | + + + | Address | Unknown | + + + | Phone | Unavailable | + + + Support + + +---------+ + | Name | Relationship | Address | Phone | + + +---------+ + | Shyam Mcdonald | ECON | Unknown | | + + +---------+ + Care Team Providers + +------+ + | Care Diesel Inspector Name | Role | Phone | + [...] | | | | cruciate | [address] | Mailcode: | | | | | ligament of | [place], [place] | [facility] | | | | | right knee, | [address] | for Health | | | | | initial | Phone: | and Healing, | | | | | encounter | [phone] | Building 1, | | | | | Procedures | Fax: | [address]St Floor | | | | | PHYSICAL | [phone] | [facility] [place] | | | | | THERAPY | | [address] | | | | | REFERRAL | | Phone: | | | | | | | [phone] | | | | | | | Fax: | | | | | | | [phone] | + +--------+ + + + + [...] | | [facility] | [place] [address] | right knee, | | | | [address] | [phone] | subsequent encounter | | | | Mailcode: [facility] | | (Primary Dx) | | | | [place] for [facility] | | | | | | and Healing, | | | | | | Building [address], [address] | | | | | | Floor [place], [place] | | | | | | [address] | | | | | | [phone] | | | +--------+---------+ + + + [...] different fr om the original. Insurance: Payor: [employer] / Plan: [employer] / Product Type: PPO / Non-Medicare Procedure: [...] Hamstring stretch with strap to avoid stiffnes (4p95-62 sec; 3x/day) Quad set for muscle activation [...] change in their status. JHON ROACH, PT [facility] PHYSICAL THERAPY SERVICES AT [address] Mailcode: [address] [address] Scheduled Appointment time: 12:15 PM [...] encounter Next progress report 05/13/2019 Insurance: Payor: [employer] / Plan: [facility] / Product Type: PPO / Number visits [...] + | [place] THERAPEUTIC | Routin | 03/21/2019 | Rupture [...]
--- OUTSIDE RECORDS SUMMARY | ~2019-09-25 | XMS | Encounter Summary ---
Demographics + + + | Address | [address] | | | [place] [address] | + + + | Home Phone | | + + + | Preferred Language | Unknown | + + + | Marital Status | Single | + + + | Yazidi Affiliation | NRP | + + + | Race | Black or | + + + | Ethnic Group | Not or | + + + Author + + + | Author | [facility] | + + + | Organization | [facility] [employer] [facility] | + + + | Address | Unknown | + + + | Phone | Unavailable | + + + Support + + +---------+ + | Name | Relationship | Address | Phone | + + +---------+ + | Shyam Mcdonald | ECON | Unknown | | + + +---------+ + Care Team Providers + +------+ + | Care Healthcare Social Worker Name | Role | Phone | [...] | CONSULT TO | [address] | [place], [place] | | | | | HEMATOLOGY / | [facility], [place] | [address] | | | | | ONCOLOGY | [address] | Phone: | | | | | DC NEW | Phone: | [phone] | | | | | PATIENT | [phone] | Fax: | | | | | LEVEL V DC | Fax: | [phone] | | | | | EST PATIENT | [phone] | | | | | | LEVEL V | | | + +---------+ + + + + Encounter Details +--------+---------+ + + + | Date | Type | Department | Care Team | Description | +--------+---------+ + + + | 05/28/ | Office | [facility] | Rylee, | Thrombosis (Primary | | 2020 | Visit | Clinics at S | MD [address] | Dx) | | | | 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 Denies smoking or illicit substance use. [...] LAB VENOUS DUPLEX LOWER EXTREMITY RT Order: [id number] Status: Final result Visible to patient: Yes [...] RIGHT 3 VIEWS LEFT ORTHO COMBO Order: [id number] Status: Final result Visible to patient: No [...] Heike Rueda. Quirino Bañuelos MD, [place] makeup sales advisor, Pathology, and Pediatrics [facility] documented in this encounter Plan of Treatment Not on filedocumented as of this encounter Visit Diagnoses + + | Diagnosis | + + | Thrombosis - Primary Embolism and thrombosis of unspecified site | + + documented in this encounter"
--- OUTSIDE RECORDS SUMMARY | ~2019-09-25 | XMS | Encounter Summary ---
Demographics + + + | Address | [address] | | | [place] [address] | + + + | Home Phone [...] + + + | Author | [facility] | + + + | Organization | [facility] [place] [facility] | + + + | Address | Unknown | + + + | Phone | Unavailable | + + + Support + + +---------+ + | Name | Relationship | Address | Phone | + + +---------+ + | Shyam Mcdonald | ECON | Unknown | | + + +---------+ + Care Team Providers + +------+ + | Care Director Of Respiratory Therapy Name | Role | Phone | + [...] | | | | ligament of | [place], [place] | [address] | | | | | right knee, | [address] | for Health | | | | | initial | Phone: | and Healing, | | | | | encounter | [phone] | Building 1, | | | | | Procedures | Fax: | [address]St Floor | | | | | PHYSICAL | [phone] | [place], [place] | | | | | THERAPY | | [address] | | | | | REFERRAL | | Phone: | | | | | | | [phone] | | | | | | | Fax: | | | | | | | [phone] | + +--------+ + + + + Encounter Details +--------+---------+ + + + | Date | Type | Department | Care Team | Description | +--------+---------+ + + + | 06/14/ | Office | [facility] Physical | Monae Ureña, | Rupture of anterior | | 2019 | Visit | Therapy Services at | PT [address] [facility] | cruciate ligament of | | | | [facility] | right knee, | | | | [address] | [facility] [place] | subsequent encounter | | | | Mailcode: [facility] | [phone] | (Primary Dx) | | | | [facility] | | | | | | and Healing, | | | | | | Building [address], [address] | | | | | | Floor [place], [place] | | | | | | [address] | | | | | | [phone] | | | +--------+---------+ + + + [...] different fr om the original. Insurance: Payor: [employer] / Plan: [employer] / Product Type: PPO / Non-Medicare Procedure: [...] change in their status. MONAE UREÑA, PT [facility] PHYSICAL THERAPY SERVICES AT [address] Mailcode: [address] [address] Scheduled Appointment time: 6:30 PM [...] encounter Next progress report 05/13/2019 Insurance: Payor: [employer] / Plan: [employer] / Product Type: PPO / Number visits [...] | + +--------+ + + + | IN THERAPEUTIC | Routin | 06/19/2019 | Rupture [...]
--- OUTSIDE RECORDS SUMMARY | ~2019-09-25 | XMS | Encounter Summary ---
Demographics + + + | Address | [address] | | | [place] [address] | + + + | Home Phone [...] | Author | [facility] | + + + | Organization | [facility] | + + + | Address | Unknown | + + + | Phone | Unavailable | + + + Support + + +---------+ + | Name | Relationship | Address | Phone | + + +---------+ + | Shyam Mcdonald | ECON | Unknown | | + + +---------+ + Care Team Providers + +------+ + | Care Exit Booth Agent Name | Role | Phone | + [...] | | | | ligament of | [place], [place] | [address] | | | | | right knee, | [address] | for Health | | | | | initial | Phone: | and Healing, | | | | | encounter | [phone] | Building 1, | | | | | Procedures | Fax: | [address]St Floor | | | | | PHYSICAL | [phone] | [place], [place] | | | | | THERAPY | | [address] | | | | | REFERRAL | | Phone: | | | | | | | [phone] | | | | | | | Fax: | | | | | | | [phone] | + +--------+ + + + + Encounter Details +--------+---------+ + + + | Date | Type | Department | Care Team | Description | +--------+---------+ + + + | 05/29/ | Office | [facility] Physical | Monae Ureña, | Rupture of anterior | | 2019 | Visit | Therapy Services at | PT [address] [facility] | cruciate ligament of | | | | [facility] | [facility] | right knee, | | | | [address] | [facility] [place] | subsequent encounter | | | | Mailcode: [facility] | [phone] | (Primary Dx) | | | | [facility] | | | | | | and Healing, | | | | | | Building [address], [address] | | | | | | Floor [place], [place] | | | | | | [address] | | | | | | [phone] | | | +--------+---------+ + + + [...] different fr om the original. Insurance: Payor: [employer] / Plan: [employer] / Product Type: PPO / Non-Medicare Procedure: [...] change in their status. MONAE UREÑA PT [facility] PHYSICAL THERAPY SERVICES AT [address] [place] Mailcode: [place] [address] Scheduled Appointment time: 1:30 PM [...] encounter Next progress report 05/13/2019 Insurance: Payor: [employer] / Plan: [employer] / Product Type: PPO / Number visits [...]
--- OUTSIDE RECORDS SUMMARY | ~2019-09-25 | XMS | Encounter Summary ---
Demographics + + + | Address | [address] | | | [place] [address] | + + + | Home Phone | | + + + | Preferred Language | Unknown | + + + | Marital Status | Single | + + + | Rastafarian Affiliation | NRP | + + + [...] Team Providers + +------+ + | Care Woven Label Designer Name | Role | Phone | + [...]
--- OUTSIDE RECORDS SUMMARY | ~2019-09-25 | XMS | Encounter Summary ---
Demographics + + + | Address | [address] | | | [place] [address] | + + + | Home Phone [...] Author + + + | Author | [facility] | + + + | Organization | [facility] | + + + | Address | Unknown | + + + | Phone | Unavailable | + + + Support + + +---------+ + | Name | Relationship | Address | Phone | + + +---------+ + | Shyam Mcdonald | ECON | Unknown | | + + +---------+ + Care Team Providers + +------+ + | Care Cardiac Nurse Name | Role | Phone | + [...] | | | | ligament of | [place], [place] | [address] | | | | | right knee, | [address] | for Health | | | | | initial | Phone: | and Healing, | | | | | encounter | [phone] | Building 1, | | | | | Procedures | Fax: | [address] Floor | | | | | PHYSICAL | [phone] | [place], [place] | | | | | THERAPY | | [address] | | | | | REFERRAL | | Phone: | | | | | | | [phone] | | | | | | | Fax: | | | | | | | [phone] | + +--------+ + + + + Encounter Details +--------+---------+ + + + | Date | Type | Department | Care Team | Description | +--------+---------+ + + + | 08/01/ | Office | [facility] Physical | Monae Ureña, | Rupture of anterior | | 2019 | Visit | Therapy Services at | PT [address] [facility] | cruciate ligament of | | | | [facility] | [facility] | right knee, | | | | [address] | [facility] | subsequent encounter | | | | Mailcode: [facility] | [phone] | (Primary Dx) | | | | [facility] | | | | | | and Healing, | | | | | | Building [address], [address] | | | | | | Floor [place], [place] | | | | | | [address] | | | | | | [phone] | | | +--------+---------+ + + + [...] different fr om the original. Insurance: Payor: [facility] / Plan: [facility] / Product Type: PPO / Non-Medicare Procedure: [...] coronavirus, patient will be heading back to [facility]. Today spent significant time re-introducing [...] change in their status. MONAE UREÑA PT [facility] PHYSICAL THERAPY SERVICES AT [address] [place] Mailcode: [place] [address] Scheduled Appointment time: 5:45 PM [...] encounter Next progress report 05/13/2019 Insurance: Payor: [employer] / Plan: [employer] / Product Type: PPO / Number visits [...] | + +--------+ + + + | [place] THERAPEUTIC | Routin | 08/03/2019 | Rupture [...]
--- OUTSIDE RECORDS SUMMARY | ~2019-09-25 | XMS | Clinical Summary ---
Demographics + + + | Address | [address] | | | [place] [address] | + + + | Home Phone [...] Team Providers + +------+ + | Care Head Holder Name | Role | Phone | + +------+ + | No Pcp Per Patient | PCP | Unavailable | + +------+ + Source Comments JT is fully live on both [facility] Allergies No Known Allergies Medications + + [...] 2mm | | | | | | /[id number] | | Nitinol Guidepin - | | | | | | 587 | | [id number]: Qty: 1 on | | | | | | | | 03/06/2019 by Carlitos | | | | | | | | Miroslava Chaudhary MD at [facility] | | | | | | [...] on | | | | | | /[id number] | | 03/06/2019 by Carlitos, | | | | | | 195 | | Miroslava Chaudhary MD at [facility] | | | | | | | | INPATIENT REV LOC | | | | | | | + +------+--------+ +--------+--------+--------+ Procedures + +--------+ + + + | Procedure Name | Priori | Date/Time | Associated Diagnosis | Comments | | | ty | | | | + +--------+ + + + | [place] THERAPEUTIC | Routin | 08/03/2019 | Rupture of | | | EXERCISES | e | 7:13 AM | anterior cruciate | | | | | PDT | ligament of right | | | | | | knee, subsequent | | | | | | encounter | | + +--------+ + + + | [place] THERAPEUTIC | Routin | 07/17/2019 | Rupture [...] | PACIFI | [id number] | 05/23/19 | [phone] | [address] | PPO | | | [facility] | | 19-Pre | [address] | | | [address] | | sent | | [place] | | | | | | | | , [place] | | | | | | | | [address] | | + +--------+ +--------+ + +------+ [...] [address] | | | 0 (Home) | [address] | + +--------+ +--------+ + + | Arnie Mcdonald E | Specia | Self | [birth year] | [address] | | | l | | 1994 | | [place] | | | [place] | | | 0 (Home) | [address] | | | g | | | [...]
--- OUTSIDE RECORDS SUMMARY | ~2019-09-25 | XMS | Encounter Summary ---
Demographics + + + | Address | [address] | | | [place] [address] | + + + | Home Phone [...] Author + + + | Author | [facility] | + + + | Organization | [facility] [employer] [facility] | [...] Team Providers + +------+ + | Care Sap Solution Manager Consultant Name | Role | Phone | + [...] Isreal Daniels | | | | | [facility] | [place], [place] | | | | | Health and Healing, | [address] | | | | | [address] | [phone] | | | | | Floor [place], [place] | | | | | | [address] | | | | | | [phone] | | | +--------+ + + + [...]
--- OUTSIDE RECORDS SUMMARY | ~2019-09-25 | XMS | Encounter Summary ---
Demographics + + + | Address | [address] | | | [place] [address] | + + + | Home Phone | | + + + | Preferred Language | Unknown | + + + | Marital Status | Single | + + + | Zoroastrianism Affiliation | NRP | + + + | Race | Black or | + + + | Ethnic Group | Not or | + + + Author + + + | Author | [facility] | + + + | Organization | [facility] | + + + | Address | Unknown | + + + | Phone | Unavailable | + + + Support + + +---------+ + | Name | Relationship | Address | Phone | + + +---------+ + | Shyam Mcdonald | ECON | Unknown | | + + +---------+ + Care Team Providers + +------+ + | Care Cheese Cutter Name | Role | Phone | + +------+ + | No Pcp Per Patient | PCP | Unavailable | + +------+ + Encounter Details +--------+ + + + + | Date | Type | Department | Care Team | Description | +--------+ + + + + | 08/27/ | MyChart | [facility] Physical | Monae Goel, | Plan | | 2020 | Encounter | Therapy Services at | PT [address] | | | | | [facility] | [facility] [address] | | | | | [address] | [facility] [place] | | | | | Mailcode: CH3P | [address] | | | | | [facility] | | | | | | and Healing, | | | | | | [address] | | | | | | Floor [facility] [place] | | | | | | [address] | | | | | | [phone] | | | +--------+ + + + [...]
--- OUTSIDE RECORDS SUMMARY | ~2019-09-25 | XMS | Encounter Summary ---
Demographics + + + | Address | [address] | | | [place] [address] | + + + | Home Phone [...] Author + + + | Author | [facility] [employer] [facility] | + + + | Organization | [facility] | + + + | Address | Unknown | + + + | Phone | Unavailable | + + + Support + + +---------+ + | Name | Relationship | Address | Phone | + + +---------+ + | Shyam Mcdonald | ECON | Unknown | | + + +---------+ + Care Team Providers + +------+ + | Care Technical Administrator Name | Role | Phone | + [...] | | | | ligament of | [place], [place] | [address] | | | | | right knee, | [address] | for Health | | | | | initial | Phone: | and Healing, | | | | | encounter | [phone] | Building 1, | | | | | Procedures | Fax: | [address] Floor | | | | | PHYSICAL | [phone] | [place], [place] | | | | | THERAPY | | [address] | | | | | REFERRAL | | Phone: | | | | | | | [phone] | | | | | | | Fax: | | | | | | | [phone] | + +--------+ + + + + Encounter Details +--------+---------+ + + + | Date | Type | Department | Care Team | Description | +--------+---------+ + + + | 04/05/ | Office | [facility] Physical | Monae Ureña, | Rupture of anterior | | 2019 | Visit | Therapy Services at | PT [address] [facility] | cruciate ligament of | | | | [facility] | [facility] | right knee, | | | | [address] | [facility] | subsequent encounter | | | | Mailcode: CH3P | [address] | (Primary Dx) | | | | [facility] | | | | | | and Healing, | | | | | | Building [address], [address] | | | | | | Floor [place], [place] | | | | | | [address] | | | | | | [phone] | | | +--------+---------+ + + + [...] different fr om the original. Insurance: Payor: [employer] / Plan: [employer] / Product Type: PPO / Non-Medicare Procedure: [...] change in their status. MONAE UREÑA, PT [facility] PHYSICAL THERAPY SERVICES AT [address] Mailcode: [place] [address] Scheduled Appointment time: 10:30 AM [...] encounter Next progress report 05/13/2019 Insurance: Payor: [employer] / Plan: [employer] / Product Type: PPO / Number visits [...] + | IN THERAPEUTIC | Routin | 04/05/2019 | Rupture [...]
--- OUTSIDE RECORDS SUMMARY | ~2019-09-25 | XMS | Encounter Summary ---
Demographics + + + | Address | [address] | | | [place] [address] | + + + | Home Phone [...] + | Author | [facility] | + + + | Organization | [facility] | + [...] Team Providers + +------+ + | Care Grain Elevator Clerk Name | Role | Phone | [...] | 2019 | Encounter | Services at [facility] | MD [address] | | | | | [address] | [place] [facility] [place] | | | | | Mailcode: [place] | [address] | | | | | [facility] and | [phone] | | | | | [facility] 1 | | | | | | [facility] [place] | | | | | | [address] | | | | | | [phone] | | | +--------+ + + + [...] Note | + + | Service Account, [employer] Res In Interface - 03/14/2019 2:27 PM [...]
--- OUTSIDE RECORDS SUMMARY | ~2019-09-25 | XMS | Encounter Summary ---
Demographics + + + | Address | [address] | | | [place] [address] | + + + | Home Phone | | + + + | Preferred Language | Unknown | + + + | Marital Status | Single | + + + | Buddhism Affiliation | NRP | + + + [...] Providers + +------+ + | Care Model Making Supervisor Name | Role | Phone | + [...]
--- OUTSIDE RECORDS SUMMARY | ~2019-09-25 | XMS | Encounter Summary ---
Demographics + + + | Address | [address] | | | [place] [address] | + + + | Home Phone [...] Author + + + | Author | [facility] [employer] [facility] | + + + | Organization | [facility] [email or web address] [facility] | + + + | Address | Unknown | + + + | Phone | Unavailable | + + + Support + + +---------+ + | Name | Relationship | Address | Phone | + + +---------+ + | Shyam Mcdonald | ECON | Unknown | | + + +---------+ + Care Team Providers + +------+ + | Care Proposal Engineer Name | Role | Phone | + [...] | | [address] Mailcode: | [place], [place] | | | | | [facility] | [address] | | | | | Health and Healing, | [phone] | | | | | | | | | | | Floor [place], [place] | | | | | | [address] | | | | | | [phone] | | | +--------+ + + + [...] Note | + + | Service Account, [employer] Res In Interface - 05/28/2019 9:04 AM [...]
--- OUTSIDE RECORDS SUMMARY | ~2019-09-25 | XMS | Encounter Summary ---
Demographics + + + | Address | [address] | | | [place] [address] | + + + | Home Phone | | + + + | Preferred Language | Unknown | + + + | Marital Status | Single | + + + | Zoroastrian Affiliation | NRP | + + + [...] Team Providers + +------+ + | Care Rn Intake Name | Role | Phone | + [...]
--- OUTSIDE RECORDS SUMMARY | ~2019-09-25 | XMS | Encounter Summary ---
Demographics + + + | Address | [address] | | | [place] [address] | + + + | Home Phone [...] + | Author | [facility] | + + + | Organization | [facility] | + + + | Address | Unknown | + + + | Phone | Unavailable | + + + Support + + +---------+ + | Name | Relationship | Address | Phone | + + +---------+ + | Shyam Mcdonald | ECON | Unknown | | + + +---------+ + Care Team Providers + +------+ + | Care Orchid Worker Name | Role | Phone | [...] | | | right knee, | | [address] | | | | | initial | | Phone: | | | | | encounter | | [phone] | | | | | Other tear | | Fax: | | | | | of medial | | [phone] | | | | | meniscus, | [...] | | | | | | | TAG WRITER | | | | | | | MD KNEE | | | | | | | SCOPE,AID | | | | | | | ANT CRUCIATE | | | | | | | REPAIR MD | | | | | | | REMV TENDON | | | | | | | FOR GRAFT | | | | | | | MD KNEE | | | | | | | SCOPE,MED [place] | | | | | | | LAT MENIS | | | | | | | REPAIR MD | | | | | | | [...] | 2019 | Visit | [facility] at [facility] | JOVI Chaudhary [address] | (Primary Dx) | | | | for Health and | [address] | | | | | Healing [address] | [place], [place] | | | | | Ave Mailcode: | [address] | | | | | CH12A [facility] for | [phone] | | | | | Health and Healing, | | | | | | [facility] | | | | | | Floor [place], [place] | | | | | | [address] | | | | | | [phone] | | | +--------+---------+ + + + [...]
--- OUTSIDE RECORDS SUMMARY | ~2019-09-25 | XMS | Encounter Summary ---
Demographics + + + | Address | [address] | | | [place] [address] | + + + | Home Phone | | + + + | Preferred Language | Unknown | + + + | Marital Status | Single | + + + | Bahai Affiliation | NRP | + + + | Race | Black or | + + + | Ethnic Group | Not or | + + + Author + + + | Author | [facility] [email or web address] [facility] | + + + | Organization | [facility] | + + + | Address | Unknown | + + + | Phone | Unavailable | + + + Support + + +---------+ + | Name | Relationship | Address | Phone | + + +---------+ + | Shyam Mcdonald | ECON | Unknown | | + + +---------+ + Care Team Providers + +------+ + | Care Branch Sales Manager Name | Role | Phone | + +------+ + | No Pcp Per Patient | PCP | Unavailable | + +------+ + Encounter Details +--------+ + + + + | Date | Type | Department | Care Team | Description | +--------+ + + + + | 03/06/ | Pharmacy | Pharmacy @ [facility] | | | | 2019 | Visit | [address] | | | | | | [address] Mailcode: | | | | | | [facility] | | | | | | and Healing, | | | | | | Building [address] | | | | | | [place], [place] | | | | | | [address] | | | +--------+ + + + [...]
--- OUTSIDE RECORDS SUMMARY | ~2019-09-25 | XMS | Encounter Summary ---
Demographics + + + | Address | [address] | | | [place] [address] | + + + | Home Phone | | + + + | Preferred Language | Unknown | + + + | Marital Status | Single | + + + | Mormon Affiliation | NRP | + + + | Race | Black or | + + + | Ethnic Group | Not or | + + + Author + + + | Author | [email or web address] | + + + | Organization | [facility] | + + + | Address | Unknown | + + + | Phone | Unavailable | + + + Support + + +---------+ + | Name | Relationship | Address | Phone | + + +---------+ + | Shyam Mcdonald | ECON | Unknown | | + + +---------+ + Care Team Providers + +------+ + | Care National Account Representative Name | Role | Phone | + [...] | | | | | | | [place], [place] | | | | | | | [address] | | | | | | | Phone: | | | | | | | [phone] | | | | | | | Fax: | | | | | | | [phone] | + +--------+ + + + + Encounter Details +--------+---------+ + + + | Date | Type | Department | Care Team | Description | +--------+---------+ + + + | 02/21/ | Office | [facility] Orthopaedics | Miroslava Urbina | Rupture of anterior | | 2019 | Visit | & Rehabilitation | MD Abdi Chaudh[address] | cruciate ligament of | | | | [address] | Ave [facility] [place] | right knee, initial | | | | [place], [place] | [address] | encounter (Primary | | | | [address] | [phone] | Dx); Pain in both | | | | [phone] | | knees, unspecified | | | [...] evaluated him with Dr. Louie in the [employer] [facility] training room, and we obtained an [...] No SH: Arnie is single, student at [employer]. Lives with roommates. Tobacco: None. EtOH: [...] file Gets together: Not on file Attends orthodoxy service: Not on file Active member of [...] ed by Micah Valiente. Miroslava Urbina MD [facility] [place] Department of Orthopaedics and Rehabilitation Division of [...] | February 05, 2019 FINDINGS: Limited, single [place] view | RADIOLOGY VOICE | | demonstrate [...] 05, 2019 FINDINGS: Limited, single | | [place] view demonstrate no significant joint space narrowing, [...] | 02/21/2019 11:16 AM | |Limited, single [place] demonstrate no significant joint space narrowing, [...]
--- OUTSIDE RECORDS SUMMARY | ~2019-09-25 | XMS | Encounter Summary ---
Demographics + + + | Address | [address] | | | [place] [address] | + + + | Home Phone | | + + + | Preferred Language | Unknown | + + + | Marital Status | Single | + + + | Advent Affiliation | NRP | + + + [...] Team Providers + +------+ + | Care [employer]o [employer] Name | Role | Phone | + [...]
--- OUTSIDE RECORDS SUMMARY | ~2019-09-25 | XMS | Encounter Summary ---
Demographics + + + | Address | [address] | | | [place] [address] | + + + | Home Phone [...] | + + +---------+ + | Shyam Mdconald | ECON | Unknown | | + + +---------+ + Care Team Providers + +------+ + | Care Retail Parts Professional Name | Role | Phone | + [...]
--- OUTSIDE RECORDS SUMMARY | ~2019-09-25 | XMS | Encounter Summary ---
Demographics + + + | Address | [address] | | | [place] [address] | + + + | Home Phone | | + + + | Preferred Language | Unknown | + + + | Marital Status | Single | + + + | Moravian Affiliation | NRP | + + + | Race | Black or | + + + | Ethnic Group | Not or | + + + Author + + + | Author | [facility] [employer] [facility] | + + + | Organization | [facility] | + + + | Address | Unknown | + + + | Phone | Unavailable | + + + Support + + +---------+ + | Name | Relationship | Address | Phone | + + +---------+ + | Shyam Mcdonald | ECON | Unknown | | + + +---------+ + Care Team Providers + +------+ + | Care Softball Umpire Name | Role | Phone | + +------+ + | No Pcp Per Patient | PCP | Unavailable | + +------+ + Encounter Details +--------+ + + + + | Date | Type | Department | Care Team | Description | +--------+ + + + + | 02/21/ | Hospital | Radiology at | Miroslava Urbina | | | 2019 | Encounter | [place] [address] | MD Jet [address] | | | | | [address] | [place], [place] | | | | | [place] | [address] | | | | | [address] | [phone] | | | | | [phone] | | | +--------+ + + + [...] +--------+ + + + | X-RAY KNEE 1 VIEWS | Routin | 02/21/2019 | Pain in both | Results for this | | BILATERAL | e | 11:14 AM | knees, unspecified | procedure are in the | | | | PDT | chronicity | results section. | + +--------+ + + + documented in this encounter Results X-RAY KNEE 1 VIEWS BILATERAL (02/21/2019 11:14 AM PDT) + + | Specimen | + + | | + + + + + | Narrative | Performed At | + + + | EXAM: KNEE 1 VIEW BILATERAL HISTORY: knee pain COMPARISON: | [facility] | | February 05, 2019 FINDINGS: Limited, single [place] view | RADIOLOGY VOICE | | demonstrate [...] 05, 2019 FINDINGS: Limited, single | | [place] view demonstrate no significant joint space narrowing, [...] | 02/21/2019 11:16 AM | |Limited, single [place] view demonstrate no significant joint space narrowing, [...] + | Diagnosis | + + | Pain in both knees, unspecified chronicity | + + documented in this encounter"
--- OUTSIDE RECORDS SUMMARY | ~2019-09-25 | XMS | Encounter Summary ---
Demographics + + + | Address | [address] | | | [place] [address] | + + + | Home Phone [...] Team Providers + +------+ + | Care Dental Instructor Name | Role | Phone | [...]
--- OUTSIDE RECORDS SUMMARY | ~2019-09-25 | XMS | Encounter Summary ---
Demographics + + + | Address | [address] | | | [place] [address] | + + + | Home Phone [...] + + | Author | [facility] | + + + | Organization | [facility] | + + + | Address | Unknown | + + + | Phone | Unavailable | + + + Support + + +---------+ + | Name | Relationship | Address | Phone | + + +---------+ + | Shyam Mcdonald | ECON | Unknown | | + + +---------+ + Care Team Providers + +------+ + | Care Content Coordinator Name | Role | Phone | + [...] | 2020 | on | Medicine at [facility] [address] | [address] | | | | | [address] | [address] | | | | | [place], [place] | [place], [place] | | | | | [address] | [address] | | | | | [phone] | [phone] | | | | | | | [...]
--- OUTSIDE RECORDS SUMMARY | ~2019-09-25 | XMS | Encounter Summary ---
Demographics + + + | Address | [address] | | | [place] [address] | + + + | Home Phone [...] Team Providers + +------+ + | Care Environmental Health Nurse Name | Role | Phone | [...]
--- OUTSIDE RECORDS SUMMARY | ~2019-09-25 | XMS | Encounter Summary ---
Demographics + + + | Address | [address] | | | [place] [address] | + + + | Home Phone [...] Team Providers + +------+ + | Care User Interface Developer Name | Role | Phone | + [...]
--- OUTSIDE RECORDS SUMMARY | ~2019-09-25 | XMS | Encounter Summary ---
Demographics + + + | Address | [address] | | | [place] [address] | + + + | Home Phone | | + + + | Preferred Language | Unknown | + + + | Marital Status | Single | + + + | Confucianism Affiliation | NRP | + + + | Race | Black or | + + + | Ethnic Group | Not or | + + + Author + + + | Author | [facility] | + + + | Organization | [facility] | + + + | Address | Unknown | + + + | Phone | Unavailable | + + + Support + + +---------+ + | Name | Relationship | Address | Phone | + + +---------+ + | Shyam Mcdonald | ECON | Unknown | | + + +---------+ + Care Team Providers + +------+ + | Care Money Counter Name | Role | Phone | + [...] | | | | anterior | MD [address] | [address] | | | | | cruciate | [address] | | | | | ligament of | [address] | Research | | | | | right knee, | [place], [place] | [place] | | | | | initial | [address] | [place], [place] | | | | | encounter | Phone: | [address] | | | | | Procedures | [phone] | Phone: | | | | | MRI KNEE | Fax: | [phone] | | | | | RIGHT WO | [phone] | Fax: | | | | | CONTRAST ME | | [phone] | | | | | MRI LOWER [...] | | cruciate | [address] [place] | | | | | ligament of | [address] Castillo | Research | | | | | right knee, | [facility] | | | | | initial | [address] | [place], [place] | | | | | encounter | Phone: | [address] | | | | | Procedures | [phone] | Phone: | | | | | MRI KNEE | Fax: | [phone] | | | | | RIGHT WO | [phone] | Fax: | | | | | CONTRAST ME | | [phone] | | | | | MRI LOWER [...] | 2019 | Encounter | Services at [facility] | [address] | | | | | [address] | [address] | | | | | [place] Delgado | [place], [place] | | | | | [facility] | [address] | | | | | [place], [place] | [phone] | | | | | [address] | | | | | | [phone] | | | +--------+ + + + [...] Note | + + | Service Account, Pusher Res In Interface - 02/19/2019 4:22 PM [...]
--- OUTSIDE RECORDS SUMMARY | ~2019-09-25 | XMS | Encounter Summary ---
Demographics + + + | Address | [address] | | | [place] [address] | + + + | Home Phone [...] Author + + + | Author | [facility] [facility] | + + + | Organization | [facility] [facility] | + + + | Address | Unknown | + + + | Phone | Unavailable | + + + Support + + +---------+ + | Name | Relationship | Address | Phone | + + +---------+ + | Shyam Mcdonald | ECON | Unknown | | + + +---------+ + Care Team Providers + +------+ + | Care Box Sorter Name | Role | Phone | [...] [address] | | | | | [facility] | [facility] [address] | | | | | [address] | [facility] [place] | | | | | Mailcode: CH3P | [address] | | | | | [facility] | | | | | | and Healing, | | | | | | [address] | | | | | | Floor [facility] [place] | | | | | | [address] | | | | | | [phone] | | | +--------+ + + + [...]
--- OUTSIDE RECORDS SUMMARY | ~2019-09-25 | XMS | Encounter Summary ---
Demographics + + + | Address | [address] | | | [place] [address] | + + + | Home Phone | | + + + | Preferred Language | Unknown | + + + | Marital Status | Single | + + + | Hindu Affiliation | NRP | + + + [...] Team Providers + +------+ + | Care Wellness Trainer Name | Role | Phone | + +------+ + | No Pcp Per Patient | PCP | Unavailable | + +------+ + Encounter Details +--------+--------+ + + + | Date | Type | Department | Care Team | Description | +--------+--------+ + + + | 06/14/ | Travel | | | | | [...]
--- OUTSIDE RECORDS SUMMARY | ~2019-09-25 | XMS | Encounter Summary ---
Demographics + + + | Address | [address] | | | [place] [address] | + + + | Home Phone [...] Author + + + | Author | [facility] | + + + | Organization | [facility] | + + + | Address | Unknown | + + + | Phone | Unavailable | + + + Support + + +---------+ + | Name | Relationship | Address | Phone | + + +---------+ + | Shyam Mcdonald | ECON | Unknown | | + + +---------+ + Care Team Providers + +------+ + | Care Parts Counterman Name | Role | Phone | + [...] | | | | ligament of | [place], [place] | [address] | | | | | right knee, | [address] | for Health | | | | | initial | Phone: | and Healing, | | | | | encounter | [phone] | [address], | | | | | Procedures | Fax: | [address] | | | | | PHYSICAL | [phone] | [place], [place] | | | | | THERAPY | | [address] | | | | | REFERRAL | | Phone: | | | | | | | [phone] | | | | | | | Fax: | | | | | | | [phone] | + +--------+ + + + + Encounter Details +--------+---------+ + + + | Date | Type | Department | Care Team | Description | +--------+---------+ + + + | 07/17/ | Office | [facility] Physical | Monae Ureña, | Rupture of anterior | | 2019 | Visit | Therapy Services at | PT [address] [facility] | cruciate ligament of | | | | [facility] | [facility] | right knee, | | | | [address] | [facility] [place] | subsequent encounter | | | | Mailcode: [id number] | [phone] | (Primary Dx) | | | | [facility] | | | | | | and Healing, | | | | | | [address] | | | | | | Floor [place], [place] | | | | | | [address] | | | | | | [phone] | | | +--------+---------+ + + + [...] different fr om the original. Insurance: Payor: [employer] / Plan: Krux / Product Type: PPO / Non-Medicare Procedure: [...] hip strengthening Therapeutic Exercise/Home program Access Code: [email or web address] URL: [email or web address] Date: 07/17/2019 Prepared by: Monae Ureña Exercises Static Lunge - 10 reps - 3 sets - 1x daily - 7x weekly Forward Step Downs - 10 reps - 3 sets - 1x daily - 7x weekly Single Leg Quarter Squat with Beninese Ball at Wall - 10 reps - [...] change in their status. MONAE UREÑA, PT [facility] PHYSICAL THERAPY SERVICES AT [address] Mailcode: [address] [address] Scheduled Appointment time: 12:00 PM [...] | + +--------+ + + + | [place] [facility] | Routin | 07/17/2019 | Rupture [...]
--- OUTSIDE RECORDS SUMMARY | ~2019-09-25 | XMS | Encounter Summary ---
Demographics + + + | Address | [address] | | | [place] [address] | + + + | Home Phone [...] + + | Author | [facility] | + + + | Organization | [facility] | + + + | Address | Unknown | + + + | Phone | Unavailable | + + + Support + + +---------+ + | Name | Relationship | Address | Phone | + + +---------+ + | Shyam Mcdonald | ECON | Unknown | | + + +---------+ + Care Team Providers + +------+ + | Care Customer Service Driver Name | Role | Phone | + +------+ + | No Pcp Per Patient | PCP | Unavailable | + +------+ + Encounter Details +--------+ + + + + | Date | Type | Department | Care Team | Description | +--------+ + + + + | 05/28/ | Abstract | [facility] | Rylee, | | | 2019 | | Clinics at S | MD [address] | | | | | [facility] | [address] [place], | | | | | for Health and | [place] [address] | | | | | Healing [address] | [phone] | | | | | [place] | | | | | | [address] | | | | | | [phone] | | | +--------+ + + + [...]
--- OUTSIDE RECORDS SUMMARY | ~2019-09-25 | XMS | Encounter Summary ---
Demographics + + + | Address | [address] | | | [place] [address] | + + + | Home Phone | | + + + | Preferred Language | Unknown | + + + | Marital Status | Single | + + + | Yarsanism Affiliation | NRP | + + + | Race | Black or | + + + | Ethnic Group | Not or | + + + Author + + + | Author | [facility] | + + + | Organization | [facility] | + + + | Address | Unknown | + + + | Phone | Unavailable | + + + Support + + +---------+ + | Name | Relationship | Address | Phone | + + +---------+ + | Shyam Mcdonald | ECON | Unknown | | + + +---------+ + Care Team Providers + +------+ + | Care Ditch Rider Name | Role | Phone | + [...] | | | | anterior | MD [address] | [address] | | | | | cruciate | [address] | | | | | ligament of | [address] | Research | | | | | right knee, | [place], [place] | [place] | | | | | initial | [address] | [place], [place] | | | | | encounter | Phone: | [address] | | | | | Procedures | [phone] | Phone: | | | | | MRI KNEE | Fax: | [phone] | | | | | RIGHT WO | [phone] | Fax: | | | | | CONTRAST ME | | [phone] | | | | | MRI LOWER | | | | | | | EXTREM JT, | | | | | | | W/O CONTRAST | | | +--------+--------+ + + + + Encounter Details +--------+ + + + + | Date | Type | Department | Care Team | Description | +--------+ + + + + | 02/05/ | Documentati | [facility] Primary Care | David Louie, | | | 2019 | on | at [address] | [address] [facility] | | | | | [address] [facility] | [address] | | | | | [facility] | [place], [place] | | | | | [place], [place] | [address] | | | | | [address] | [phone] | | | | | [phone] | | | +--------+ + + + [...] 4:21 PM | | | Preliminary: Martin Hlal MD 02/19/2019 9:44 AM Dictation | | [...]
--- OUTSIDE RECORDS SUMMARY | ~2019-09-25 | XMS | Encounter Summary ---
Demographics + + + | Address | [address] | | | [place] [address] | + + + | Home Phone [...] Author + + + | Author | [facility] | + + + | Organization | [facility] | + + + | Address | Unknown | + + + | Phone | Unavailable | + + + Support + + +---------+ + | Name | Relationship | Address | Phone | + + +---------+ + | Shyam Mcdonald | ECON | Unknown | | + + +---------+ + Care Team Providers + +------+ + | Care Speeder Hand Name | Role | Phone | [...] | | | | right knee, | [address] | for Health | | | | | initial | Phone: | and Healing, | | | | | encounter | [phone] | Building 1, | | | | | Procedures | Fax: | [address] Floor | | | | | PHYSICAL | [phone] | [facility] [place] | | | | | THERAPY | | [address] | | | | | REFERRAL | | Phone: | | | | | | | [phone] | | | | | | | Fax: | | | | | | | [phone] | + +--------+ + + + + [...] | | | [facility] | [place] [address] | right knee, | | | | [address] | [phone] | subsequent encounter | | | | Mailcode: CH3P | | (Primary Dx) | | | | [place] for [facility] | | | | | | and Healing, | | | | | | [address] | | | | | | Floor [place], [place] | | | | | | [address] | | | | | | [phone] | | | +--------+---------+ + + + [...] LEG TRX squats Weighted lunges Back squat Vault Dragon Band walks (ministerio burks) Participate in team workouts per Noah Electronically signed by Jhon Roach PT at 08/2018 12:59 PM PST documented in this encounter Progress Notes Jhon Roach, PT - 04/25/2019 12:15 PM PSTFormatting of this note might be different fr om the original. 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 SUBJECTIVE: 7 weeks s/p procedure Sometimes wearing the brace (at pentecostal playing with kids) Feels that the knee sometimes wants to snap backwards due to quad weakness OBJECTIVE: Therapeutic Exercise SwapM[employer] Synthace 22# Back squat bar only 3 sets Discussed winter strengthening program (will have gym access) Including team strength/core/mobility plan Cardio: Recommendations 30-60 min Apply interval training schedule to bike/elliptical/stair master/swim Strength traininx/wk (reps: ) Goals: increase strength to pass isokinetic test (wk 12) Increased weight, decrease reps SINGLE LEG leg press or SINGLE LEG TRX squats Weighted lunges Back squat Lawn Synthace Band walks (ministerio burks) ASSESSMENT: Arnie is [...] change in their status. JHON ROACH PT [facility] PHYSICAL THERAPY SERVICES AT [address] Mailcode: [address] [address] Scheduled Appointment time: 12:15 PM [...] encounter Next progress report 05/13/2019 Insurance: Payor: [employer] / Plan: [employer] / Product Type: PPO / Number visits [...] + | [place] THERAPEUTIC | Routin | 04/25/2019 | Rupture [...]
--- OUTSIDE RECORDS SUMMARY | ~2019-09-25 | XMS | Encounter Summary ---
Demographics + + + | Address | [address] | | | [place] [address] | + + + | Home Phone | | + + + | Preferred Language | Unknown | + + + | Marital Status | Single | + + + | Confucianist Affiliation | NRP | + + + | Race | Black or | + + + | Ethnic Group | Not or | + + + Author + + + | Author | [facility] | + + + | Organization | [facility] | [...] Team Providers + +------+ + | Care Console Attendant Name | Role | Phone | + +------+ + | No Pcp Per Patient | PCP | Unavailable | + +------+ + Encounter Details +--------+ + + + + | Date | Type | Department | Care Team | Description | +--------+ + + + + | 02/05/ | Documentati | [facility] Primary Care | David Louie, | | | 2019 | on | at [place] | [address] | | | | | [address] [facility] | [facility] | | | | | [facility] | [place], [place] | | | | | [place], [place] | [address] | | | | | [address] | [phone] | | | | | [phone] | | | +--------+ + + + [...] as of this encounter Results X-RAY KNEE 3 VIEWS [...]
--- OUTSIDE RECORDS SUMMARY | ~2019-09-25 | XMS | Encounter Summary ---
Demographics + + + | Address | [address] | | | [place] [address] | + + + | Home Phone [...] + +------+ + | Care Director Of Customer Acquisition Name | Role | Phone | + [...]
--- OUTSIDE RECORDS SUMMARY | ~2019-09-25 | XMS | Encounter Summary ---
Demographics + + + | Address | [address] | | | [place] [address] | + + + | Home Phone | | + + + | Preferred Language | Unknown | + + + | Marital Status | Single | + + + | Pentecostalism Affiliation | NRP | + + + | Race | Black or | + + + | Ethnic Group | Not or | + + + Author + + + | Author | [facility] [address] [facility] | + + + | Organization | [facility] | + + + | Address | Unknown | + + + | Phone | Unavailable | + + + Support + + +---------+ + | Name | Relationship | Address | Phone | + + +---------+ + | Shyam Mcdonald | ECON | Unknown | | + + +---------+ + Care Team Providers + +------+ + | Care District Manager Primary Care Sales Name | Role | Phone | + [...] | | | | right knee, | [address] | for Health | | | | | initial | Phone: | and Healing, | | | | | encounter | [phone] | Building 1, | | | | | Procedures | Fax: | [address] Floor | | | | | PHYSICAL | [phone] | [facility] [place] | | | | | THERAPY | | [address] | | | | | REFERRAL | | Phone: | | | | | | | [phone] | | | | | | | Fax: | | | | | | | [phone] | + +--------+ + + + + Encounter Details +--------+---------+ + + + | Date | Type | Department | Care Team | Description | +--------+---------+ + + + | 03/28/ | Office | [facility] | Jhon Roach, | Rupture of anterior | | 2019 | Visit | Therapy Services at | PT [address] | cruciate ligament of | | | | [facility] | [place] [address] | right knee, | | | | [address] | [phone] | subsequent encounter | | | | Mailcode: CH3P | | (Primary Dx) | | | | [place] for [facility] | | | | | | and Healing, | | | | | | Building [address], [address] | | | | | | Floor [place], [place] | | | | | | [address] | | | | | | [phone] | | | +--------+---------+ + + + [...] Instructions Patient Instructions Jhon Roach, PT - 03/28/2019 12:15 PM PST Home exercise program Banded hip work sidelying hip lifts Straight leg raise with cuff weight Lateral step down Balance Plank series Squats Shuttle Report back on machines at home gym Electronically signed by Jhon Roach, PT at 019 1:00 PM PST documented in this encounter Progress Notes Jhon Roach, PT - 03/28/2019 12:15 PM PSTFormatting of this note might be different fr om the original. Insurance: Payor: [facility] / Plan: [facility] / Product Type: PPO [...] Goals: return to Div 1 athletetics SUBJECTIVE 03/28/2019 Things are going well, zip line removed Reports continued numbness on anterior lee ROM coming along Feels his quad strength has improved TR rehab: bike, NMES, ice OBJECTIVE: Posture/alignment/observation: wearing drop down knee brace unlocked Well healed incision, some puckering at incision Pt instructed on self scar mobs Gait: wearing brace, no AD, improved gait speed Knee ROM: 0-0-115 Patella Mobility: good, not painful Quad set: good SLR: no lag Therapeutic Exercise Upright bike x 5 min warm up Elliptical senior trainer trial x 5 min, VC for proper form, upright posture Supine SLR with 4# cuff weight 2 x 20 reps Sidelying hip abd 4# 2 x 20 reps SINGLE LEG HS curl 20# 2 x 15 reps SAQ 0-30 deg 10# 2 x 20 reps Lateral step down 2 x 10 reps Forward step down x 10 reps Game Ready Intermittent pneumatic compression with elevation x15 min Current home exercise program: Banded hip work sidelying hip lifts Straight leg raise with cuff weight Lateral step down Balance Plank series Squats Shuttle ASSESSMENT: Arnie is post-op R ACL repair with patellar tendon autograft 03/06/19, post-op course compl icated by DVT Appropriately fatigued with resistive exercise today Challenged with glut med strengthening today Poor step down technique SHORT-TERM GOALS, discussed with patient, due in [...] [facility] AT [address] Mailcode: [address] [address] Scheduled Appointment time: 12:15 PM [...] report 05/13/2019 Insurance: Payor: JOSE / Plan: [employer] / Product Type: PPO / Number visits authorized: - Number visits used: 3 Outcome Measure 03/14/2019 Lower Extremity Functional Scale [...] + | AL THERAPEUTIC | Routin | 03/28/2019 | Rupture of | | | EXERCISES | e | 1:13 PM | anterior cruciate | | | [...]
--- OUTSIDE RECORDS SUMMARY | ~2019-09-25 | XMS | Encounter Summary ---
Demographics + + + | Address | [address] | | | [place] [address] | + + + | Home Phone | | + + + | Preferred Language | Unknown | + + + | Marital Status | Single | + + + | Anglican Affiliation | NRP | + + + | Race | Black or | + + + | Ethnic Group | Not or | + + + Author + + + | Author | [facility] | + + + | Organization | [facility] | + + + | Address | Unknown | + + + | Phone | Unavailable | + + + Support + + +---------+ + | Name | Relationship | Address | Phone | + + +---------+ + | Shyam Mcdonald | ECON | Unknown | | + + +---------+ + Care Team Providers + +------+ + | Care Patient Partner Name | Role | Phone | + [...] | | | | right knee, | [address] | for Health | | | | | initial | Phone: | and Healing, | | | | | encounter | [phone] | Building 1, | | | | | Procedures | Fax: | [address] Floor | | | | | PHYSICAL | [phone] | [facility] [place] | | | | | THERAPY | | [address] | | | | | REFERRAL | | Phone: | | | | | | | [phone] | | | | | | | Fax: | | | | | | | [phone] | + +--------+ + + + + [...] cruciate ligament of | | | | [facility] | [place] [address] | right knee, | | | | [address] | [phone] | subsequent encounter | | | | Mailcode: CH3P | | (Primary Dx) | | | | [place] for [facility] | | | | | | and Healing, | | | | | | Building [address], [address] | | | | | | Floor [place], [place] | | | | | | [address] | | | | | | [phone] | | | +--------+---------+ + + + [...] different fr om the original. Insurance: Payor: [facility] / Plan: [facility] / Product Type: PPO / Non-Medicare Procedure: [...] bike x 5 min warm up Elliptical animal attendants and trainers trial x 5 min, VC for proper [...] change in their status. JHON ROACH, PT [facility] PHYSICAL THERAPY SERVICES AT [address] Mailcode: [address] [address] Scheduled Appointment time: 12:15 PM [...] report 05/13/2019 Insurance: Payor: JOSE / Plan: [employer] / Product Type: PPO / Number visits [...] + | [place] THERAPEUTIC | Routin | 03/28/2019 | Rupture [...]
--- OUTSIDE RECORDS SUMMARY | ~2019-09-25 | XMS | Encounter Summary ---
Demographics + + + | Address | [address] | | | [place] [address] | + + + | Home Phone | | + + + | Preferred Language | Unknown | + + + | Marital Status | Single | + + + | Presybeterian Affiliation | NRP | + + + | Race | Black or | + + + | Ethnic Group | Not or | + + + Author + + + | Author | [facility] | + + + | Organization | [facility] | [...] Team Providers + +------+ + | Care Cnc Set Up Operator Name | Role | Phone | [...] | | 2019 | Encounter | [place] [address] | MD Jet [address] | | | | | [address] | [place], [place] | | | | | [place] | [address] | | | | | [address] | [phone] | | | | | [phone] | | | +--------+ + + + [...] | February 05, 2019 FINDINGS: Limited, single Wells view | RADIOLOGY VOICE | | demonstrate [...] 05, 2019 FINDINGS: Limited, single | | Wells view demonstrate no significant joint space narrowing, [...] | 02/21/2019 11:16 AM | |Limited, single Wells view demonstrate no significant joint space narrowing, [...]
--- OUTSIDE RECORDS SUMMARY | ~2019-09-25 | XMS | Encounter Summary ---
Demographics + + + | Address | [address] | | | [place] [address] | + + + | Home Phone | | + + + | Preferred Language | Unknown | + + + | Marital Status | Single | + + + | Voodoo Affiliation | NRP | + + + | Race | Black or | + + + | Ethnic Group | Not or | + + + Author + + + | Author | [facility] [employer] [facility] | + + + | Organization | [facility] [employer] [facility] | + + + | Address | Unknown | + + + | Phone | Unavailable | + + + Support + + +---------+ + | Name | Relationship | Address | Phone | + + +---------+ + | Shyam Mcdonald | ECON | Unknown | | + + +---------+ + Care Team Providers + +------+ + | Care Restaurant Team Member Name | Role | Phone | + [...] + + | 03/06/ | Hospital | [facility] | Miroslava Urbina | | | 2019 | Encounter | [address] | MD Jet [address] | | | | | [place] Mailcode: [facility] | [place], [place] | | | | | [facility] | [address] | | | | | Health and Healing, | [phone] | | | | | [place] [address] | | | | | | [place], [place] | | | | | | [address] | | | | | | [phone] | | | +--------+ + + + [...] stoperative protocol. Diet: Resume usual diet Call [phone] and ask for the orthopedic resident chief arson division for difficulty breathing or u nusual shortness [...] hours, weekends and holidays, call the Hospital Design Technology Professor at [phone] and asked to have the doctor who [...]
--- OUTSIDE RECORDS SUMMARY | ~2019-09-25 | XMS | Encounter Summary ---
Demographics + + + | Address | [address] | | | [place] [address] | + + + | Home Phone | | + + + | Preferred Language | Unknown | + + + | Marital Status | Single | + + + | Adventist Affiliation | NRP | + + + | Race | Black or | + + + | Ethnic Group | Not or | + + + Author + + + | Author | [facility] | + + + | Organization | [facility] [employer] [facility] | + + + | Address | Unknown | + + + | Phone | Unavailable | + + + Support + + +---------+ + | Name | Relationship | Address | Phone | + + +---------+ + | Shyam Mcdonald | ECON | Unknown | | + + +---------+ + Care Team Providers + +------+ + | Care Rn Cardiac Rehab Name | Role | Phone | + +------+ + | No Pcp Per Patient | PCP | Unavailable | + +------+ + Reason for Referral Consultation (Routine) + +---------+ + + + [...] | CONSULT TO | [address] | [place], [place] | | | | | HEMATOLOGY / | [facility], [place] | [address] | | | | | ONCOLOGY | [address] | Phone: | | | | | [place] NEW | Phone: | [phone] | | | | | PATIENT | [phone] | Fax: | | | | | LEVEL V [place] | Fax: | [phone] | | | | | EST PATIENT | [phone] | | | | | | LEVEL V | | | + +---------+ + + + + Reason for Visit +--------+ + | Reason | Comments | +--------+ + | Other | Post-Op Concerns | +--------+ + Encounter Details +--------+ + + + + | Date | Type | Department | Care Team | Description | +--------+ + + + + | 03/14/ | Telephone | Orthopaedics | Miroslava Urbina | Other (Post-Op | | 2019 | | Faculty at [facility] | MD [address] | Concerns) | | | | for Health and | [place], [place] | | | | | Healing [address] | [address] | | | | | Ave Mailcode: | [phone] | | | | | [facility] | | | | | | Health and Healing, | | | | | | [facility] | | | | | | Floor [place], [place] | | | | | | [address] | | | | | | [phone] | | | +--------+ + + + [...] as of this encounter Plan of Treatment + +---------+--------+ + + | Name | Type | Priori | Associated Diagnoses | Order Schedule | | | | ty | | | + +---------+--------+ + + | VASC LAB VENOUS | Imaging | Urgent | Right calf pain | Expected: | | DUPLEX LOWER | | | | 03/14/2019, Expires: | | EXTREMITY RT | | | | 04/14/2020 | + +---------+--------+ + + documented as of this encounter Results VASC LAB VENOUS DUPLEX [...] Note | + + | Service Account, PreApps Res In Interface - 03/14/2019 2:27 PM [...] | + + | Right calf pain - Primary | + + documented in this encounter"
--- OUTSIDE RECORDS SUMMARY | ~2019-09-25 | XMS | Encounter Summary ---
Demographics + + + | Address | [address] | | | [place] [address] | + + + | Home Phone [...] + | Author | [facility] | + + + | Organization | [facility] | + + + | Address | Unknown | + + + | Phone | Unavailable | + + + Support + + +---------+ + | Name | Relationship | Address | Phone | + + +---------+ + | Shyam Mcdonald | ECON | Unknown | | + + +---------+ + Care Team Providers + +------+ + | Care Sql Manager Name | Role | Phone | [...] | | | | ligament of | [place], [place] | [address] | | | | | right knee, | [address] | for Health | | | | | initial | Phone: | and Healing, | | | | | encounter | [phone] | Building 1, | | | | | Procedures | Fax: | [address] Floor | | | | | PHYSICAL | [phone] | [place], [place] | | | | | THERAPY | | [address] | | | | | REFERRAL | | Phone: | | | | | | | [phone] | | | | | | | Fax: | | | | | | | [phone] | + +--------+ + + + + Encounter Details +--------+---------+ + + + | Date | Type | Department | Care Team | Description | +--------+---------+ + + + | 04/16/ | Office | [facility] Physical | Monae Ureña, | Rupture of anterior | | 2019 | Visit | Therapy Services at | PT [address] [facility] | cruciate ligament of | | | | [facility] | [facility] | right knee, | | | | [address] | [facility] [place] | subsequent encounter | | | | Mailcode: CH3P | [address] | (Primary Dx) | | | | [facility] | | | | | | and Healing, | | | | | | Building [address], [address] | | | | | | Floor [place], [place] | | | | | | [address] | | | | | | [phone] | | | +--------+---------+ + + + [...] different fr om the original. Insurance: Payor: [facility] / Plan: [facility] / Product Type: O / Non-Medicare Procedure: [...] change in their status. MONAE UREÑA, PT [facility] PHYSICAL THERAPY SERVICES AT [address] Mailcode: [address] [address] Scheduled Appointment time: 9:45 AM [...] encounter Next progress report 05/13/2019 Insurance: Payor: [employer] / Plan: [employer] / Product Type: PPO / Number visits [...] + | [place] THERAPEUTIC | Routin | 04/16/2019 | Rupture [...]
--- OUTSIDE RECORDS SUMMARY | ~2019-09-25 | XMS | Encounter Summary ---
Demographics + + + | Address | [address] | | | [place] [address] | + + + | Home Phone [...] Team Providers + +------+ + | Care In Service Education Teacher Name | Role | Phone | + [...]
--- OUTSIDE RECORDS SUMMARY | ~2019-09-25 | XMS | Encounter Summary ---
Demographics + + + | Address | [address] | | | [place] [address] | + + + | Home Phone [...] + | Author | [facility] | + + + | Organization | [facility] [employer] [facility] | + + + | Address | Unknown | + + + | Phone | Unavailable | + + + Support + + +---------+ + | Name | Relationship | Address | Phone | + + +---------+ + | Shyam Mcdonald | ECON | Unknown | | + + +---------+ + Care Team Providers + +------+ + | Care Digital Marketing Program Manager Name | Role | Phone | + +------+ + | No Pcp Per Patient | PCP | Unavailable | + +------+ + Reason for Visit +---------+ + | Reason | Comments | +---------+ + | Post Op | | +---------+ + PROC - Outpatient Surgery [...] | | | right knee, | | [address] | | | | | initial | | Phone: | | | | | encounter | | [phone] | | | | | Other tear | | Fax: | | | | | of medial | | [phone] | | | | | meniscus, | [...] | | | | | | | FREIGHT CHECKER | | | | | | | KS KNEE | | | | | | | SCOPE,AID | | | | | | | ANT CRUCIATE | | | | | | | REPAIR KS | | | | | | | REMV TENDON | | | | | | | FOR GRAFT | | | | | | | KS KNEE | | | | | | | SCOPE,MED OR | | | | | | | LAT MENIS | | | | | | | REPAIR KS | | | | | | | ARTHROTOMY,O | | | | | | | PEN REPAIR | | | | | | | MENISCUS | | | +--------+--------+ + + + + Encounter Details +--------+---------+ + + + | Date | Type | Department | Care Team | Description | +--------+---------+ + + + | 05/28/ | Office | Orthopaedics | Nikunj Urbinaqueline | Rupture of anterior | | 2020 | Visit | Faculty at Center | MD Jet [address] | cruciate ligament of | | | | for Health and | [place], [place] | right knee, initial | | | | Healing [address] | [address] | encounter (Primary | | | | Ave Mailcode: | [phone] | Dx); Right knee | | | | [facility] | | pain, unspecified | | | | Health and Healing, | | chronicity | | | | [facility] | | | | | | Floor [place], [place] | | | | | | [address] | | | | | | [phone] | | | +--------+---------+ + + + [...] documented as of this encounter Progress Notes David Louie MD - 05/28/2019 8:15 AM PSTFormatting of this note might be different fro m the original. Diagnosis: 1) Right knee ACL tear; small undersurface crack of posterior horn medial meniscus, left in place 2) Postoperative DVT Interventions to date: 1) 03/06/19Right knee arthroscopy with ACL reconstruction using patellar tendon autograft 2) Xarelto therapy for DVT Review of interval history and current physical exam indicates that each is essentially unc hanged with the notable exceptions as described above and below. Subjective: - Has appt today with hematology, still taking Xarelto - No new complaints - No swelling, popping, clicking - Feels that he is getting strength back - Exercise: Stair master, elliptical, stationary bicycle EXAM: Gait: normal Skin and integument: well healed. 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 He has an appointment with hematology today to help guide duration of anticoagulation. Next step is to proceed with strengthening as he prepares for return to sport. Plan: - Continue rehab with PT and [employer]. - Nearly ready for biodex for strength assessment prior to return to running start - Follow up in training room for recheck in 3 months, or sooner if problems arise Javad Louie MD Primary Care Sports Medicine Fellow I personally interviewed and evaluated this patient. I agree with the fellow's findings an d plan of care as described. Miroslava Urbina MD [facility] [place] Department of Orthopaedics and Rehabilitation Division of Sports Medicine documented in thi s encounter Plan of Treatment Not on filedocumented as of this encounter Results X-RAY KNEE 4 VIEWS [...] Note | + + | Service Account, [employer] Res In Interface - 05/28/2019 9:04 AM [...] encounter - Primary | + + | Right knee pain, unspecified chronicity | + + documented in this encounter"
--- OUTSIDE RECORDS SUMMARY | ~2019-09-25 | XMS | Encounter Summary ---
Demographics + + + | Address | [address] | | | [place] [address] | + + + | Home Phone [...] + + | Author | [facility] | + + + | Organization | [facility] [facility] | + + + | Address | Unknown | + + + | Phone | Unavailable | + + + Support + + +---------+ + | Name | Relationship | Address | Phone | + + +---------+ + | Shyam Mcdonald | ECON | Unknown | | + + +---------+ + Care Team Providers + +------+ + | Care Analytics Manager Name | Role | Phone | + +------+ + | No Pcp Per Patient | PCP | Unavailable | + +------+ + Encounter Details +--------+ + + + + | Date | Type | Department | Care Team | Description | +--------+ + + + + | 02/05/ | Documentati | [facility] Primary Care | David Louie, | | | 2019 | on | at [place] | [address] | | | | | [address] [facility] | [facility] | | | | | [facility] | [place], [place] | | | | | [place], [place] | [address] | | | | | [address] | [phone] | | | | | [phone] | | | +--------+ + + + [...]
--- OUTSIDE RECORDS SUMMARY | ~2019-09-25 | XMS | Encounter Summary ---
Demographics + + + | Address | [address] | | | [place] [address] | + + + | Home Phone | | + + + | Preferred Language | Unknown | + + + | Marital Status | Single | + + + | Judaism Affiliation | NRP | + + + | Race | Black or | + + + | Ethnic Group | Not or | + + + Author + + + | Author | [facility] | + + + | Organization | [facility] [employer] [facility] | + + + | Address | Unknown | + + + | Phone | Unavailable | + + + Support + + +---------+ + | Name | Relationship | Address | Phone | + + +---------+ + | hSyam Mcdonald | ECON | Unknown | | + + +---------+ + Care Team Providers + +------+ + | Care Salesperson Women'S Dresses Name | Role | Phone | + +------+ + | No Pcp Per Patient | PCP | Unavailable | + +------+ + Encounter Details +--------+ + + + + | Date | Type | Department | Care Team | Description | +--------+ + + + + | 05/28/ | Abstract | [facility] | Rylee, | | | 2019 | | Clinics at S | MD [address] | | | | | [facility] | [place], | | | | | for Health and | [place] [address] | | | | | Healing [address] | [phone] | | | | | [place] | | | | | | [address] | | | | | | [phone] | | | +--------+ + + + [...]
--- OUTSIDE RECORDS SUMMARY | ~2019-09-25 | XMS | Encounter Summary ---
Demographics + + + | Address | [address] | | | [place] [address] | + + + | Home Phone [...] Author + + + | Author | [facility] | + + + | Organization | [facility] | + + + | Address | Unknown | + + + | Phone | Unavailable | + + + Support + + +---------+ + | Name | Relationship | Address | Phone | + + +---------+ + | Shyam Mcdonald | ECON | Unknown | | + + +---------+ + Care Team Providers + +------+ + | Care Ab Initio Etl Developer Name | Role | Phone | [...] | | | right knee, | | [address] | | | | | initial | | Phone: | | | | | encounter | | [phone] | | | | | Other tear | | Fax: | | | | | of medial | | [phone] | | | | | meniscus, | [...] | | | | | | | LEGAL RECORDS MANAGER | | | | | | | [place] KNEE | | | | | | | SCOPE,AID | | | | | | | ANT CRUCIATE | | | | | | | REPAIR [place] | | | | | | | REMV TENDON | | | | | | | FOR GRAFT | | | | | | | [place] KNEE | | | | | | | SCOPE,MED [place] | | | | | | | LAT MENIS | | | | | | | REPAIR [place] | | | | | | | [...] | | for Health and | [address] [place], [place] | right knee, initial | | | | Healing [address] | [address] | encounter (Primary | | | | Ave Mailcode: | [phone] | Dx); Right knee | | | | [facility] | | pain, unspecified | | | | Health and Healing, | | chronicity | | | | [facility] | | | | | | Floor [place], [place] | | | | | | [address] | | | | | | [phone] | | | +--------+---------+ + + + [...] abnormality, sabra re in good position Assessment: rAnie Mcdonald is a 24 y.o. [employer] X[employer]/Track [...] of care as described. Miroslava Urbina MD [facility] [place] Department of Orthopaedics and Rehabilitation Division of [...] Note | + + | Service Account, [employer] Res In Interface - 05/28/2019 9:04 AM [...]
--- OUTSIDE RECORDS SUMMARY | ~2019-09-25 | XMS | Encounter Summary ---
Demographics + + + | Address | [address] | | | [place] [address] | + + + | Home Phone [...] Team Providers + +------+ + | Care Hospitality Housekeeper Name | Role | Phone | + [...]
--- OUTSIDE RECORDS SUMMARY | ~2019-09-25 | XMS | Encounter Summary ---
Demographics + + + | Address | [address] | | | [place] [address] | + + + | Home Phone [...] + + + | Author | [facility] [employer] [facility] | + + + | Organization | [facility] [employer] [facility] | + + + | Address | Unknown | + + + | Phone | Unavailable | + + + Support + + +---------+ + | Name | Relationship | Address | Phone | + + +---------+ + | Shyam Mcdonald | ECON | Unknown | | + + +---------+ + Care Team Providers + +------+ + | Care Print Producer Name | Role | Phone | + [...] | | | right knee, | | [address] | | | | | initial | | Phone: | | | | | encounter | | [phone] | | | | | Other tear | | Fax: | | | | | of medial | | [phone] | | | | | meniscus, | [...] | | | | | | | SMALL PRODUCTS ASSEMBLER | | | | | | | [place] KNEE | | | | | | | SCOPE,AID | | | | | | | ANT CRUCIATE | | | | | | | REPAIR [place] | | | | | | | REMV TENDON | | | | | | | FOR GRAFT | | | | | | | [place] KNEE | | | | | | | SCOPE,MED OR | | | | | | | LAT MENIS | | | | | | | REPAIR [place] | | | | | | | ARTHROTOMY,O | | | | | | | PEN REPAIR | | | | | | | MENISCUS | | | +--------+--------+ + + + + Encounter Details +--------+---------+ + + + | Date | Type | Department | Care Team | Description | +--------+---------+ + + + | 04/16/ | Office | Orthopaedics | Nikunj Urbinaqueline | Rupture of anterior | | 2019 | Visit | Faculty at [facility] | MD [facility] [address] | cruciate ligament of | | | | for Health and | [address] [place], [place] | right knee, initial | | | | Healing [address] | [address] | encounter (Primary | | | | Ave Mailcode: | [phone] | Dx) | | | | [facility] | | | | | | Health and Healing, | | | | | | [facility] | | | | | | Floor [place], [place] | | | | | | [address] | | | | | | [phone] | | | +--------+---------+ + + + [...] documented as of this encounter Progress Notes iMroslava Urbina MD - 04/16/2019 8:55 AM PST Diagnosis: 1) Right knee ACL tear; small undersurface crack of posterior horn medial meniscus, left in place 2) Postoperative DVT Interventions to date: 1) 03/06/19 Right knee arthroscopy with ACL reconstruction using patellar tendon autograft 2) Xarelto therapy for DVT Review of interval history and current physical exam indicates that each is essentially unc hanged with the notable exceptions as described above and below. Subjective: Feels like he has been doing well since initiating Xarelto. Using brace intermi ttently and has been walking fine without it. Reports that physical therapy is going well. M inimal pain with mini-extension exercises. Has had a few episodes of feeling unstable withou t juanpablo buckling. EXAM: Gait: normal Skin and integument: clean and dry with no signs of infection, well healed. Range of motion: 0 to 125 Ligaments: Right Left Valgus 30 Symmetric with solid endpoint Symmetric with solid endpoint Varus 30 Symmetric with solid endpoint Symmetric with solid endpoint Gena 1 and A 1 and A Post Drawer Negative Negative Other: None Assessment: Progressing well s/p ACL reconstruction using patellar tendon autograft and mckeon bsequent DVT (on Xarelto). Excellent ROM and quad activation. Doing excellent on Xarelto s/p DVT. Plan: - continue rehab - continue xarelto and f/u with hematology - f/u in 6 weeks with X-rays (full set) I personally interviewed and evaluated this patient. I agree with the fellow's findings an d plan of care as described. Miroslava Urbina MD [facility] Department of Orthopaedics and Rehabilitation Division of Sports Medicine documented in thi s encounter Plan of Treatment Not on filedocumented as of this encounter Visit Diagnoses + + | Diagnosis | + + | Rupture of anterior cruciate ligament of right knee, initial encounter - Primary | + + documented in this encounter"
--- OUTSIDE RECORDS SUMMARY | ~2019-09-25 | XMS | Encounter Summary ---
Demographics + + + | Address | [address] | | | [place] [address] | + + + | Home Phone [...] + + + | Author | [facility] [employer] [facility] | + + + | Organization | [facility] [employer] [facility] | + [...] Team Providers + +------+ + | Care Vice President Of Product Marketing Name | Role | Phone | + [...] Rupture of | Epic Dept | Miroslava Chuadhary, | | | | | anterior | | [address] | | | | | cruciate | | [address] | | | | | ligament of | | [place], [place] | | | | | right knee, | | [address] | | | | | initial | | Phone: | | | | | encounter | | [phone] | | | | | Other tear | | Fax: | | | | | of medial | | [phone] | | | | | meniscus, | [...] | | | | | | | LEARNING SPECIALIST | | | | | | | [place] KNEE | | | | | | | SCOPE,AID | | | | | | | ANT CRUCIATE | | | | | | | REPAIR [place] | | | | | | | REMV TENDON | | | | | | | FOR GRAFT | | | | | | | [place] KNEE | | | | | | | SCOPE,MED [place] | | | | | | | LAT MENIS | | | | | | | REPAIR [place] | | | | | | | [...] | 2019 | Visit | Faculty at [facility] | MD [facility] [address] | cruciate ligament of | | | | for Health and | [address] [place], [place] | right knee, initial | | | | Healing [address] | [address] | encounter (Primary | | | | Ave Mailcode: | [phone] | Dx) | | | | [facility] | | | | | | Health and Healing, | | | | | | [facility] | | | | | | Floor [place], [place] | | | | | | [address] | | | | | | [phone] | | | +--------+---------+ + + + [...] documented as of this encounter Progress Notes Miroslava Urbina MD - 04/16/2019 8:55 AM PST [...] of care as described. Miroslava Urbina MD [facility] Department of Orthopaedics and Rehabilitation Division of Sports Medicine documented in thi s encounter Plan of Treatment Not on filedocumented as of this encounter Visit Diagnoses + + | Diagnosis | + + | Rupture of anterior cruciate ligament of right knee, initial encounter - Primary | + + documented in this encounter"
--- OUTSIDE RECORDS SUMMARY | ~2019-09-25 | XMS | Encounter Summary ---
Demographics + + + | Address | [address] | | | [place] [address] | + + + | Home Phone | | + + + | Preferred Language | Unknown | + + + | Marital Status | Single | + + + | Islam Affiliation | NRP | + + + | Race | Black or | + + + | Ethnic Group | Not or | + + + Author + + + | Author | [facility] [email or web address] [facility] | + + + | Organization | [facility] [employer] [facility] | + + + | Address | Unknown | + + + | Phone | Unavailable | + + + Support + + +---------+ + | Name | Relationship | Address | Phone | + + +---------+ + | Shyam Mcdonald | ECON | Unknown | | + + +---------+ + Care Team Providers + +------+ + | Care Pleat Taper Name | Role | Phone | + [...] | CONSULT TO | [address] | [place], [place] | | | | | HEMATOLOGY / | [facility], [place] | [address] | | | | | ONCOLOGY | [address] | Phone: | | | | | [place] NEW | Phone: | [phone] | | | | | PATIENT | [phone] | Fax: | | | | | [place] | Fax: | [phone] | | | | | EST PATIENT | [phone] | | | | | | LEVEL [...] | | 2019 | | Faculty at [place] | MD [facility] [address] | Concerns) | | | | for Health and | [place], [place] | | | | | Healing [address] | [address] | | | | | Ave Mailcode: | [phone] | | | | | [facility] | | | | | | Health and Healing, | | | | | | [facility] | | | | | | Floor [place], [place] | | | | | | [address] | | | | | | [phone] | | | +--------+ + + + [...] Note | + + | Service Account, Travell[employer] Res In Interface - 03/14/2019 2:27 PM [...]
--- OUTSIDE RECORDS SUMMARY | ~2019-09-25 | XMS | Encounter Summary ---
Demographics + + + | Address | [address] | | | [place] [address] | + + + | Home Phone | | + + + | Preferred Language | Unknown | + + + | Marital Status | Single | + + + | Scientologist Affiliation | NRP | + + + [...] Team Providers + +------+ + | Care Fretted Instrument Maker Hand Name | Role | Phone | [...]
--- OUTSIDE RECORDS SUMMARY | ~2019-09-25 | XMS | Encounter Summary ---
Demographics + + + | Address | [address] | | | [place] [address] | + + + | Home Phone [...] Author + + + | Author | [facility] [employer] [facility] | + + + | Organization | [facility] | + + + | Address | Unknown | + + + | Phone | Unavailable | + + + Support + + +---------+ + | Name | Relationship | Address | Phone | + + +---------+ + | Shyam Mcdonald | ECON | Unknown | | + + +---------+ + Care Team Providers + +------+ + | Care Tailman Name | Role | Phone | + +------+ + | No Pcp Per Patient | PCP | Unavailable | + +------+ + Encounter Details +--------+ + + + + | Date | Type | Department | Care Team | Description | +--------+ + + + + | 03/06/ | Pharmacy | Pharmacy @ [facility] | | | | 2019 | Visit | [address] | | | | | | [address] Mailcode: | | | | | | [facility] | | | | | | and Healing, | | | | | | [address] | | | | | | [place], [place] | | | | | | [address] | | | +--------+ + + + [...]
== END 2019-09-25 23:47 | disposition home or self-care (01) ==
LOC: ED 21:40
DX: J06.9 Acute upper respiratory infection, unspecified (principal); Z20.828 Contact with and (suspected) exposure to other viral communicable diseases
CPT/HCPCS: 81001; 99283; U0002